=== PATIENT | female | born 1950 | race Caucasian/White ===

== ENCOUNTER → 2017-02-22 | Outpatient (CLI) | payer MEDICARE ==
[~2017-02-22] MED LIST: AMLO5 PO; BUPR150XL PO; CREON24 PO; DOCU1CAP39 PO; LEVO750T3 PO; OXYC-392 PO; OXYGENTANK NAS.CANULA
[2017-02-22 09:24] LABS: AUTOMATED NEUTROPHIL # 3.8 TH/MM3 (1.8-7.7); BASOPHIL % 0.4 % (0.0-2.0); EOSINOPHIL % 0.4 % (0.0-4.0); HEMATOCRIT 34.4 % (35.0-46.0); HEMO FLAGS DIFF FINAL; LYMPH % 16.4 % (9.0-44.0); LYMPHOCYTE # 0.8 TH/MM3 (1.0-4.8); MEAN CELL VOLUME 94.4 FL (80.0-100.0); MEAN CORPUSCULAR HEMOGLOBIN 30.4 PG (27.0-34.0); MEAN CORPUSCULAR HGB CONC 32.2 % (32.0-36.0); MONO % 1.3 % (0.0-8.0); NEUT % 81.5 % (16.0-70.0); PLATELET COUNT 507 TH/MM3 (150-450); RED BLOOD COUNT 3.64 MIL/MM3 (4.00-5.30); RED CELL DISTRIBUTION WIDTH 14.1 % (11.6-17.2); WHITE BLOOD COUNT 4.7 TH/MM3 (4.0-11.0)
[2017-02-22 10:00] LABS: ALKALINE PHOSPHATASE 102 U/L (45-117); ALT (GPT) 60 U/L (10-53); ANION GAP 8 MEQ/L (5-15); AST (GOT) 23 U/L (15-37); BICARBONATE 28.8 MEQ/L (21.0-32.0); BLOOD UREA NITROGEN 21 MG/DL (7-18); CHLORIDE 104 MEQ/L (98-107); GLOMERULAR FILTRATION RATE 108 ML/MIN (>89); GLUCOSE,FASTING 128 MG/DL (74-99); MAGNESIUM 2.2 MG/DL (1.5-2.5); POTASSIUM 3.8 MEQ/L (3.5-5.1); SODIUM (NA) 141 MEQ/L (136-145); TOTAL BILIRUBIN ADULT 0.4 MG/DL (0.2-1.0)
== END ==
LOC: OLAB 07:05
DX: C25.0 Malignant neoplasm of head of pancreas (principal); C78.7 Secondary malignant neoplasm of liver and intrahepatic bile duct
CPT/HCPCS: 36415; 80053; 83735; 85025

== ENCOUNTER → 2017-02-28 | Outpatient (CLI) | payer MEDICARE ==
[2017-02-28 08:48] LABS: AUTOMATED NEUTROPHIL # 4.5 TH/MM3 (1.8-7.7); BASOPHIL % 0.1 % (0.0-2.0); EOSINOPHIL % 0.3 % (0.0-4.0); HEMATOCRIT 34.5 % (35.0-46.0); HEMO FLAGS DIFF FINAL; LYMPH % 8.6 % (9.0-44.0); LYMPHOCYTE # 0.4 TH/MM3 (1.0-4.8); MEAN CORPUSCULAR HEMOGLOBIN 30.4 PG (27.0-34.0); MEAN CORPUSCULAR HGB CONC 32.3 % (32.0-36.0); MONO % 0.6 % (0.0-8.0); NEUT % 90.4 % (16.0-70.0); PLATELET COUNT 282 TH/MM3 (150-450); RED BLOOD COUNT 3.67 MIL/MM3 (4.00-5.30); RED CELL DISTRIBUTION WIDTH 13.5 % (11.6-17.2); WHITE BLOOD COUNT 4.9 TH/MM3 (4.0-11.0)
[2017-02-28 13:11] LABS: ALKALINE PHOSPHATASE 101 U/L (45-117); ALT (GPT) 84 U/L (10-53); ANION GAP 5 MEQ/L (5-15); AST (GOT) 34 U/L (15-37); BICARBONATE 30.3 MEQ/L (21.0-32.0); BLOOD UREA NITROGEN 22 MG/DL (7-18); CHLORIDE 103 MEQ/L (98-107); GLOMERULAR FILTRATION RATE 84 ML/MIN (>89); MAGNESIUM 2.2 MG/DL (1.5-2.5); POTASSIUM 4.4 MEQ/L (3.5-5.1); SODIUM (NA) 138 MEQ/L (136-145); TOTAL BILIRUBIN ADULT 0.3 MG/DL (0.2-1.0)
== END ==
LOC: OLAB 07:04
DX: C25.0 Malignant neoplasm of head of pancreas (principal); C78.7 Secondary malignant neoplasm of liver and intrahepatic bile duct
CPT/HCPCS: 36415; 80053; 83735; 85025

== ENCOUNTER 2017-03-16 11:41 | Inpatient (IN) | payer MEDICARE, OTHER ==
[~2017-03-16] VITALS: Ht 157.5 cm; Wt 57.2 kg
[2017-03-16] VITALS (8 sets, daily range): BP systolic 121–149; BP diastolic 66–80; PULSE 68–77; RESP 16–22; TEMP 97.8–98.4; O2SAT 92–95
--- NOTE | 2017-03-16 11:48 | PD ---
Physical Exam Date Seen by Provider: March 16, 2017 Time Seen by Provider: 11:46 Narrative [address] SCAN PER [address] MAK. H/O MERTASTATIC PANCREATIC CA. C/O SOB VSS wating for bed asignment Data Data Last Documented VS Vital Signs Date Time Temp Pulse Resp B/P Pulse Ox O2 Delivery O2 Flow Rate FiO2 03/16/17 11:43 98.4 72 20 148/80 93 Room Air [facility] Medical Record Reviewed: No Supervised Visit with YANNI: Max Mosley March 16, 2017 11:48
--- NOTE | 2017-03-16 12:08 | PD ---
HPI Chief Complaint: Respiratory Symptoms Time Seen by Provider: 12:07 Travel History International Travel<30 days: No Contact w/Intl Traveler<30days: No Traveled to known affect area: No History of Present Illness HPI 67-year-old female that presents to the ED for evaluation of shortness of breath for the past week. Patient has a chronic history of pancreatic cancer with metastasis to the lung, liver, stomach. Patient had a Whipple's procedure 2 years ago. Patient follows with Dr. Prajapati and was seen today and he was concerned the patient could be having a pleural effusion versus PE. Patient was told to come here to get some blood work as well as a CTA. Patient states that she's never had the shortness of breath before. No fevers chills or sweats. No chest pain. She doesn't use any inhalers. She denies any history of smoking. History of COPD or asthma. Per patient shortness of breath gets worse with motion but now is becoming more severe especially even when she sits. She has an allergy to morphine. She has not had any imaging. Per patient her doctor did a physical exam and felt that there was possible fluid on the right lower lung. Patient was supposed to have chemotherapy today but she did not want to the chemotherapy secondary to dyspnea symptoms. Last chemo was 2 weeks ago. PFSH Past Medical History Chemotherapy: Yes (2 WEEKS AGO) Diminished Hearing: No Tetanus Vaccination: > 5 Years Influenza Vaccination: Yes ?: Not Social History Alcohol Use: No Tobacco Use: No Substance Use: No Allergies-Medications (Allergen,Severity, Reaction): Coded Allergies: Morphine (Verified Allergy, Severe, Rash, 03/16/17) Reported Meds & Prescriptions Reported Meds & Active Scripts Active Reported Wellbutrin Xl 24 HR (Bupropion HCl) 150 Mg Tab 200 Mg PO DAILY Norvasc (Amlodipine Besylate) 5 Mg Tab 5 Mg PO DAILY Creon (Amylase/Lipase/Protease) 24,000-76,000-120,000 Units Cap 1 Cap PO TIDPC Review of Systems Except as stated in HPI: all other systems reviewed are Neg Physical Exam Narrative GENERAL: SKIN: Warm and dry. HEAD: Atraumatic. Normocephalic. EYES: Pupils equal and round. No scleral icterus. No injection or drainage. ENT: No nasal bleeding or discharge. Mucous membranes pink and moist. Tongue is midline. No uvula deviation. NECK: Trachea midline. No JVD. CARDIOVASCULAR: Regular rate and rhythm. No murmurs, S3, S4. RESPIRATORY: No accessory muscle use. Diminished breath sounds on the right lower quadrant. Breath sounds equal bilaterally. GASTROINTESTINAL: Abdomen soft, non-tender, nondistended. Hepatic and splenic margins not palpable. MUSCULOSKELETAL: Extremities without clubbing, cyanosis, or edema. No obvious deformities. Full range of motion of the upper and lower extremities bilaterally. 2+ pulses bilaterally. NEUROLOGICAL: Awake and alert. No obvious cranial nerve deficits. Motor grossly within normal limits. Five out of 5 muscle strength in the arms and legs. Normal speech. PSYCHIATRIC: Appropriate mood and affect; insight and judgment normal. Data Data Last Documented VS Vital Signs Date Time Temp Pulse Resp B/P Pulse Ox O2 Delivery O2 Flow Rate FiO2 03/16/17 14:26 71 20 129/72 92 Room Air 03/16/17 11:43 98.4 Orders B-Type Natriuretic Peptide (03/16/17 11:50) Ct Pulmonary Angiogram (03/16/17 11:56) Iohexol 350 Inj (Omnipaque 350 Inj) (03/16/17 13:18) Consult Cardiothoracic Surgery (03/16/17 ) Consult Medical Oncology (03/16/17 ) Prothrombin Time / Inr (Pt) (03/16/17 14:20) Act Partial Throm Time (Ptt) (03/16/17 14:20) Ecg Monitoring (03/16/17 14:20) Oximetry (03/16/17 14:20) Admit Order (Ed Use Only) (03/16/17 14:26) Labs Laboratory Tests Test 03/16/17 12:00 B-Type Natriuretic Peptide 30 PG/ML MDM Medical Decision Making Medical Screen Exam Complete: Yes Emergency Medical Condition: Yes Medical Record Reviewed: Yes Interpretation(s) BNP WNL Last Impressions CT Angiography 03/16/17 1156 Signed Impressions: Service Date/Time: Thursday, March 16, 2017 13:05 - CONCLUSION: Large right hemithorax needle thoracentesis Either biliary air or or portal air. CT scan of the abdomen and pelvis is suggested in this patient who has had previous Whipple. Mihai Harper MD FACR Differential Diagnosis PE versus pleural effusion versus shortness of breath versus worsening metastatic disease versus pneumonia Narrative Course 67-year-old female that presents to the ED for evaluation of shortness of breath. Patient was properly examined and was found to have signs and symptoms concerning for pleural effusion versus PE. Dr. Reynolds patient's oncologist had called and left a message to Dr. Shields who gave me the report the patient required CTA as well as a BNP. Patient comes here with paperwork saying the same. Labs and imaging ordered. Imaging did show a significant pleural effusion on the right lung. About two thirds of the lung cover. BNP within normal limits. Case was discussed in my attending who agrees with plan. I spoke with Dr. Reynolds patient's oncologist and was made aware of findings and he agrees that the CT abdomen findings does not appear to be acute and he doesn't believe that this is necessary to do any CT scan. He does recommend that we speak with cardiothoracic surgeon Dr. Coello. I spoke personally with Dr. Coello who will come here and see the patient for possible thoracocentesis versus chest tube placement. This was discussed with the patient and the family who are in agreement with plan. DEION was paged. Dr. Pisano agrees to admission. She is not sure what the patient needs inpatient versus obs and wants case management admission. Procedures EKG Prior to Arrival: No Diagnosis Primary Impression: Pleural effusion on right Additional Impression: Pancreatic cancer Qualified Code: C25.9 - Malignant neoplasm of pancreas, unspecified location of malignancy Admitting Information Admitting Physician Requests: Case Management Jhony Pacheco March 16, 2017 12:08
[2017-03-16] MEDS ORDERED: IOHEXOL 350 MG/ML 10 ML VIAL (for RAD DIAG) IV ONE (13:18)
[2017-03-16] MEDS ORDERED: BUPR150XL PO (13:32)
[2017-03-16] MEDS ORDERED: AMLO5 PO (13:32)
[2017-03-16] MEDS ORDERED: CREON24 PO (13:32)
--- NOTE | 2017-03-16 13:36 | RADRPT ---
EXAM DATE/TIME: 03/16/2017 13:05 [facility] COMPARISON: No previous studies available for comparison. INDICATIONS : Right posterior chest pain, shortness of breath. IV CONTRAST: 74 cc Omnipaque 350 (iohexol) IV RADIATION DOSE: 5.86 CTDIvol (mGy) MEDICAL HISTORY : Carcinoma, pancreas. SURGICAL HISTORY : Whipple procedure. ENCOUNTER: Initial ACUITY: 2 days PAIN SCALE: 5/10 LOCATION: Right posterior chest. TECHNIQUE: Volumetric scanning of the chest was performed using a pulmonary embolism protocol MIP images were re constructed. Using automated exposure control and adjustment of the mA and/or kV according to patien t size, radiation dose was kept as low as reasonably achievable to obtain optimal diagnostic quality images. FINDINGS: There is large right pleural effusion occupying approximately 2/3 of the right hemithorax. The left lung is clear There is minimal nonspecific adenopathy There is no pericardial effusion There is either biliary air or portal air present in the dome of the liver. CONCLUSION: Large right hemithorax needle thoracentesis Either biliary air or or portal air. CT scan of the abdomen and pelvis is suggested in this patient who has had previous Whipple. Mihai Harper MD FACR on March 16, 2017 at 13:30 Board Certified Radiologist. This report was verified electronically.
[2017-03-16] MEDS ORDERED: MAGNESIUM HYDROXIDE SUSP 30 ML CUP PO PRN (14:30)
[2017-03-16] MEDS ORDERED: ONDANSETRON HCL 4 MG/2 ML VIAL IVP PRN (14:30)
[2017-03-16] MEDS: DOCUSATE SODIUM 100 MG CAP PO SCH ×2 (14:30→21:58)
[2017-03-16] MEDS ORDERED: SODIUM CHLORIDE 0.9% FLUSH 10 ML FLUSH IV FLUSH PRN (14:30)
[2017-03-16] MEDS ORDERED: PROCHLORPERAZINE 25 MG SUPP RECTAL PRN (14:30)
[2017-03-16] MEDS ORDERED: NALOXONE HCL 0.4 MG/ML AMP IV PRN (14:45)
[2017-03-16 15:15] LABS: APTT (PATIENT) 25.9 SEC (24.3-30.1); PROTHROMBIN TIME - PATIENT 10.5 SEC (9.8-11.6)
--- NOTE | 2017-03-16 15:18 | HHI.HP ---
[facility] Shawn Benavides MD Admission Diagnosis right pleural effusion, pancreatic cancer with mets Diagnoses: Chief Complaint: sob Travel History International Travel<30 Days: No Contact w/Intl Traveler <30 Da: No Traveled to Known Affected Are: No History of Present Illness The patient is a very pleasant 69-year-old female with past medical history pancreatic cancer with metastasis to the lung, liver, stomach, Whipple procedure 2013, currently restarted with Dr. Reynolds oncology. The patient seen today by Dr. Reynolds's office who sent her here for further evaluation of breath. There is a concern lower infusion versus PE. Patient had a CTA in the emergency room shows right pleural effusion. Dr. Reynolds recommended CT surgeon for evaluation, chest tube vs thoracentesis. Patient says shortness of breath started for the past 5 days, associated lower extremity edema for the past 3 days. She has some shortness of breath with ambulation and she feels tired. She has constant right back pain. The pain is worse when lying down and with certain movements. She has a non-productive cough. Denies fever or chills. Denies headaches, lightheadedness, chest pain, palpitations, diaphoresis. No nausea or vomiting. Has normal bowel movements. Says she takes Creon. No urinary complaints. No bladder or bowel incontinence. No motor or sensory deficit. Review of Systems Except as stated in HPI: all other systems reviewed are Neg Past Family Social History Past Medical History Pancreatic cancer with metastasis to the lung, liver, stomach, Whipple procedure 2013 HTN Past Surgical History Whipple procedure 2014 Lower lip surgery Exploratory lap Cyst removal right buttocks Reported Medications Last Impressions CT Angiography 03/16/17 1156 Signed Impressions: Service Date/Time: Thursday, March 16, 2017 13:05 - CONCLUSION: Large right hemithorax needle thoracentesis Either biliary air or or portal air. CT scan of the abdomen and pelvis is suggested in this patient who has had previous Whipple. Mihai Harper MD FACR Allergies: Coded Allergies: Morphine (Verified Allergy, Severe, Rash, 03/16/17) Family History Mother had hypertension Siblings are healthy Social History Denies current or history of tobacco use, illicit drug use or alcohol use. Physical Exam Vital Signs Vital Signs Date Time Temp Pulse Resp B/P Pulse Ox O2 Delivery O2 Flow Rate FiO2 03/16/17 14:56 18 94 Nasal Cannula 2 03/16/17 14:26 71 20 129/72 92 Room Air 03/16/17 12:01 20 93 Room Air 03/16/17 11:43 98.4 72 20 148/80 93 Room Air Physical Exam GENERAL: This is a very pleasant 67-year-old female, well-nourished, well- developed patient, sitting up in the bed soft speech with some shortness of breath. SKIN: No rashes, ecchymoses or lesions. Cool and dry. HEAD: Atraumatic. Normocephalic. No temporal or scalp tenderness. EYES: Pupils equal round and reactive. Extraocular motions intact. No scleral icterus. No injection or drainage. ENT: Nose without bleeding, purulent drainage or septal hematoma. Throat without erythema, tonsillar hypertrophy or exudate. Uvula midline. Airway patent. NECK: Trachea midline. No JVD or lymphadenopathy. Supple, nontender, no meningeal signs. CARDIOVASCULAR: Regular rate and rhythm without murmurs, gallops, or rubs. RESPIRATORY: Decreased breaths sounds right lower lung field. No wheezing. GASTROINTESTINAL: Abdomen soft, non-tender, nondistended. No hepato-splenomegaly , or palpable masses. No guarding. MUSCULOSKELETAL: Extremities without clubbing, cyanosis. Trace lower extremity edema. No joint tenderness, effusion, or edema noted. No calf tenderness. Negative Homans sign bilaterally. NEUROLOGICAL: Awake and alert. Cranial nerves II through XII intact. Motor and sensory grossly within normal limits. Five out of 5 muscle strength in all muscle groups. Normal speech. Laboratory Laboratory Tests Test 03/16/17 03/16/17 12:00 14:00 B-Type Natriuretic Peptide 30 Prothrombin Time 10.5 Prothromb Time International 1.0 Ratio Activated Partial 25.9 Thromboplast Time Imaging Last Impressions CT Angiography 03/16/17 2296 Signed Impressions: Service Date/Time: Thursday, March 16, 2017 13:05 - CONCLUSION: Large right hemithorax needle thoracentesis Either biliary air or or portal air. CT scan of the abdomen and pelvis is suggested in this patient who has had previous Whipple. Mihai Harper MD FACR Assessment and Plan Assessment and Plan Very pleasant 67-year-old female with: Shortness of breath and moderate large right pleural effusion, likely malignant. Pancreatic cancer with metastasis to the lung, liver, stomach, Whipple procedure [address] Reynolds oncology currently on chemo CT Chest reviewed findings discussed with ER PA, patient. Consult Dr. Reynolds her oncology doctor. He recommends cardiothoracic surgeon for evaluation. Keep nothing by mouth this time. Patient might need thoracentesis versus chest tube. Oxygen supplied by nasal cannula, keep oxygen saturation more than 92%. She is saturating well on 2 L nasal cannula at this time. Monitor closely. Pain medications per pain scale I'm also Dilaudid for breakthrough pain. Patient is allergic to morphine. Restart Creon HTN. Restart amlodipine. Currently blood pressure is controlled at this time. Monitor blood pressure and adjust medications as needed. DVT prophylaxis SCD/teds. Hold on chemical prophylaxis at this time due to possible thoracentesis versus chest tube Physician Certification 2 Midnight Certification Type: Admission for Inpatient Services Order for Inpatient Services The services are ordered in accordance with Medicare regulations or non- Medicare payer requirements, as applicable. In the case of services not specified as inpatient-only, they are appropriately provided as inpatient services in accordance with the 2-midnight benchmark. Estimated LOS (days): 3 days is the estimated time the patient will need to remain in the hospital, assuming treatment plan goals are met and no additional complications. Post-Hospital Plan: Home Mariluz Julian MD March 16, 2017 15:18
[2017-03-16] MEDS ORDERED: LIDOCAINE 1%/EPINEPHrine 1:100,000 SOLN 20 ML VIAL INFIL SCH (16:15)
--- NOTE | 2017-03-16 17:32 | PD.OP ---
cc: Emily Yadav MD; Flaco Reynolds MD Operative Report Date of Surgery: March 16, 2017 Preoperative Diagnosis: (1) Pancreatic cancer (2) Pleural effusion on right Postoperative Diagnosis: same Procedure: Right chest tube insertion Anesthesia: Local Surgeon: Emily Yadav Property Assessment Monitor(s): none Operation and Findings: After informed consent and a time out, the right chest was prepped and draped. 1% Lidocaine was infiltrated in the skin and subcutaneous tissue. A small incision was made and a fine clamp was used to bluntly enter the right pleural space. Serosanguineous fluid was present, and a 28F chest tube was inserted and secured with a 2-0 silk stitch. Overall, 2 liters of fluid was drained. Fluid was submitted for cytology. The patient tolerated the procedure well and a CXR is pending. Emily Yadav MD March 16, 2017 17:32
[2017-03-16] MEDS: HYDROmorphone HCL PF 1 MG/ML VIAL IV PRN ×2 (17:34→21:58)
--- NOTE | 2017-03-16 17:42 | PD.CONS ---
History of Present Illness Service CT Surgery Consult Requested By Dr. Reynolds Reason for Consult Right pleural effusion, dyspnea Primary Care Physician Shawn Benavides MD Diagnoses: (1) Pancreatic cancer (2) Pleural effusion on right History of Present Illness 67 y/o female presents to the ED with dyspnea. she was directed from Dr. Reynolds ' office after a right pleural effusion was found on recent imaging. She has a h/o pancreatic carcinoma s/p Whipple resection at [facility] ~3 yrs ago. She has subsequently done fairly well with chemotherapy until this was found. She denies nausea, vomiting, fever, chills, cough. Review of Systems Constitutional: DENIES: Diaphoretic episodes, Fatigue, Fever, Weight gain, Weight loss, Chills, Dizziness, Change in appetite, Night Sweats Endocrine: DENIES: Abnorml menstrual pattern, Heat/cold intolerance, Polydipsia , Polyuria, Polyphagia Eyes: DENIES: Blurred vision, Diplopia, Eye inflammation, Eye pain, Vision loss , Photosensitivity, Double Vision Ears, nose, mouth, throat: DENIES: Tinnitus, Hearing loss, Vertigo, Nasal discharge, Oral lesions, Throat pain, Hoarseness, Ear Pain, Running Nose, Epistaxis, Sinus Pain, Toothache, Odynophagia Respiratory: COMPLAINS OF: Shortness of breath, DENIES: Apneas, Cough, Snoring , Wheezing, Hemoptysis, Sputum production Cardiovascular: DENIES: Chest pain, Palpitations, Syncope, Dyspnea on Exertion , PND, Lower Extremity Edema, Orthopnea, Claudication Gastrointestinal: DENIES: Abdominal pain, Black stools, Bloody stools, Constipation, Diarrhea, Nausea, Vomiting, Difficulty Swallowing, Anorexia Genitourinary: DENIES: Abnormal vaginal bleeding, Dysmenorrhea, Dyspareunia, Sexual dysfunction, Urinary frequency, Urinary incontinence, Urgency, Hematuria , Dysuria, Nocturia, Vaginal discharge Musculoskeletal: DENIES: Joint pain, Muscle aches, Stiffness, Joint Swelling, Back pain, Neck pain Integumentary: DENIES: Abnormal pigmentation, Pruritus, Rash, Nail changes, Breast masses, Breast skin changes, Nipple discharge Hematologic/lymphatic: DENIES: Bruising, Lymphadenopathy Immunologic/allergic: DENIES: Eczema, Urticaria Neurologic: DENIES: Abnormal gait, Headache, Localized weakness, Paresthesias, Seizures, Speech Problems, Tremor, Poor Balance Psychiatric: DENIES: Anxiety, Confusion, Mood changes, Depression, Hallucinations, Agitation, Suicidal Ideation, Homicidal Ideation, Delusions Past Family Social History Allergies: Coded Allergies: Morphine (Verified Allergy, Severe, Rash, 03/16/17) Past Medical History Past Medical History Pancreatic cancer with metastasis to the lung, liver, stomach, Whipple procedure 2013 HTN Past Surgical History Whipple procedure 2014 Lower lip surgery Exploratory lap Cyst removal right buttocks Active Ordered Medications Current Medications Medications (Trade) Dose Ordered Sig/Jaziel Route Start Time Stop Time Status Last Admin (NS Flush) 2 ml UNSCH PRN IV FLUSH 03/16/17 14:30 (NS Flush) 2 ml BID IV FLUSH 03/16/17 21:00 (Tylenol) 650 mg Q4H PRN PO 03/16/17 14:30 (Zofran Inj) 4 mg Q6H PRN IVP 03/16/17 14:30 (Compazine Supp) 25 mg Q12H PRN RECTAL 03/16/17 14:30 (Colace) 100 mg Q12H PO 03/16/17 14:30 (Milk Of Magnesia Liq) 30 ml Q12H PRN PO 03/16/17 14:30 (Restoril) 15 mg HS PRN PO 03/16/17 14:30 (Norvasc) 5 mg DAILY PO 03/17/17 09:00 (Wellbutrin Sr 12 Hr) 200 mg DAILY PO 03/17/17 09:00 (Creon 24-76-120) 1 cap TIDPC PO 03/16/17 18:30 ([place] 5-325 Mg) 1 tab Q4H PRN PO 03/16/17 14:45 ([place] 10-325 Mg) 1 tab Q4H PRN PO 03/16/17 14:45 (Dilaudid Pf Inj) 0.5 mg Q3H PRN IV 03/16/17 14:45 (Narcan Inj) 0.4 mg UNSCH PRN IV 03/16/17 14:45 Current Medications Medications (Trade) Dose Ordered Sig/Jaziel Route Start Time Stop Time Status Last Admin (NS Flush) 2 ml UNSCH PRN IV FLUSH 03/16/17 14:30 (NS Flush) 2 ml BID IV FLUSH 03/16/17 21:00 (Tylenol) 650 mg Q4H PRN PO 03/16/17 14:30 (Zofran Inj) 4 mg Q6H PRN IVP 03/16/17 14:30 (Compazine Supp) 25 mg Q12H PRN RECTAL 03/16/17 14:30 (Colace) 100 mg Q12H PO 03/16/17 14:30 (Milk Of Magnbozena Liq) 30 ml Q12H PRN PO 03/16/17 14:30 (Restoril) 15 mg HS PRN PO 03/16/17 14:30 (Norvasc) 5 mg DAILY PO 03/17/17 09:00 (Wellbutrin Sr 12 Hr) 200 mg DAILY PO 03/17/17 09:00 (Creon 24-76-120) 1 cap TIDPC PO 03/16/17 18:30 ([place] 5-325 Mg) 1 tab Q4H PRN PO 03/16/17 14:45 ([place] 10-325 Mg) 1 tab Q4H PRN PO 03/16/17 14:45 (Dilaudid Pf Inj) 0.5 mg Q3H PRN IV 03/16/17 14:45 (Narcan Inj) 0.4 mg UNSCH PRN IV 03/16/17 14:45 Family History unremarkable 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 SKIN: No rashes, ecchymoses or lesions. Cool and dry. HEAD: Atraumatic. Normocephalic. No temporal or scalp tenderness. EYES: Pupils equal round and reactive. Extraocular motions intact. No scleral icterus. No injection or drainage. ENT: Nose without bleeding, purulent drainage or septal hematoma. Throat without erythema, tonsillar hypertrophy or exudate. Uvula midline. Airway patent. NECK: Trachea midline. No JVD or lymphadenopathy. Supple, nontender, no meningeal signs. CARDIOVASCULAR: Regular rate and rhythm without murmurs, gallops, or rubs. RESPIRATORY: decreased BS on right. GASTROINTESTINAL: Abdomen soft, non-tender, nondistended. No hepato-splenomegaly , or palpable masses. No guarding. Well-healed abdominal incisions MUSCULOSKELETAL: Extremities without clubbing, cyanosis, or edema. No joint tenderness, effusion, or edema noted. No calf tenderness. Negative Homans sign bilaterally. NEUROLOGICAL: Awake and alert. Cranial nerves II through XII intact. Motor and sensory grossly within normal limits. Five out of 5 muscle strength in all muscle groups. Normal speech. Laboratory Laboratory Tests Test 03/16/17 03/16/17 12:00 14:00 B-Type Natriuretic Peptide 30 Prothrombin Time 10.5 Prothromb Time International 1.0 Ratio Activated Partial 25.9 Thromboplast Time Imaging Last Impressions CT Angiography 03/16/17 1156 Signed Impressions: Service Date/Time: Thursday, March 16, 2017 13:05 - CONCLUSION: Large right hemithorax needle thoracentesis Either biliary air or or portal air. CT scan of the abdomen and pelvis is suggested in this patient who has had previous Whipple. Mihai Harper MD FACR Course Patient admitted for chest tube placement and pleuradesis. Assessment and Plan Problem List: (1) Pancreatic cancer Status: Acute (2) Pleural effusion on right Status: Acute Assessment and Plan Recommend right chest tube placement and pleuradesis when the drainage is less than 150ml/24 hrs. Plan discussed with her and her . Problem Qualifiers (1) Pancreatic cancer: Qualified Code: C25.9 - Malignant neoplasm of pancreas, unspecified location of malignancy Emily Yadav MD March 16, 2017 17:42
--- NOTE | 2017-03-16 17:58 | RADRPT ---
EXAM DATE/TIME: 03/16/2017 17:41 [facility] COMPARISON: CT PULMONARY ANGIOGRAM, March 16, 2017, 13:05. INDICATIONS : Right chest tube placement MEDICAL HISTORY : Carcinoma, pancreas SURGICAL HISTORY : Whipple procedure, right side port ENCOUNTER: Subsequent ACUITY: 1 day PAIN SCORE: Non-responsive. LOCATION: Right chest FINDINGS: There has been interval insertion of a right thoracostomy tube with evacuation of most of the right e ffusion. There is mild residual parenchymal disease and effusion at the base. A tiny apical pneumotho rax is present without 12-13 mm separation of apical pleural layers. Right chest port is again noted. Left lung is stable and clear. Cardiac contours are satisfactory. CONCLUSION: Femoral thoracostomy tube placement. Minimal residual right base effusion and mild asthma parenchymal opacity. Tiny apical pneumothorax John Barba MD on March 16, 2017 at 17:54 Board Certified Radiologist. This report was verified electronically.
[2017-03-16] MEDS: LIPASE/PROTEASE/AMYLASE (24,000/76,000/120,000) CAP PO SCH (18:30)
[2017-03-16] MEDS: SODIUM CHLORIDE 0.9% FLUSH 10 ML FLUSH IV FLUSH SCH (21:00)
[2017-03-17] VITALS (7 sets, daily range): BP systolic 96–140; BP diastolic 55–69; PULSE 62–70; RESP 15–20; TEMP 97.2–100.2; O2SAT 90–96
[2017-03-17] MEDS: HYDROmorphone HCL PF 1 MG/ML VIAL IV PRN ×4 (02:31→17:25)
--- NOTE | 2017-03-17 05:03 | RADRPT ---
EXAM DATE/TIME: 03/17/2017 04:06 [facility] COMPARISON: CHEST SINGLE AP, March 16, 2017, 17:41. INDICATIONS : Shortness of breath, possible pulmonary disease. MEDICAL HISTORY : Carcinoma, pancreas. SURGICAL HISTORY : Whipple ENCOUNTER: Subsequent ACUITY: 2 days PAIN SCORE: 4/10 LOCATION: Bilateral chest FINDINGS: There is a small 5 mm right apical pneumothorax. This is decreased in size compared to the prior stud y. Right chest tube remains in place. There is atelectasis in both lung bases. Otherwise, no other si gnificant changes are demonstrated. CONCLUSION: Small 5 mm right apical pneumothorax. Puma Pierre MD on March 17, 2017 at 5:01 Board Certified Radiologist. This report was verified electronically.
[2017-03-17] MEDS: ACETAMINOPHEN/HYDROcodone 325 MG/10 MG TAB PO PRN ×4 (05:36→18:29)
--- NOTE | 2017-03-17 07:23 | HHI.PR ---
Subjective Remarks Patient feels much better after chest tube placed yesterday. Says she had 2 L removed yesterday and felt much better. Less shortness of breath. Still with some pain especially with deep inspiration. Denies fevers or chills overnight. Coughing nonproductive cough. Encourage incentive spirometry. Reports some serosanguineous discharge but the surgical site. She feels is improving. Denies palpitations, nausea, diaphoresis, vomiting, constipation. Objective Vitals Vital Signs Date Time Temp Pulse Resp B/P Pulse Ox O2 Delivery O2 Flow Rate FiO2 03/17/17 05:00 100.2 62 15 140/ 94 03/17/17 03:19 16 03/17/17 00:00 99.3 70 16 121/65 96 03/16/17 20:49 74 03/16/17 20:00 98.2 72 16 127/72 95 03/16/17 18:47 68 03/16/17 17:26 97.8 68 22 121/66 94 03/16/17 16:42 97.9 77 20 149/79 95 03/16/17 14:56 18 94 Nasal Cannula 2 03/16/17 14:26 71 20 129/72 92 Room Air 03/16/17 12:01 20 93 Room Air 03/16/17 11:43 98.4 72 20 148/80 93 Room Air I/O 03/16/17 03/16/17 03/16/17 03/17/17 03/17/17 03/17/17 07:00 15:00 23:00 07:00 15:00 23:00 Intake Total 240 ml Balance 240 ml Intake Oral 240 ml Imaging Last Impressions Chest X-Ray 03/17/17 0600 Signed Impressions: Service Date/Time: Friday, March 17, 2017 04:06 - CONCLUSION: Small 5 mm right apical pneumothorax. Puma Pierre MD CT Angiography 03/16/17 1156 Signed Impressions: Service Date/Time: Thursday, March 16, 2017 13:05 - CONCLUSION: Large right hemithorax needle thoracentesis Either biliary air or or portal air. CT scan of the abdomen and pelvis is suggested in this patient who has had previous Whipple. Mihai Harper MD FACR Objective Remarks GENERAL: This is a very pleasant 67-year-old female, well-nourished, well- developed patient, sitting up in the bed soft speech with some shortness of breath. SKIN: No rashes, ecchymoses or lesions. Cool and dry. HEAD: Atraumatic. Normocephalic. No temporal or scalp tenderness. EYES: Pupils equal round and reactive. Extraocular motions intact. No scleral icterus. No injection or drainage. ENT: Nose without bleeding, purulent drainage or septal hematoma. Throat without erythema, tonsillar hypertrophy or exudate. Uvula midline. Airway patent. NECK: Trachea midline. No JVD or lymphadenopathy. Supple, nontender, no meningeal signs. CARDIOVASCULAR: Regular rate and rhythm without murmurs, gallops, or rubs. RESPIRATORY: Decreased breaths sounds right lower lung field, improving . Chest tube in place. Dressing soaked with sdrosanguinous discharge, another dresign placed on the top reinforcing. No wheezing. GASTROINTESTINAL: Abdomen soft, non-tender, nondistended. No hepato-splenomegaly , or palpable masses. No guarding. MUSCULOSKELETAL: Extremities without clubbing, cyanosis. Trace lower extremity edema. No joint tenderness, effusion, or edema noted. No calf tenderness. Negative Homans sign bilaterally. NEUROLOGICAL: Awake and alert. Cranial nerves II through XII intact. Motor and sensory grossly within normal limits. Five out of 5 muscle strength in all muscle groups. Normal speech. A/P Assessment and Plan Very pleasant 67-year-old female with: Shortness of breath and moderate large right pleural effusion, likely malignant. Chest tube placed 03/16 Dr Coello CTS. Small Pneumothorax 5% Pancreatic cancer with metastasis to the lung, liver, stomach, Whipple procedure [address] Reynolds oncology currently on chemo CT Chest reviewed findings discussed with ER PA, patient. Consult Dr. Reynolds her oncology doctor. He recommends cardiothoracic surgeon for evaluation. S/P Right chest tube insertion by Dr Coello CTS on 03/16/17. Improving CXR 03/17 reviewed and discusse dwith the patient Small 5 mm right apical pneumothorax. Patient is satting well on nasal canula. Oxygen supplied by nasal cannula, keep oxygen saturation more than 92%. She is saturating well on 2 L nasal cannula at this time. Monitor closely. Pain medications per pain scale PO and also Dilaudid for breakthrough pain. Patient is allergic to morphine. Continue Creon HTN. Restart amlodipine. Currently blood pressure is controlled at this time. Monitor blood pressure and adjust medications as needed. DVT prophylaxis SCD/teds. Hold on chemical prophylaxis at this time due to chest tube, restart as indicated by CTS Discussed with the patient, nurse, family at bedside Mariluz Julian MD March 17, 2017 07:23
[2017-03-17 07:43] LABS: AUTOMATED NEUTROPHIL # 7.7 TH/MM3 (1.8-7.7); BASOPHIL # 0.1 TH/MM3 (0-0.2); BASOPHIL % 0.7 % (0.0-2.0); EOSINOPHIL # 0.2 TH/MM3 (0-0.4); EOSINOPHIL % 1.6 % (0.0-4.0); HEMATOCRIT 32.6 % (35.0-46.0); LYMPH % 9.3 % (9.0-44.0); LYMPHOCYTE # 0.9 TH/MM3 (1.0-4.8); MEAN CELL VOLUME 93.3 FL (80.0-100.0); MEAN CORPUSCULAR HEMOGLOBIN 31.4 PG (27.0-34.0); MEAN CORPUSCULAR HGB CONC 33.7 % (32.0-36.0); NEUT % 80.4 % (16.0-70.0); PLATELET COUNT 646 TH/MM3 (150-450); RED CELL DISTRIBUTION WIDTH 15.1 % (11.6-17.2); WHITE BLOOD COUNT 9.6 TH/MM3 (4.0-11.0)
[2017-03-17 07:52] LABS: HEMO FLAGS AUTO DIFF
[2017-03-17 08:12] LABS: BICARBONATE 32.4 MEQ/L (21.0-32.0); POTASSIUM 3.2 MEQ/L (3.5-5.1)
[2017-03-17 08:51] LABS: BANDS 15 % (0-6); EOSINOPHILS 2 % (0-4); NEUTROPHIL # MANUAL DIFF 7.1 TH/MM3 (1.8-7.7); PLATELET ESTIMATE SMEAR HIGH (NORMAL); PLATELET MORPHOLOGY NORMAL (NORMAL); POLYS (SEG NEUTROPHILS) 59 % (16-70); SCAN/DIFF FINAL DIFF MANUAL; WBC DIFF SAMPLE 100
[2017-03-17] MEDS: amLODIPine BESYLATE 5 MG TAB PO SCH (09:28)
[2017-03-17] MEDS: buPROPion HCL 100 MG SUSTAINED RELEASE TAB PO SCH (09:28)
[2017-03-17] MEDS: LIPASE/PROTEASE/AMYLASE (24,000/76,000/120,000) CAP PO SCH ×3 (09:28→17:24)
[2017-03-17] MEDS: SODIUM CHLORIDE 0.9% FLUSH 10 ML FLUSH IV FLUSH SCH ×2 (09:29→22:16)
--- NOTE | 2017-03-17 09:47 | MB ---
cc: CELSO GARCIA DATE OF CONSULTATION: 03/17/2017 CHIEF COMPLAINT 1. Massive right pleural effusion 2. Metastatic pancreatic cancer. 3. Probable progression of disease. PATIENT PROFILE The patient is a 67-year-old female. She is for the second time, and has been to the same person for 35 years. She has two sons from the first , one at the age of 24 the other is well. She has a daughter and five grandchildren. The patient currently lives in [place], [place]. 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 She has an occasional glass of wine. She has never smoked. HISTORY OF PRESENT ILLNESS The patient is a 66-year-old female who developed abdominal pain and obstructive jaundice. 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 She was treated with adjuvant gemcitabine from 07/22/2014 through 10/2014. She then did well but unfortunately developed metastatic disease to the liver identified in October. She was treated with Folfirinox chemotherapy and underwent an abdominal exploration for possible resection of liver metastases which was unsuccessful. She developed progressive disease. Her treatment was administered in [place] by a medical oncologist. She was then switched to a regimen of gemcitabine and Abraxane. Her most recent treatment was again given in [place] and I saw her yesterday to assume her care and administer further chemotherapy. When she was seen in the office she complained of shortness of breath and her lung sounds were diminished throughout the right lung suggestive of a large effusion. I referred her to the emergency room and a CT scan of the thorax showed a massive right pleural effusion. No evidence of pulmonary emboli and Dr. Yadav was kind enough to place a chest tube. I feel that she probably has progressive disease, not just simply because of the right pleural effusion but she has had a rising CA19-9 and the current value is 1650 on March 09, 2017. Her chest tube was placed yesterday and she is breathing much better. PAST SURGICAL HISTORY 1. Whipple procedure 06/16/2014 for pathologic T3, N0, M0, pancreatic cancer. 2. Cataract. 3. Dqyjji-[id number]-Mcqj placement. 4. Abdominal exploration 02/08/2016 for potential resection of liver metastases. The operation was aborted due to extrahepatic disease involving perigastric lymph nodes. PAST MEDICAL HISTORY 1. Pancreatic insufficiency. 2. Hypertension. 3. Depression. 4. Stage IV pancreatic cancer. MEDICATIONS PRIOR TO ADMISSION 1. Creon 2. Norvasc. 3. oxycodone 4. Wellbutrin. 5. Xanax. ALLERGIES MORPHINE SULFATE. FAMILY HISTORY: The family history is noncontributory. PHYSICAL EXAMINATION VITAL SIGNS: Temperature 100.2, pulse 64, respiratory rate 18 afebrile. O2 sat 94%. HEAD, EYES, EARS, NOSE, AND THROAT: Head is normocephalic. Conjunctiva normal. Oropharynx unremarkable. LYMPHATICS: No adenopathy. HEART: Regular rhythm. LUNGS: Left lung clear, right lung decreased breath sounds with chest tube in place. ABDOMEN: No obvious splenomegaly. No tenderness. EXTREMITIES: Trace edema. MUSCULOSKELETAL: No bone pain. NEUROLOGIC: No weakness. Cognition, affect normal. SKIN: Normal. ASSESSMENT 67-year female with pancreatic cancer. She presents with a massive right pleural effusion occupying approximately 80% of the lung, I believe this due to malignancy. PLAN A chest tube has been placed as requested. She will undergo pleurodesis and following this she can be discharged home. Tomorrow if there is no significant bleeding in the chest tube, I would recommend beginning Lovenox. In looking at her output there is a fair amount of blood in the tube presently but hopefully by tomorrow it will have stopped. When she is discharged I will resume Abraxane and gemcitabine as she has only received one treatment and unfortunately we do not have effective third line regimens for pancreatic cancer. Thank you Dr Yadav for placing the chest tube. MD KATELYNN Musa/ines /9:22 AM /9:36 AM MTDTika
--- NOTE | 2017-03-17 13:23 | PD.CAR.PN ---
CVT Progress Note Subjective/Hospital Course: Doing well. Some fluid leaking around tube saturating the dressing. Objective: Vital Signs Date Time Temp Pulse Resp B/P Pulse Ox O2 Delivery O2 Flow Rate FiO2 03/17/17 11:50 97.2 68 20 96/55 90 03/17/17 07:50 99.3 65 20 125/69 94 03/17/17 07:28 18 03/17/17 07:28 18 03/17/17 05:00 100.2 62 15 140/ 94 03/17/17 00:00 99.3 70 16 121/65 96 03/16/17 20:49 74 03/16/17 20:00 98.2 72 16 127/72 95 03/16/17 18:47 68 03/16/17 17:26 97.8 68 22 121/66 94 03/16/17 16:42 97.9 77 20 149/79 95 03/16/17 14:56 18 94 Nasal Cannula 2 03/16/17 14:26 71 20 129/72 92 Room Air Labs: Laboratory Tests Test 03/17/17 07:10 White Blood Count 9.6 TH/MM3 (4.0-11.0) Red Blood Count 3.50 MIL/MM3 (4.00-5.30) Hemoglobin 11.0 GM/DL (11.6-15.3) Hematocrit 32.6 % (35.0-46.0) Mean Corpuscular Volume 93.3 FL (80.0-100.0) Mean Corpuscular Hemoglobin 31.4 PG (27.0-34.0) Mean Corpuscular Hemoglobin 33.7 % Concent (32.0-36.0) Red Cell Distribution Width 15.1 % (11.6-17.2) Platelet Count 646 TH/MM3 (150-450) Mean Platelet Volume 7.3 FL (7.0-11.0) Neutrophils (%) (Auto) 80.4 % (16.0-70.0) Lymphocytes (%) (Auto) 9.3 % (9.0-44.0) Monocytes (%) (Auto) 8.0 % (0.0-8.0) Eosinophils (%) (Auto) 1.6 % (0.0-4.0) Basophils (%) (Auto) 0.7 % (0.0-2.0) Neutrophils # (Auto) 7.7 TH/MM3 (1.8-7.7) Lymphocytes # (Auto) 0.9 TH/MM3 (1.0-4.8) Monocytes # (Auto) 0.8 TH/MM3 (0-0.9) Eosinophils # (Auto) 0.2 TH/MM3 (0-0.4) Basophils # (Auto) 0.1 TH/MM3 (0-0.2) CBC Comment AUTO DIFF Differential Total Cells 100 Counted Neutrophils % (Manual) 59 % (16-70) Band Neutrophils % 15 % (0-6) Lymphocytes % 17 % (9-44) Monocytes % 7 % (0-8) Eosinophils % 2 % (0-4) Neutrophils # (Manual) 7.1 TH/MM3 (1.8-7.7) Differential Comment FINAL DIFF MANUAL Platelet Estimate HIGH (NORMAL) Platelet Morphology Comment NORMAL (NORMAL) Sodium Level 135 MEQ/L (136-145) Potassium Level 3.2 MEQ/L (3.5-5.1) Chloride Level 95 MEQ/L (98-107) Carbon Dioxide Level 32.4 MEQ/L (21.0-32.0) Anion Gap 8 MEQ/L (5-15) Blood Urea Nitrogen 13 MG/DL (7-18) Creatinine 0.47 MG/DL (0.50-1.00) Estimat Glomerular Filtration 133 ML/MIN Rate (>89) Random Glucose 123 MG/DL (74-106) Calcium Level 7.9 MG/DL (8.5-10.1) Result Diagram: 03/17/17 0710 03/17/17 07 Imaging: Last 24 hours Impressions Chest X-Ray 03/17/17 0600 Signed Impressions: Service Date/Time: Friday, March 17, 2017 04:06 - CONCLUSION: Small 5 mm right apical pneumothorax. Puma Pierre MD Cardiovascular: RRR Pulmonary: CTA GI/: NABS, NT CT: ~250ml/24 hrs, no air leak Plan: Continue chest tube to suction. She may be off suction to walk in the halls. CXR in AM Talc pleuradesis when drainage decreases. Emily Yadav MD March 17, 2017 13:23
[2017-03-17] MEDS: DOCUSATE SODIUM 100 MG CAP PO SCH (13:39)
[2017-03-17] MEDS ORDERED: POTASSIUM CHLORIDE 20 MEQ CONTROLLED RELEASE TAB PO ONE (16:15)
[2017-03-17] MEDS: ACETAMINOPHEN/HYDROcodone 325 MG/5 MG TAB PO PRN (22:16)
[2017-03-18] VITALS (8 sets, daily range): BP systolic 96–114; BP diastolic 55–75; PULSE 64–80; RESP 15–20; TEMP 97.5–100.7; O2SAT 92–94
[2017-03-18] MEDS: DOCUSATE SODIUM 100 MG CAP PO SCH ×2 (04:17→13:44)
--- NOTE | 2017-03-18 04:50 | RADRPT ---
EXAM DATE/TIME: 03/18/2017 04:18 [facility] COMPARISON: CHEST SINGLE AP, March 17, 2017, 4:06. INDICATIONS : Shortness of breath, possible pulmonary disease. MEDICAL HISTORY : Carcinoma, pancreas. SURGICAL HISTORY : Whipple ENCOUNTER: Subsequent ACUITY: 3 days PAIN SCORE: 5/10 LOCATION: Bilateral chest FINDINGS: Right chest tube remains in place. There is a stable tiny right 5 mm apical pneumothorax. There is st able atelectasis in the right lung base. There is stable mild atelectasis in the left lung base. The heart size is stable. No significant pleural effusions. CONCLUSION: Stable tiny right 5 mm apical pneumothorax. Puma Pierre MD on March 18, 2017 at 4:47 Board Certified Radiologist. This report was verified electronically.
[2017-03-18] MEDS: ACETAMINOPHEN/HYDROcodone 325 MG/5 MG TAB PO PRN ×3 (07:23→20:29)
[2017-03-18] MEDS: buPROPion HCL 100 MG SUSTAINED RELEASE TAB PO SCH (08:32)
[2017-03-18] MEDS: LIPASE/PROTEASE/AMYLASE (24,000/76,000/120,000) CAP PO SCH ×3 (08:32→17:02)
[2017-03-18] MEDS: amLODIPine BESYLATE 5 MG TAB PO SCH (08:32)
[2017-03-18] MEDS: SODIUM CHLORIDE 0.9% FLUSH 10 ML FLUSH IV FLUSH SCH ×2 (08:33→20:30)
--- NOTE | 2017-03-18 08:46 | HHI.PR ---
Subjective Remarks Feels improving. She has less sob. Feels weak, however was able to ambulate. She has pain at the tube site controlled by meds. No n/v/d/c. Says she is eating well. K was noted low yesterday replaces. Patient denies fever or chills. Dressing waas changes and no much drainage . Chest tube drain with maliha output ~700s Objective Vitals Vital Signs Date Time Temp Pulse Resp B/P Pulse Ox O2 Delivery O2 Flow Rate FiO2 03/18/17 04:00 99.0 64 15 105/58 94 03/18/17 00:00 97.5 67 15 96/59 93 03/17/17 22:16 66 03/17/17 20:00 99.1 68 15 124/64 92 03/17/17 15:50 98.5 68 20 105/57 95 03/17/17 11:50 97.2 68 20 96/55 90 I/O 03/17/17 03/17/17 03/17/17 03/18/17 03/18/17 03/18/17 07:00 15:00 23:00 07:00 15:00 23:00 Intake Total 900 ml 240 ml 480 ml Output Total 230 ml 490 ml Balance 670 ml 240 ml -10 ml Intake Oral 900 ml 240 ml 480 ml Chest Tube Drainage Total 230 ml 490 ml # Voids 2 1 # Bowel Movements 0 Result Diagram: 03/17/17 0710 03/17/17 0710 Imaging Last Impressions Chest X-Ray 03/18/17 0600 Signed Impressions: Service Date/Time: Saturday, March 18, 2017 04:18 - CONCLUSION: Stable tiny right 5 mm apical pneumothorax. Puma Pierre MD CT Angiography 03/16/17 1156 Signed Impressions: Service Date/Time: Thursday, March 16, 2017 13:05 - CONCLUSION: Large right hemithorax needle thoracentesis Either biliary air or or portal air. CT scan of the abdomen and pelvis is suggested in this patient who has had previous Whipple. Mihai Harper MD FACR Objective Remarks GENERAL: This is a very pleasant 67-year-old female, well-nourished, well- developed patient, sitting up in the bed soft speech with some shortness of breath. SKIN: No rashes, ecchymoses or lesions. Cool and dry. HEAD: Atraumatic. Normocephalic. No temporal or scalp tenderness. EYES: Pupils equal round and reactive. Extraocular motions intact. No scleral icterus. No injection or drainage. ENT: Nose without bleeding, purulent drainage or septal hematoma. Throat without erythema, tonsillar hypertrophy or exudate. Uvula midline. Airway patent. NECK: Trachea midline. No JVD or lymphadenopathy. Supple, nontender, no meningeal signs. CARDIOVASCULAR: Regular rate and rhythm without murmurs, gallops, or rubs. RESPIRATORY: Decreased breaths sounds right lower lung field, improving . Chest tube in place. Dressing with minimal serosanguinous discharge. No wheezing. GASTROINTESTINAL: Abdomen soft, non-tender, nondistended. No hepato-splenomegaly , or palpable masses. No guarding. MUSCULOSKELETAL: Extremities without clubbing, cyanosis. Trace lower extremity edema. No joint tenderness, effusion, or edema noted. No calf tenderness. Negative Homans sign bilaterally. NEUROLOGICAL: Awake and alert. Cranial nerves II through XII intact. Motor and sensory grossly within normal limits. Five out of 5 muscle strength in all muscle groups. Normal speech. A/P Assessment and Plan Very pleasant 67-year-old female with: Shortness of breath and moderate large right pleural effusion, likely malignant. Chest tube placed 03/16 Dr Coello CTS. Small Pneumothorax 5% Pancreatic cancer with metastasis to the lung, liver, stomach, Whipple procedure [address] Reynolds oncology recently restarted chemo CT Chest reviewed findings discussed with ER PA, patient. Consult Dr. Reynolds her oncology doctor. He recommends cardiothoracic surgeon for evaluation. S/P Right chest tube insertion by Dr Coello CTS on 03/16/17. Improving CXR 03/17 reviewed and discussed with the patient Small 5 mm right apical pneumothorax. Patient is satting well on nasal canula. Oxygen supplied by nasal cannula, keep oxygen saturation more than 92%. She is saturating well on 2 L nasal cannula at this time. Monitor closely. Pain medications per pain scale PO and also Dilaudid for breakthrough pain. Patient is allergic to morphine. Continue Creon HTN. Restart amlodipine. Currently blood pressure is controlled at this time. Monitor blood pressure and adjust medications as needed. DVT prophylaxis SCD/teds. Hold on chemical prophylaxis at this time due to chest tube, restart as indicated by CTS Discussed with the patient, nurse, family at bedside Mariluz Julian MD March 18, 2017 08:46 Mariluz Julian MD March 18, 2017 08:46
[2017-03-18 09:33] LABS: AUTOMATED NEUTROPHIL # 6.3 TH/MM3 (1.8-7.7); BASOPHIL # 0.1 TH/MM3 (0-0.2); BASOPHIL % 0.8 % (0.0-2.0); EOSINOPHIL # 0.2 TH/MM3 (0-0.4); EOSINOPHIL % 2.4 % (0.0-4.0); HEMATOCRIT 33.6 % (35.0-46.0); HEMO FLAGS DIFF FINAL; LYMPH % 10.1 % (9.0-44.0); LYMPHOCYTE # 0.8 TH/MM3 (1.0-4.8); MEAN CELL VOLUME 94.2 FL (80.0-100.0); MEAN CORPUSCULAR HEMOGLOBIN 31.6 PG (27.0-34.0); MEAN CORPUSCULAR HGB CONC 33.5 % (32.0-36.0); MONO % 8.6 % (0.0-8.0); NEUT % 78.1 % (16.0-70.0); PLATELET COUNT 656 TH/MM3 (150-450); RED BLOOD COUNT 3.57 MIL/MM3 (4.00-5.30); RED CELL DISTRIBUTION WIDTH 15.7 % (11.6-17.2)
[2017-03-18 09:55] LABS: BICARBONATE 31.4 MEQ/L (21.0-32.0); MAGNESIUM 2.1 MG/DL (1.5-2.5); POTASSIUM 3.6 MEQ/L (3.5-5.1)
--- NOTE | 2017-03-18 10:24 | PD.ONC.PN ---
Subjective Subjective Remarks doing well, chest tube drainage more then 700 cc per 24 hours. Objective Data Date Time Temp Pulse Resp B/P Pulse Ox O2 Delivery O2 Flow Rate FiO2 03/18/17 07:50 99.1 75 20 110/75 92 03/18/17 04:00 99.0 64 15 105/58 94 03/18/17 00:00 97.5 67 15 96/59 93 03/17/17 22:16 66 03/17/17 20:00 99.1 68 15 124/64 92 03/17/17 15:50 98.5 68 20 105/57 95 03/17/17 11:50 97.2 68 20 96/55 90 03/18/17 03/18/17 03/18/17 07:00 15:00 23:00 Intake Total 480 ml Output Total 490 ml Balance -10 ml Result Diagram: 03/18/17 0916 03/18/1716 Laboratory Results Laboratory Tests Test 03/18/17 09:16 White Blood Count 8.0 TH/MM3 Red Blood Count 3.57 MIL/MM3 Hemoglobin 11.3 GM/DL Hematocrit 33.6 % Mean Corpuscular Volume 94.2 FL Mean Corpuscular Hemoglobin 31.6 PG Mean Corpuscular Hemoglobin 33.5 % Concent Red Cell Distribution Width 15.7 % Platelet Count 656 TH/MM3 Mean Platelet Volume 7.0 FL Neutrophils (%) (Auto) 78.1 % Lymphocytes (%) (Auto) 10.1 % Monocytes (%) (Auto) 8.6 % Eosinophils (%) (Auto) 2.4 % Basophils (%) (Auto) 0.8 % Neutrophils # (Auto) 6.3 TH/MM3 Lymphocytes # (Auto) 0.8 TH/MM3 Monocytes # (Auto) 0.7 TH/MM3 Eosinophils # (Auto) 0.2 TH/MM3 Basophils # (Auto) 0.1 TH/MM3 CBC Comment DIFF FINAL Differential Comment Sodium Level 139 MEQ/L Potassium Level 3.6 MEQ/L Chloride Level 100 MEQ/L Carbon Dioxide Level 31.4 MEQ/L Anion Gap 8 MEQ/L Blood Urea Nitrogen 14 MG/DL Creatinine 0.60 MG/DL Estimat Glomerular Filtration 100 ML/MIN Rate Random Glucose 175 MG/DL Calcium Level 7.9 MG/DL Phosphorus Level 2.8 MG/DL Magnesium Level 2.1 MG/DL Imaging Studies Last 24 hours Impressions Chest X-Ray 03/18/17 0600 Signed Impressions: Service Date/Time: Saturday, March 18, 2017 04:18 - CONCLUSION: Stable tiny right 5 mm apical pneumothorax. Puma Pierre MD Administered Medications Medications (Trade) Dose Ordered Sig/Jaziel Route PRN Reason Start Time Stop Time Status Last Admin Dose Admin Sodium Chloride (NS Flush) 2 ml BID IV FLUSH 03/16/17 21:00 03/18/17 08:33 Docusate Sodium (Colace) 100 mg Q12H PO 03/16/17 14:30 03/18/17 04:17 Amlodipine Besylate (Norvasc) 5 mg DAILY PO 03/17/17 09:00 03/18/17 08:32 Bupropion HCl (Wellbutrin Sr 12 Hr) 200 mg DAILY PO 03/17/17 09:00 03/18/17 08:32 Amylase/Lipase/ Protease (Creon 24-76-120) 1 cap TIDPC PO 03/16/17 18:30 03/18/17 08:32 Acetaminophen/ Hydrocodone Bitart (Cochran 5-325 Mg) 1 tab Q4H PRN PO PAIN SCALE 3 TO 5 03/16/17 14:45 03/18/17 07:23 Acetaminophen/ Hydrocodone Bitart (Cochran 10-325 Mg) 1 tab Q4H PRN PO PAIN SCALE 6 TO 10 03/16/17 14:45 03/17/17 18:29 Hydromorphone HCl (Dilaudid Pf Inj) 0.5 mg Q3H PRN IV BREAKTHROUGH PAIN 03/16/17 14:45 03/17/17 17:25 Objective Remarks GENERAL: Well-nourished, well-developed patient. SKIN: Warm and dry. HEAD: Normocephalic. EYES: No scleral icterus. No injection or drainage. NECK: Supple, trachea midline. No JVD or lymphadenopathy. LYMPHATIC: No adenopathy. CARDIOVASCULAR: Regular rate and rhythm without murmurs. RESPIRATORY: Breath sounds slightly decreased right base. GASTROINTESTINAL: Abdomen soft, non-tender, nondistended. EXTREMITIES: No cyanosis, or edema. MUSCULOSKELETAL: Adequate muscle tone. NEUROLOGICAL: No obvious focal deficit. Awake, alert, and oriented x3. PSYCHIATRIC: Appropriate mood and affect; insight and judgment normal. Assessment/Plan Assessment M1: I spoke with her about the need to wait until the chest tube drainage is less before proceeding with talc and then removal of tube. explained that talc instillation can be painful and on occasion cause a pneumonitis and should be completed in hospital. She is agreeable. Discussed with Dr Yadav and all parties in agreement. I will be away tomorrow and she can be discharged after pleurodesis and I will resume chemotherapy as outpatient. Will begin lovenex. Flaco Reynolds MD March 18, 2017 10:24
--- NOTE | 2017-03-18 10:58 | PD.CAR.PN ---
CVT Progress Note Subjective/Hospital Course: Doing well. Some fluid leaking around tube saturating the dressing. 03/18/17 Drained > 700 ml over 24 hrs. Doing well, no complaints Objective: Vital Signs Date Time Temp Pulse Resp B/P Pulse Ox O2 Delivery O2 Flow Rate FiO2 03/18/17 07:50 99.1 75 20 110/75 92 03/18/17 04:00 99.0 64 15 105/58 94 03/18/17 00:00 97.5 67 15 96/59 93 03/17/17 22:16 66 03/17/17 20:00 99.1 68 15 124/64 92 03/17/17 15:50 98.5 68 20 105/57 95 03/17/17 11:50 97.2 68 20 96/55 90 Labs: Laboratory Tests Test 03/18/17 09:16 White Blood Count 8.0 TH/MM3 (4.0-11.0) Red Blood Count 3.57 MIL/MM3 (4.00-5.30) Hemoglobin 11.3 GM/DL (11.6-15.3) Hematocrit 33.6 % (35.0-46.0) Mean Corpuscular Volume 94.2 FL (80.0-100.0) Mean Corpuscular Hemoglobin 31.6 PG (27.0-34.0) Mean Corpuscular Hemoglobin 33.5 % Concent (32.0-36.0) Red Cell Distribution Width 15.7 % (11.6-17.2) Platelet Count 656 TH/MM3 (150-450) Mean Platelet Volume 7.0 FL (7.0-11.0) Neutrophils (%) (Auto) 78.1 % (16.0-70.0) Lymphocytes (%) (Auto) 10.1 % (9.0-44.0) Monocytes (%) (Auto) 8.6 % (0.0-8.0) Eosinophils (%) (Auto) 2.4 % (0.0-4.0) Basophils (%) (Auto) 0.8 % (0.0-2.0) Neutrophils # (Auto) 6.3 TH/MM3 (1.8-7.7) Lymphocytes # (Auto) 0.8 TH/MM3 (1.0-4.8) Monocytes # (Auto) 0.7 TH/MM3 (0-0.9) Eosinophils # (Auto) 0.2 TH/MM3 (0-0.4) Basophils # (Auto) 0.1 TH/MM3 (0-0.2) CBC Comment DIFF FINAL Differential Comment Sodium Level 139 MEQ/L (136-145) Potassium Level 3.6 MEQ/L (3.5-5.1) Chloride Level 100 MEQ/L (98-107) Carbon Dioxide Level 31.4 MEQ/L (21.0-32.0) Anion Gap 8 MEQ/L (5-15) Blood Urea Nitrogen 14 MG/DL (7-18) Creatinine 0.60 MG/DL (0.50-1.00) Estimat Glomerular Filtration 100 ML/MIN Rate (>89) Random Glucose 175 MG/DL (74-106) Calcium Level 7.9 MG/DL (8.5-10.1) Phosphorus Level 2.8 MG/DL (2.5-4.9) Magnesium Level 2.1 MG/DL (1.5-2.5) Result Diagram: 03/18/1791503/18/17915 Imaging: Last 24 hours Impressions Chest X-Ray 03/18/17 0600 Signed Impressions: Service Date/Time: Saturday, March 18, 2017 04:18 - CONCLUSION: Stable tiny right 5 mm apical pneumothorax. Puma Pierre MD Cardiovascular: RRR Pulmonary: Few crackles at right base GI/: NABS, NT CT: 720 ml/24 hrs, no air leak Plan: Talc pleuradesis when drainage decreases to <150ml/24 hrs Chest tube to water seal Cytology pending Emily Yadav MD March 18, 2017 10:58
[2017-03-18] MEDS: ENOXAPARIN SODIUM 40 MG/0.4 ML SYRINGE SQ SCH (11:32)
[2017-03-19] VITALS (8 sets, daily range): BP systolic 95–129; BP diastolic 52–69; PULSE 73–85; RESP 17–20; TEMP 98.2–100.3; O2SAT 91–93
[2017-03-19] MEDS: DOCUSATE SODIUM 100 MG CAP PO SCH ×3 (02:30→22:23)
[2017-03-19] MEDS: buPROPion HCL 100 MG SUSTAINED RELEASE TAB PO SCH (09:06)
[2017-03-19] MEDS: SODIUM CHLORIDE 0.9% FLUSH 10 ML FLUSH IV FLUSH SCH ×2 (09:06→21:00)
[2017-03-19] MEDS: amLODIPine BESYLATE 5 MG TAB PO SCH (09:06)
[2017-03-19] MEDS: LIPASE/PROTEASE/AMYLASE (24,000/76,000/120,000) CAP PO SCH ×4 (09:06→17:45)
[2017-03-19] MEDS: ACETAMINOPHEN/HYDROcodone 325 MG/10 MG TAB PO PRN (09:09)
--- NOTE | 2017-03-19 09:31 | HHI.PR ---
Subjective Remarks Complaints of more pain today . Says she did skip taking meds last night. Patient says oxycodone works better for pain than norco, will switch . Also with low grade fevers 100.2 last night and 100.3 tiday morning, Give tylenol for fever. Less OP fron the chest tube ~ 200. Tube on off suction. Some serosanguinous discharge at the tube site. Poss pleurodesis soon. No n/v/d/c. Says she is eating well. Objective Vitals Vital Signs Date Time Temp Pulse Resp B/P Pulse Ox O2 Delivery O2 Flow Rate FiO2 03/19/17 08:03 100.3 82 20 123/66 93 03/19/17 04:00 100.2 82 18 129/69 92 03/19/17 00:00 99.5 77 17 111/61 92 03/18/17 20:25 99.7 03/18/17 20:00 78 03/18/17 20:00 100.7 80 17 114/59 92 03/18/17 16:54 74 03/18/17 15:50 99.0 78 20 104/55 92 03/18/17 11:50 99.7 78 20 107/59 93 I/O 03/18/17 03/18/17 03/18/17 03/19/17 03/19/17 03/19/17 07:00 15:00 23:00 07:00 15:00 23:00 Intake Total 480 ml 600 ml 240 ml 240 ml Output Total 490 ml 120 ml 110 ml Balance -10 ml 600 ml 120 ml 130 ml Intake Oral 480 ml 600 ml 240 ml 240 ml Chest Tube Drainage Total 490 ml 120 ml 110 ml # Voids 1 2 3 2 # Bowel Movements 0 0 0 Result Diagram: 03/18/17 0916 03/18/17 0916 Imaging Last Impressions Chest X-Ray 03/18/17 0600 Signed Impressions: Service Date/Time: Saturday, March 18, 2017 04:18 - CONCLUSION: Stable tiny right 5 mm apical pneumothorax. Puma Pierre MD CT Angiography 03/16/17 1156 Signed Impressions: Service Date/Time: Thursday, March 16, 2017 13:05 - CONCLUSION: Large right hemithorax needle thoracentesis Either biliary air or or portal air. CT scan of the abdomen and pelvis is suggested in this patient who has had previous Whipple. Mihai Harper MD FACR Objective Remarks GENERAL: This is a very pleasant 67-year-old female, well-nourished, well- developed patient, sitting up in the bed soft speech with some shortness of breath. SKIN: No rashes, ecchymoses or lesions. Cool and dry. HEAD: Atraumatic. Normocephalic. No temporal or scalp tenderness. EYES: Pupils equal round and reactive. Extraocular motions intact. No scleral icterus. No injection or drainage. ENT: Nose without bleeding, purulent drainage or septal hematoma. Throat without erythema, tonsillar hypertrophy or exudate. Uvula midline. Airway patent. NECK: Trachea midline. No JVD or lymphadenopathy. Supple, nontender, no meningeal signs. CARDIOVASCULAR: Regular rate and rhythm without murmurs, gallops, or rubs. RESPIRATORY: Decreased breaths sounds right lower lung field, improving . Chest tube in place. Dressing with minimal serosanguinous discharge. No wheezing. GASTROINTESTINAL: Abdomen soft, non-tender, nondistended. No hepato-splenomegaly , or palpable masses. No guarding. MUSCULOSKELETAL: Extremities without clubbing, cyanosis. Trace lower extremity edema. No joint tenderness, effusion, or edema noted. No calf tenderness. Negative Homans sign bilaterally. NEUROLOGICAL: Awake and alert. Cranial nerves II through XII intact. Motor and sensory grossly within normal limits. Five out of 5 muscle strength in all muscle groups. Normal speech. A/P Assessment and Plan Very pleasant 67-year-old female with: Shortness of breath and moderate large right pleural effusion, likely malignant. Chest tube placed 03/16 Dr Coello CTS. Small Pneumothorax 5% Pancreatic cancer with metastasis to the lung, liver, stomach, Whipple procedure [address] Reynolds oncology recently restarted chemo CT Chest reviewed findings discussed with ER PA, patient. Consult Dr. Reynolds her oncology doctor. He recommends cardiothoracic surgeon for evaluation. S/P Right chest tube insertion by Dr Oumou MENESES on 03/16/17. Improving Plan for pleurodesis per CTS. CXR 03/17 reviewed and discussed with the patient Small 5 mm right apical pneumothorax. Patient is satting well on nasal canula. Oxygen supplied by nasal cannula, keep oxygen saturation more than 92%. She is saturating well on 2 L nasal cannula at this time. Monitor closely. Pain medications per pain scale PO and also Dilaudid for breakthrough pain increased as patient with more pain. Change norco ro oxycodone as works better per patient. Patient is allergic to morphine. Continue Creon HTN. Restart amlodipine. Currently blood pressure is controlled at this time. Monitor blood pressure and adjust medications as needed. DVT prophylaxis SCD/teds. Hold on chemical prophylaxis at this time due to chest tube, restart as indicated by CTS Discussed with the patient, nurse Discharge Planning pending improvement and clearance form consultants. Plan for pleurodesis. Mariluz Julian MD March 19, 2017 09:31
[2017-03-19] MEDS: ENOXAPARIN SODIUM 40 MG/0.4 ML SYRINGE SQ SCH (11:19)
--- NOTE | 2017-03-19 15:23 | PD.CAR.PN ---
CVT Progress Note Subjective/Hospital Course: Doing well. Some fluid leaking around tube saturating the dressing. 03/18/17 Drained > 700 ml over 24 hrs. Doing well, no complaints 03/19 pain controlled, drained 110cc/ 12 hrs chest tube to suction, will plan on talc pleurodesis in am at bedside Objective: GENERAL: SKIN: Warm and dry. chest tube right upper chest wall HEAD: Normocephalic. EYES: No scleral icterus. No injection or drainage. NECK: Supple, trachea midline. No JVD or lymphadenopathy. CARDIOVASCULAR: Regular rate and rhythm without murmurs, gallops, or rubs. RESPIRATORY: some coarse bilateral breath sounds chest tube to wall suction , no air leak Breath sounds equal bilaterally. No accessory muscle use. GASTROINTESTINAL: Abdomen soft, non-tender, nondistended. MUSCULOSKELETAL: No cyanosis, or edema. BACK: Nontender without obvious deformity. No CVA tenderness. Vital Signs Date Time Temp Pulse Resp B/P Pulse Ox O2 Delivery O2 Flow Rate FiO2 03/19/17 12:00 98.2 73 20 102/57 93 03/19/17 08:51 82 03/19/17 08:03 100.3 82 20 123/66 93 03/19/17 04:00 100.2 82 18 129/69 92 03/19/17 00:00 99.5 77 17 111/61 92 03/18/17 20:25 99.7 03/18/17 20:00 78 03/18/17 20:00 100.7 80 17 114/59 92 03/18/17 16:54 74 03/18/17 15:50 99.0 78 20 104/55 92 Result Diagram: 03/18/17 0916 03/18/17 0916 Telemetry: NSR (1) 2) Pleural effusion on right/ s/p chest tube placement Plan: eval for talc pleurodesis in am Karime Herrera March 19, 2017 15:23
[2017-03-20] VITALS (12 sets, daily range): BP systolic 98–134; BP diastolic 52–69; PULSE 74–100; RESP 17–20; TEMP 98.7–102.5; O2SAT 90–97
--- NOTE | 2017-03-20 06:41 | RADRPT ---
EXAM DATE/TIME: 03/20/2017 05:44 [facility] COMPARISON: CHEST SINGLE AP, March 18, 2017, 4:18. INDICATIONS : Short of breath, coughing, pleural effusion. Followup tiny right apical pneumothorax. MEDICAL HISTORY : carcinoma pancreas SURGICAL HISTORY : whipple procedure, chest tube ENCOUNTER: Subsequent ACUITY: 4 - 6 days PAIN SCORE: 3/10 LOCATION: Bilateral chest FINDINGS: A single AP portable erect view of the chest was obtained and again demonstrates the right-sided ches t tube in place. There is a small right apical pneumothorax again noted appear slightly more prominen t and now measures up to 1.4 cm. The right-sided central venous catheter remains in place. There is s treaky opacity at both lung bases with mild blunting of the costophrenic angles. The heart size is at the upper limits of normal. CONCLUSION: 1. Small right apical pneumothorax which is mildly increased in size. 2. The right-sided chest tube remains in place. 3. Streaky opacity at lung bases with apparent mild effusions. Ritchie Garcia MD on March 20, 2017 at 6:38 Board Certified Radiologist. This report was verified electronically.
[2017-03-20 06:44] LABS: AUTOMATED NEUTROPHIL # 5.5 TH/MM3 (1.8-7.7); BASOPHIL # 0.1 TH/MM3 (0-0.2); EOSINOPHIL # 0.2 TH/MM3 (0-0.4); EOSINOPHIL % 2.8 % (0.0-4.0); HEMATOCRIT 32.1 % (35.0-46.0); HEMO FLAGS DIFF FINAL; LYMPH % 14.6 % (9.0-44.0); LYMPHOCYTE # 1.2 TH/MM3 (1.0-4.8); MEAN CELL VOLUME 93.8 FL (80.0-100.0); MEAN CORPUSCULAR HEMOGLOBIN 31.6 PG (27.0-34.0); MEAN CORPUSCULAR HGB CONC 33.7 % (32.0-36.0); MONO % 13.5 % (0.0-8.0); NEUT % 68.1 % (16.0-70.0); PLATELET COUNT 637 TH/MM3 (150-450); RED BLOOD COUNT 3.43 MIL/MM3 (4.00-5.30); RED CELL DISTRIBUTION WIDTH 14.8 % (11.6-17.2)
--- NOTE | 2017-03-20 07:52 | HHI.PR ---
Subjective Remarks In bed since she had more bleeding overnight. Feel short of breath, but improved since yesterday. Says chest tube is draining especially where she is standing up. Denies fever or chills. No wheezing. Plan for pleurodesis Objective Vitals Vital Signs Date Time Temp Pulse Resp B/P Pulse Ox O2 Delivery O2 Flow Rate FiO2 03/20/17 04:00 99.9 78 17 115/58 90 03/20/17 00:00 99.0 80 17 110/56 95 03/19/17 20:49 93 Nasal Cannula 2.00 03/19/17 20:00 75 03/19/17 20:00 99.9 85 17 95/52 91 03/19/17 16:35 99.8 79 20 106/55 91 03/19/17 12:00 98.2 73 20 102/57 93 03/19/17 08:51 82 03/19/17 08:03 100.3 82 20 123/66 93 I/O 03/19/17 03/19/17 03/19/17 03/20/17 03/20/17 03/20/17 07:00 15:00 23:00 07:00 15:00 23:00 Intake Total 240 ml 480 ml 480 ml Output Total 110 ml 160 ml 60 ml Balance 130 ml 480 ml -160 ml 480 ml -60 ml Intake Oral 240 ml 480 ml 480 ml Chest Tube Drainage Total 110 ml 160 ml 60 ml # Voids 2 3 4 # Bowel Movements 0 2 Result Diagram: 03/20/17 0545 03/18/17 0916 Imaging Last Impressions Chest X-Ray 03/20/17 0600 Signed Impressions: Service Date/Time: Monday, March 20, 2017 05:44 - CONCLUSION: 1. Small right apical pneumothorax which is mildly increased in size. 2. The right-sided chest tube remains in place. 3. Streaky opacity at lung bases with apparent mild effusions. Ritchie Garcia MD CT Angiography 03/16/17 1156 Signed Impressions: Service Date/Time: Thursday, March 16, 2017 13:05 - CONCLUSION: Large right hemithorax needle thoracentesis Either biliary air or or portal air. CT scan of the abdomen and pelvis is suggested in this patient who has had previous Whipple. Mihai Harper MD FACR Objective Remarks GENERAL: This is a very pleasant 67-year-old female, well-nourished, well- developed patient, sitting up in the bed soft speech with some shortness of breath. SKIN: No rashes, ecchymoses or lesions. Cool and dry. HEAD: Atraumatic. Normocephalic. No temporal or scalp tenderness. EYES: Pupils equal round and reactive. Extraocular motions intact. No scleral icterus. No injection or drainage. ENT: Nose without bleeding, purulent drainage or septal hematoma. Throat without erythema, tonsillar hypertrophy or exudate. Uvula midline. Airway patent. NECK: Trachea midline. No JVD or lymphadenopathy. Supple, nontender, no meningeal signs. CARDIOVASCULAR: Regular rate and rhythm without murmurs, gallops, or rubs. RESPIRATORY: Decreased breaths sounds right lower lung field, improving . Chest tube in place. Dressing with minimal serosanguinous discharge. No wheezing. GASTROINTESTINAL: Abdomen soft, non-tender, nondistended. No hepato-splenomegaly , or palpable masses. No guarding. MUSCULOSKELETAL: Extremities without clubbing, cyanosis. Trace lower extremity edema. No joint tenderness, effusion, or edema noted. No calf tenderness. Negative Homans sign bilaterally. NEUROLOGICAL: Awake and alert. Cranial nerves II through XII intact. Motor and sensory grossly within normal limits. Five out of 5 muscle strength in all muscle groups. Normal speech. A/P Assessment and Plan Very pleasant 67-year-old female with: Shortness of breath and moderate large right pleural effusion, likely malignant. Chest tube placed 03/16 Dr Coello CTS. Small Pneumothorax 5% Pancreatic cancer with metastasis to the lung, liver, stomach, Whipple procedure [address] Reynolds oncology recently restarted chemo CT Chest reviewed findings discussed with ER PA, patient. Consult Dr. Reynolds her oncology doctor. He recommends cardiothoracic surgeon for evaluation. S/P Right chest tube insertion by Dr Coello CTS on 03/16/17. Improving. Plan for pleurodesis per CTS 03/20/17 CXR 03/17 reviewed and discussed with the patient Small 5 mm right apical pneumothorax. Patient is satting well on nasal canula. Oxygen supplied by nasal cannula, keep oxygen saturation more than 92%. She is saturating well on 2 L nasal cannula at this time. Monitor closely. Pain medications per pain scale PO and also Dilaudid for breakthrough pain increased as patient with more pain. Change norco ro oxycodone as works better per patient. Patient is allergic to morphine. Continue Creon HTN. Restart amlodipine. Currently blood pressure is controlled at this time. Monitor blood pressure and adjust medications as needed. DVT prophylaxis SCD/teds. Hold on chemical prophylaxis at this time due to chest tube, restart as indicated by CTS Discussed with the patient, nurse Discharge plan Pending improvement. Patient will have pleurodesis today. Discharge when improved and cleared by consultants. Possible tomorrow Discharge Planning pending improvement and clearance form consultants. Plan for pleurodesis. Mariluz Julian MD March 20, 2017 07:52
[2017-03-20 07:53] LABS: BICARBONATE 31.1 MEQ/L (21.0-32.0); MAGNESIUM 2.1 MG/DL (1.5-2.5); POTASSIUM 3.9 MEQ/L (3.5-5.1)
--- NOTE | 2017-03-20 09:23 | PD.ONC.PN ---
Subjective Subjective Remarks Tmax 99.9 overnight. Pt resting in bed in no distress. She is somewhat anxious about her pleurodesis today. C/o pain around chest tube insertion site. SOB improving. Objective Data Date Time Temp Pulse Resp B/P Pulse Ox O2 Delivery O2 Flow Rate FiO2 03/20/17 08:00 99.3 74 20 113/59 97 03/20/17 07:40 Nasal Cannula 2.00 03/20/17 04:00 99.9 78 17 115/58 90 03/20/17 00:00 99.0 80 17 110/56 95 03/19/17 20:49 93 Nasal Cannula 2.00 03/19/17 20:00 75 03/19/17 20:00 99.9 85 17 95/52 91 03/19/17 16:35 99.8 79 20 106/55 91 03/19/17 12:00 98.2 73 20 102/57 93 03/20/17 03/20/17 03/20/17 07:00 15:00 23:00 Intake Total 480 ml Output Total 60 ml Balance 480 ml -60 ml Result Diagram: 03/20/17 0545 03/20/17 0545 Laboratory Results Laboratory Tests Test 03/20/17 05:45 White Blood Count 8.0 TH/MM3 Red Blood Count 3.43 MIL/MM3 Hemoglobin 10.8 GM/DL Hematocrit 32.1 % Mean Corpuscular Volume 93.8 FL Mean Corpuscular Hemoglobin 31.6 PG Mean Corpuscular Hemoglobin 33.7 % Concent Red Cell Distribution Width 14.8 % Platelet Count 637 TH/MM3 Mean Platelet Volume 7.5 FL Neutrophils (%) (Auto) 68.1 % Lymphocytes (%) (Auto) 14.6 % Monocytes (%) (Auto) 13.5 % Eosinophils (%) (Auto) 2.8 % Basophils (%) (Auto) 1.0 % Neutrophils # (Auto) 5.5 TH/MM3 Lymphocytes # (Auto) 1.2 TH/MM3 Monocytes # (Auto) 1.1 TH/MM3 Eosinophils # (Auto) 0.2 TH/MM3 Basophils # (Auto) 0.1 TH/MM3 CBC Comment DIFF FINAL Differential Comment Sodium Level 141 MEQ/L Potassium Level 3.9 MEQ/L Chloride Level 102 MEQ/L Carbon Dioxide Level 31.1 MEQ/L Anion Gap 8 MEQ/L Blood Urea Nitrogen 14 MG/DL Creatinine 0.50 MG/DL Estimat Glomerular Filtration 123 ML/MIN Rate Random Glucose 101 MG/DL Calcium Level 7.8 MG/DL Magnesium Level 2.1 MG/DL Imaging Studies Last 24 hours Impressions Chest X-Ray 03/20/17 0600 Signed Impressions: Service Date/Time: Monday, March 20, 2017 05:44 - CONCLUSION: 1. Small right apical pneumothorax which is mildly increased in size. 2. The right-sided chest tube remains in place. 3. Streaky opacity at lung bases with apparent mild effusions. Ritchie Garcia MD Administered Medications Medications (Trade) Dose Ordered Sig/Jaziel Route PRN Reason Start Time Stop Time Status Last Admin Dose Admin Sodium Chloride (NS Flush) 2 ml BID IV FLUSH 03/16/17 21:00 03/19/17 21:00 Docusate Sodium (Colace) 100 mg Q12H PO 03/16/17 14:30 03/19/17 13:50 Amlodipine Besylate (Norvasc) 5 mg DAILY PO 03/17/17 09:00 03/19/17 09:06 Bupropion HCl (Wellbutrin Sr 12 Hr) 200 mg DAILY PO 03/17/17 09:00 03/19/17 09:06 Enoxaparin Sodium (Lovenox Inj) 40 mg Q24H SQ 03/18/17 11:00 03/19/17 11:19 Oxycodone HCl (Roxicodone) 10 mg Q4H PRN PO PAIN SCALE 6 TO 10 03/19/17 09:30 03/20/17 05:39 Oxycodone HCl (Roxicodone) 5 mg Q4H PRN PO PAIN SCALE 3 TO 5 03/19/17 09:30 03/19/17 22:16 Amylase/Lipase/ Protease (Creon 24-76-120) 4 cap TIDPC PO 03/19/17 13:30 03/19/17 17:45 Objective Remarks GENERAL: Older female, sitting up in bed in no distress. SKIN: Warm and dry. HEAD: Normocephalic. EYES: No injection or drainage. NECK: Supple, trachea midline. CARDIOVASCULAR: +S1/S2. No murmur. RESPIRATORY: Lungs clear posteriorly. Chest tube in place, R chest. GASTROINTESTINAL: Abdomen soft, non-tender, nondistended. EXTREMITIES: No cyanosis, or edema. NEUROLOGICAL: Normal speech. Moving all extremities. Assessment/Plan Assessment 67 y/o female with history of pancreatic cancer admitted with SOB and pleural effusion. Plan 1. Plan for pleurodesis today. 2. Cytology from pleural effusion remains pending. 3. We will see how she does after pleurodesis and then plan to start cycle #2 of Abraxane and gemcitabine on an outpatient setting. Attending Statement The exam, history, and the medical decision-making described in the above note were completed with the assistance of the mid-level provider. I reviewed and agree with the findings presented. I attest that I had a [id number] encounter with the patient on the same day, and personally performed and documented my assessment and findings in the medical record. doing well and tolerated pleurodesis with not unexpected transient fever; Hopefully tube can be removed tomorrow and she can be discharged. will plan on next cycle of chemotherapy next Sunday as she will require a week to recover. appreciate all the help. Lesa Maloney March 20, 2017 09:23 Flaco Reynolds MD March 20, 2017 22:27
[2017-03-20] MEDS: amLODIPine BESYLATE 5 MG TAB PO SCH (10:03)
[2017-03-20] MEDS: LIPASE/PROTEASE/AMYLASE (24,000/76,000/120,000) CAP PO SCH ×3 (10:03→18:30)
[2017-03-20] MEDS: buPROPion HCL 100 MG SUSTAINED RELEASE TAB PO SCH (10:03)
[2017-03-20] MEDS: ENOXAPARIN SODIUM 40 MG/0.4 ML SYRINGE SQ SCH (10:08)
[2017-03-20] MEDS: SODIUM CHLORIDE 0.9% FLUSH 10 ML FLUSH IV FLUSH SCH ×2 (10:08→23:10)
[2017-03-20] MEDS: HYDROmorphone HCL PF 1 MG/ML VIAL IV PRN (10:42)
--- NOTE | 2017-03-20 11:19 | PD.OP ---
cc: Emily Yadav MD; Flaco Reynolds MD Operative Report Date of Surgery: March 20, 2017 Preoperative Diagnosis: (1) Pancreatic cancer (2) Pleural effusion on right Postoperative Diagnosis: same Procedure: Talc pleuradesis Anesthesia: Local Surgeon: Emily Yadav Associate Product Manager(s): Jodi DE LEÓN Operation and Findings: After informed consent was obtained, 10 gms of sterile talc was mixed with 200 ml sterile NS and 20 ml 2% lidocaine to form a slurry. This mixture was then aseptically infused through the right chest tube. The chest tube was clamped and orders left for position changes over 2 hours. The tube will then be unclamped and placed to 20 cm suction. The patient tolerated the procedure well. Emily Yadav MD March 20, 2017 11:19
[2017-03-20] MEDS: DOCUSATE SODIUM 100 MG CAP PO SCH (14:29)
[2017-03-20] MEDS: ACETAMINOPHEN 325 MG TAB PO PRN (17:47)
[2017-03-21] VITALS (9 sets, daily range): BP systolic 89–111; BP diastolic 50–59; PULSE 77–102; RESP 17–21; TEMP 98.8–100.3; O2SAT 91–94
[2017-03-21] MEDS: DOCUSATE SODIUM 100 MG CAP PO SCH ×2 (02:30→12:51)
--- NOTE | 2017-03-21 07:32 | RADRPT ---
EXAM DATE/TIME: 03/21/2017 06:50 [facility] COMPARISON: CHEST SINGLE AP, March 20, 2017, 5:44. INDICATIONS : Pleurodesis follow-up. MEDICAL HISTORY : Carcinoma, pancreas. SURGICAL HISTORY : Chest tube, right. Whipple. ENCOUNTER: Subsequent ACUITY: 1 week PAIN SCORE: 3/10 LOCATION: Right chest FINDINGS: A single view of the chest demonstrates right-sided chest tube and bibasilar densities. Right-sided p neumothorax is slightly larger measuring 2 cm pleural separation. Spxhja-x-[id number] catheter again seen a nd unchanged.. Osseous structures are intact. CONCLUSION: 1. Pneumothorax on the right is slightly larger on current study. 2. Bibasilar densities. Koby Chew MD on March 21, 2017 at 7:29 Board Certified Radiologist. This report was verified electronically.
[2017-03-21] MEDS: amLODIPine BESYLATE 5 MG TAB PO SCH (07:52)
[2017-03-21] MEDS: buPROPion HCL 100 MG SUSTAINED RELEASE TAB PO SCH (07:55)
[2017-03-21] MEDS: SODIUM CHLORIDE 0.9% FLUSH 10 ML FLUSH IV FLUSH SCH ×2 (07:56→21:00)
[2017-03-21] MEDS: LIPASE/PROTEASE/AMYLASE (24,000/76,000/120,000) CAP PO SCH ×3 (07:56→17:39)
--- NOTE | 2017-03-21 10:19 | PD.CAR.PN ---
CVT Progress Note Subjective/Hospital Course: Doing well. Some fluid leaking around tube saturating the dressing. 03/18/17 Drained > 700 ml over 24 hrs. Doing well, no complaints 03/19 pain controlled, drained 110cc/ 12 hrs chest tube to suction, will plan on talc pleurodesis in am at bedside 03/20/17 talc pleurodesis at beside per Dr Yadav 03/21 cxr noted slightly larger right apical ptx 2.0cm / pt asymptomatic low grade temp last pm, pt to use IS had 350cc from chest tube / 12 hrs / serous drainage cytology pending Objective: GENERAL: SKIN: Warm and dry. HEAD: Normocephalic. EYES: No scleral icterus. No injection or drainage. NECK: Supple, trachea midline. No JVD or lymphadenopathy. CARDIOVASCULAR: Regular rate and rhythm without murmurs, gallops, or rubs. RESPIRATORY: diminished on right with some coarse breath sounds Breath sounds equal bilaterally. No accessory muscle use. chest tube to wall suction / no air leak GASTROINTESTINAL: Abdomen soft, non-tender, nondistended. MUSCULOSKELETAL: No cyanosis, or edema. BACK: Nontender without obvious deformity. No CVA tenderness. Vital Signs Date Time Temp Pulse Resp B/P Pulse Ox O2 Delivery O2 Flow Rate FiO2 03/21/17 08:00 99.7 85 21 105/56 92 03/21/17 04:00 99.4 85 17 92/51 94 03/21/17 00:00 98.8 77 17 92/50 93 03/20/17 23:00 93 Nasal Cannula 2.00 03/20/17 20:27 88 03/20/17 20:00 99.5 100 18 111/59 94 03/20/17 19:32 94 Nasal Cannula 2.00 03/20/17 17:47 102.0 03/20/17 16:51 102.5 86 20 134/69 90 03/20/17 12:00 98.7 75 20 109/58 94 03/20/17 11:50 98.7 75 18 109/58 94 03/20/17 11:22 79 98/52 03/20/17 11:08 77 108/59 03/20/17 11:06 16 03/20/17 10:42 16 Result Diagram: 03/20/17 0545 03/20/17 0545 (1) 2) Pleural effusion on right/ s/p chest tube placement Plan: s/p talc pleurodesis drained 350cc/ 12 hrs keep to suction Karime Herrera March 21, 2017 10:19
--- NOTE | 2017-03-21 10:20 | PD.ONC.PN ---
Subjective Subjective Remarks Tmax 99.7 this am. Pt sitting up in chair at bedside in no distress. Still with some pain at chest tube insertion site. Objective Data Date Time Temp Pulse Resp B/P Pulse Ox O2 Delivery O2 Flow Rate FiO2 03/21/17 08:00 99.7 85 21 105/56 92 03/21/17 04:00 99.4 85 17 92/51 94 03/21/17 00:00 98.8 77 17 92/50 93 03/20/17 23:00 93 Nasal Cannula 2.00 03/20/17 20:27 88 03/20/17 20:00 99.5 100 18 111/59 94 03/20/17 19:32 94 Nasal Cannula 2.00 03/20/17 17:47 102.0 03/20/17 16:51 102.5 86 20 134/69 90 03/20/17 12:00 98.7 75 20 109/58 94 03/20/17 11:50 98.7 75 18 109/58 94 03/20/17 11:22 79 98/52 03/20/17 11:08 77 108/59 03/20/17 11:06 16 03/20/17 10:42 16 Result Diagram: 03/20/17 0545 03/20/17 0545 Imaging Studies Last 24 hours Impressions Chest X-Ray 03/21/17 0000 Signed Impressions: Service Date/Time: Tuesday, March 21, 2017 06:50 - CONCLUSION: 1. Pneumothorax on the right is slightly larger on current study. 2. Bibasilar densities. Koby Chew MD Administered Medications Medications (Trade) Dose Ordered Sig/Jaziel Route PRN Reason Start Time Stop Time Status Last Admin Dose Admin Sodium Chloride (NS Flush) 2 ml BID IV FLUSH 03/16/17 21:00 03/21/17 07:56 Acetaminophen (Tylenol) 650 mg Q4H PRN PO TEMP > 100.4 03/16/17 14:30 03/20/17 17:47 Docusate Sodium (Colace) 100 mg Q12H PO 03/16/17 14:30 03/20/17 14:29 Amlodipine Besylate (Norvasc) 5 mg DAILY PO 03/17/17 09:00 03/20/17 10:03 Bupropion HCl (Wellbutrin Sr 12 Hr) 200 mg DAILY PO 03/17/17 09:00 03/21/17 07:55 Enoxaparin Sodium (Lovenox Inj) 40 mg Q24H SQ 03/18/17 11:00 03/20/17 10:08 Oxycodone HCl (Roxicodone) 10 mg Q4H PRN PO PAIN SCALE 6 TO 10 03/19/17 09:30 03/21/17 07:56 Hydromorphone HCl (Dilaudid Pf Inj) 1 mg Q3H PRN IV BREAKTHROUGH PAIN 03/19/17 09:30 03/20/17 10:42 Oxycodone HCl (Roxicodone) 5 mg Q4H PRN PO PAIN SCALE 3 TO 5 03/19/17 09:30 03/19/17 22:16 Amylase/Lipase/ Protease (Creon 24-76-120) 4 cap TIDPC PO 03/19/17 13:30 03/21/17 07:56 Objective Remarks GENERAL: Older female, sitting up in chair at bedside in no distress. SKIN: Warm and dry. HEAD: Normocephalic. EYES: No injection or drainage. NECK: Supple, trachea midline. CARDIOVASCULAR: +S1/S2. No murmur. RESPIRATORY: Lungs clear posteriorly. Chest tube in place, R chest. GASTROINTESTINAL: Abdomen soft, non-tender, nondistended. EXTREMITIES: No cyanosis, or edema. NEUROLOGICAL: Normal speech. Moving all extremities. Assessment/Plan Assessment 67 y/o female with history of pancreatic cancer admitted with SOB and pleural effusion. Plan 1. Chest tube still with significant output, 910 ml's in last 24 hours, unable to remove chest tube at this time. 2. She will need at least another week before further chemotherapy. 3. We will see her in the [facility] office Sunday of next week. Attending Statement The exam, history, and the medical decision-making described in the above note were completed with the assistance of the mid-level provider. I reviewed and agree with the findings presented. I attest that I had a [id number] encounter with the patient on the same day, and personally performed and documented my assessment and findings in the medical record. patient looks well and no complications from procedure. She understands that she has to wait until drainage minimal before pulling tube. Will plan on treatment with chemotherapy next week and at this point little to add. Lesa Maloney March 21, 2017 10:20 Flaco Reynolds MD March 21, 2017 20:08
[2017-03-21] MEDS: ENOXAPARIN SODIUM 40 MG/0.4 ML SYRINGE SQ SCH (10:52)
--- NOTE | 2017-03-21 15:11 | HHI.PR ---
Subjective Remarks no chills, low grade fever this am no complains of pain- up and ambulated feeling better yesterday- some leaking in the chest tube site this pm- area dry Objective Vitals Vital Signs Date Time Temp Pulse Resp B/P Pulse Ox O2 Delivery O2 Flow Rate FiO2 03/21/17 12:00 102 20 89/52 91 03/21/17 10:36 92 Nasal Cannula 2.00 03/21/17 08:00 Nasal Cannula 2.00 03/21/17 08:00 83 03/21/17 08:00 99.7 85 21 105/56 92 03/21/17 04:00 99.4 85 17 92/51 94 03/21/17 00:00 98.8 77 17 92/50 93 03/20/17 23:00 93 Nasal Cannula 2.00 03/20/17 20:27 88 03/20/17 20:00 99.5 100 18 111/59 94 03/20/17 19:32 94 Nasal Cannula 2.00 03/20/17 17:47 102.0 03/20/17 16:51 102.5 86 20 134/69 90 I/O 03/20/17 03/20/17 03/20/17 03/21/17 03/21/17 03/21/17 07:00 15:00 23:00 07:00 15:00 23:00 Intake Total 480 ml 240 ml Output Total 60 ml 750 ml 100 ml Balance 480 ml 180 ml -750 ml -100 ml Intake Oral 480 ml 240 ml Chest Tube Drainage Total 60 ml 750 ml 100 ml # Voids 4 3 3 Result Diagram: 03/20/17 0545 03/20/17 0545 Imaging Last Impressions Chest X-Ray 03/21/17 0000 Signed Impressions: Service Date/Time: Tuesday, March 21, 2017 06:50 - CONCLUSION: 1. Pneumothorax on the right is slightly larger on current study. 2. Bibasilar densities. Koby Chew MD CT Angiography 03/16/17 1156 Signed Impressions: Service Date/Time: Thursday, March 16, 2017 13:05 - CONCLUSION: Large right hemithorax needle thoracentesis Either biliary air or or portal air. CT scan of the abdomen and pelvis is suggested in this patient who has had previous Whipple. Mihai Harper MD FACR Objective Remarks awake and alert, NAD anicteric decreased breath sounds and decrease vocal fremiti- left base to mid regular rhtyhm abdomen soft extremities no edema neuro exam- non focal A/P Assessment and Plan 67-year-old female with: Shortness of breath and moderate large right pleural effusion, likely malignant. Chest tube placed 03/16 Dr Coello CTS. Small Pneumothorax 5% Pancreatic cancer with metastasis to the lung, liver, stomach, Whipple procedure [address] Reynolds oncology recently restarted chemo CT Chest reviewed findings discussed with ER PA, patient. S/P Right chest tube insertion by Dr Coello CTS on 03/16/17. Improving. still with > 500 cc fluid draining - Plan for pleurodesis per CTS CXR 03/17 reviewed and discussed with the patient Small 5 mm right apical pneumothorax. Patient is satting well on nasal canula. Oxygen supplied by nasal cannula, keep oxygen saturation more than 92%. She is saturating well on 2 L nasal cannula at this time. Monitor closely. Pain medications per pain scale PO and also Dilaudid for breakthrough pain increased as patient with more pain. Change norco ro oxycodone as works better per patient. Patient is allergic to morphine. Continue Creon HTN. Restart amlodipine. Currently blood pressure is controlled at this time. Monitor blood pressure and adjust medications as needed. DVT prophylaxis SCD/teds. Hold on chemical prophylaxis at this time due to chest tube, restart as indicated by CTS Discussed with the patient, nurse Discharge plan Pending improvement. Patient will have pleurodesis today. Discharge when improved and cleared by consultants. Possible tomorrow Discharge Planning pending improvement and clearance form consultants. Plan for pleurodesis. patient up and ambulating Charlotte Sanchez MD March 21, 2017 15:11
[2017-03-21] MEDS: ACETAMINOPHEN 325 MG TAB PO PRN (20:52)
[2017-03-22] VITALS (10 sets, daily range): BP systolic 96–108; BP diastolic 51–64; PULSE 73–90; RESP 16–20; TEMP 97.8–100.9; O2SAT 89–94
[2017-03-22] MEDS: DOCUSATE SODIUM 100 MG CAP PO SCH ×2 (02:30→12:58)
[2017-03-22] MEDS: ACETAMINOPHEN 325 MG TAB PO PRN ×2 (04:16→18:41)
[2017-03-22] MEDS ORDERED: BENZONATATE 100 MG CAP PO ONE (05:00)
--- NOTE | 2017-03-22 05:35 | RADRPT ---
EXAM DATE/TIME: 03/22/2017 05:05 [facility] COMPARISON: CHEST SINGLE AP, March 21, 2017, 6:50. INDICATIONS : Shortness of breath, possible pulmonary disease. MEDICAL HISTORY : Carcinoma, pancreas. SURGICAL HISTORY : Whipple ENCOUNTER: Subsequent ACUITY: 1 week PAIN SCORE: 1/10 LOCATION: Right chest FINDINGS: A single AP erect view of the chest was obtained and now demonstrates a new area of oval high density projected over the right upper lobe consistent with a pseudotumor. The right-sided chest tube remain s in place and there is a right apical pneumothorax again identified. There is no mediastinal shift. There is patchy opacity remaining at the lung bases with blunting of both costophrenic angles. The he art size appears mildly prominent. The right-sided implantable port catheter remains in place. There are overlying electrocardiogram leads. CONCLUSION: 1. New high density masslike oval area of density projected over the right upper lobe most consistent with a pseudotumor which represents fluid which may be in the pneumothorax cavity. The right apical pneumothorax is again noted. The previously noted pleural reflection is no longer distinctly visualiz ed. The pneumothorax likely has increased in size. There is no mediastinal shift. 2. Patchy opacity remains at both lung bases with small effusions. The right-sided chest tube remains in place. Ritchie Garcia MD on March 22, 2017 at 5:30 Board Certified Radiologist. This report was verified electronically.
[2017-03-22] MEDS: amLODIPine BESYLATE 5 MG TAB PO SCH (09:00)
[2017-03-22] MEDS: LIPASE/PROTEASE/AMYLASE (24,000/76,000/120,000) CAP PO SCH ×3 (09:30→17:34)
[2017-03-22] MEDS: SODIUM CHLORIDE 0.9% FLUSH 10 ML FLUSH IV FLUSH SCH ×2 (09:46→21:00)
[2017-03-22] MEDS: buPROPion HCL 100 MG SUSTAINED RELEASE TAB PO SCH (09:46)
[2017-03-22] MEDS ORDERED: fentaNYL CITRATE 250 MCG/5 ML AMP ONE (14:32)
[2017-03-22] MEDS ORDERED: MIDAZOLAM HCL 5 MG/5 ML VIAL ONE (14:32)
[2017-03-22] MEDS ORDERED: LIDOCAINE 1%/EPINEPHrine 1:100,000 SOLN 20 ML VIAL ONE (14:33)
[2017-03-22] MEDS ORDERED: SODIUM BICARB 8.4% (PED) INJ 10 MEQ/10 ML SYR ONE (14:33)
--- NOTE | 2017-03-22 14:43 | HHI.PR ---
Subjective Remarks went for CT guided drainage- fluid reaccumulated denies any pain Objective Vitals Vital Signs Date Time Temp Pulse Resp B/P Pulse Ox O2 Delivery O2 Flow Rate FiO2 03/22/17 12:00 99.2 84 18 106/59 92 03/22/17 09:40 Nasal Cannula 2.00 Humidified 03/22/17 08:08 73 03/22/17 08:00 98.8 76 18 107/63 92 03/22/17 05:07 16 03/22/17 04:00 100.4 83 17 107/56 91 03/22/17 00:00 97.8 77 16 105/60 90 03/21/17 20:52 Nasal Cannula 2.00 Humidified 03/21/17 20:00 100.3 85 17 101/59 92 03/21/17 20:00 84 03/21/17 17:39 91 Nasal Cannula 2.00 03/21/17 16:00 99.2 84 20 111/58 92 03/21/17 15:35 91 Nasal Cannula 2.00 I/O 03/21/17 03/21/17 03/21/17 03/22/17 03/22/17 03/22/17 07:00 15:00 23:00 07:00 15:00 23:00 Intake Total 960 ml 240 ml Output Total 100 ml 370 ml Balance -100 ml 960 ml -370 ml 240 ml Intake Oral 960 ml 240 ml Chest Tube Drainage Total 100 ml 370 ml # Voids 3 2 4 Result Diagram: 03/20/17 0545 03/20/17 0545 Imaging Last Impressions Chest X-Ray 03/22/17 0000 Signed Impressions: Service Date/Time: March 05:05 - CONCLUSION: 1. New high density masslike oval area of density projected over the right upper lobe most consistent with a pseudotumor which represents fluid which may be in the pneumothorax cavity. The right apical pneumothorax is again noted. The previously noted pleural reflection is no longer distinctly visualized. The pneumothorax likely has increased in size. There is no mediastinal shift. 2. Patchy opacity remains at both lung bases with small effusions. The right- sided chest tube remains in place. Ritchie Garcia MD CT Angiography 03/16/17 1156 Signed Impressions: Service Date/Time: Thursday, March 16, 2017 13:05 - CONCLUSION: Large right hemithorax needle thoracentesis Either biliary air or or portal air. CT scan of the abdomen and pelvis is suggested in this patient who has had previous Whipple. Mihai Harper MD FACR Objective Remarks awake and alert, NAD anicteric decreased breath sounds and decrease vocal fremiti- left base to mid [address] regular rhythm abdomen soft extremities no edema neuro exam- non focal Procedures chest tube placement 03/22 A/P Assessment and Plan 67-year-old female with: Shortness of breath and moderate large right pleural effusion, likely malignant. Chest tube placed 03/16 Dr Coello CTS. Small Pneumothorax 5% Pancreatic cancer with metastasis to the lung, liver, stomach, Whipple procedure [address] Reynolds oncology recently restarted chemo CT Chest reviewed findings discussed with ER PA, patient. S/P Right chest tube insertion by Dr Coello CTS on 03/16/17. Improving. still with > 500 cc fluid draining - Plan for pleurodesis per CTS CXR 03/17 reviewed and discussed with the patient Small 5 mm right apical pneumothorax. Patient is satting well on nasal canula. Oxygen supplied by nasal cannula, keep oxygen saturation more than 92%. She is saturating well on 2 L nasal cannula at this time. Monitor closely. Pain medications per pain scale PO and also Dilaudid for breakthrough pain increased as patient with more pain. Change norco ro oxycodone as works better per patient. Patient is allergic to morphine. 03/22 - went for chest tube insertion today- more fluid on repeat CXR HTN. amlodipine. Currently blood pressure is controlled at this time. Monitor blood pressure and adjust medications as needed. DVT prophylaxis SCD/teds. Hold on chemical prophylaxis at this time due to chest tube, restart as indicated by CTS Discussed with the patient, nurse Discharge Planning pending improvement and clearance form consultants. Plan for pleurodesis. patient up and ambulating Charlotte Sanchez MD March 22, 2017 14:43
--- NOTE | 2017-03-22 15:45 | PD.CAR.PN ---
CVT Progress Note Subjective/Hospital Course: Doing well. Some fluid leaking around tube saturating the dressing. 03/18/17 Drained > 700 ml over 24 hrs. Doing well, no complaints 03/19 pain controlled, drained 110cc/ 12 hrs chest tube to suction, will plan on talc pleurodesis in am at bedside 03/20/17 talc pleurodesis at beside per Dr Yadav 03/21 cxr noted slightly larger right apical ptx 2.0cm / pt asymptomatic low grade temp last pm, pt to use IS had 350cc from chest tube / 12 hrs / serous drainage cytology pending 03/22 had 350cc drainage yesterday in chest tube/ no further drainage per nursing over the kennel hand cxr shows fluid collection in right apical pneumothorax cavity will send for CT guided drainage/ pig tail cath and remove right anterior chest tube in am Objective: GENERAL: SKIN: Warm and dry. HEAD: Normocephalic. EYES: No scleral icterus. No injection or drainage. NECK: Supple, trachea midline. No JVD or lymphadenopathy. CARDIOVASCULAR: Regular rate and rhythm without murmurs, gallops, or rubs. RESPIRATORY: diminished and coarse on right chest tube to wall suction/ no air leak , very scant drainage No accessory muscle use. GASTROINTESTINAL: Abdomen soft, non-tender, nondistended. MUSCULOSKELETAL: No cyanosis, or edema. BACK: Nontender without obvious deformity. No CVA tenderness. Vital Signs Date Time Temp Pulse Resp B/P Pulse Ox O2 Delivery O2 Flow Rate FiO2 03/22/17 15:30 99.1 90 16 96/53 89 03/22/17 12:00 99.2 84 18 106/59 92 03/22/17 09:40 Nasal Cannula 2.00 Humidified 03/22/17 08:08 73 03/22/17 08:00 98.8 76 18 107/63 92 03/22/17 05:07 16 03/22/17 04:00 100.4 83 17 107/56 91 03/22/17 00:00 97.8 77 16 105/60 90 03/21/17 20:52 Nasal Cannula 2.00 Humidified 03/21/17 20:00 100.3 85 17 101/59 92 03/21/17 20:00 84 03/21/17 17:39 91 Nasal Cannula 2.00 03/21/17 16:00 99.2 84 20 111/58 92 Result Diagram: 03/20/17 0545 03/20/17 0545 (1) 2) Pleural effusion on right/ s/p chest tube placement Plan: s/p talc pleurodesis drained 350cc/24 hrs / no drainage per nursing over kennel hand plan ct guided drainage right apical fluid collection and chest tube placement eval for right anterior chest tube removal in Karime Herrera March 22, 2017 15:45
--- NOTE | 2017-03-22 16:05 | RADRPT ---
EXAM DATE/TIME: 03/22/2017 14:19 INDICATIONS : Right pleural effusion. SEDATION TIME: 30 minutes MEDICATION(S): 1.) 2.5 mg midazolam (Versed) IV 2.) 125 mcg fentanyl (Sublimaze) IV DEVICE(S): 1.) 10 Fr Stanley FLUID: Total volume of300 cc of clear, yellow fluid was remoted. Fluid was discarded. MEDICAL HISTORY : Carcinoma, pancreas. Hypertension. SURGICAL HISTORY : Whipple ENCOUNTER: Initial ACUITY: 1 day PAIN SCORE: 0/10 LOCATION: Right chest PROCEDURE: 1.) Conscious sedation with continuous EKG and oximetry monitoring. PROCEDURE : 1. CT guided chest tube placement. 2. Conscious sedation with continuous EKG and oximetry monitoring. The risks, benefits and alternatives to the procedure were explained and verbal and written consent w as obtained. The site was prepped in sterile fashion. Full sterile technique was used, including ca p, mask, sterile gloves and gown and a large sterile sheet. Hand hygiene and 2% chlorhexidine and/or betadine/alcohol prep was utilized per protocol for cutaneous antisepsis. The skin and subcutaneous tissues were infiltrated with local anesthetic solution. Using automated exposure control and adjus tment of the mA and/or kV according to patient size, radiation dose was kept as low as reasonably ach ievable to obtain optimal diagnostic quality images. With CT guidance the chest was punctured and the prescribed catheter was placed in the lung apex. Wal l suction was applied. Post procedure images demonstrate satisfactory position of the tube. The cat heter was sutured in place and a Percu-Stay was applied. Conscious sedation was performed with the prescribed dosages and duration as above. The patient taylor ated the procedure well and there were no complications. EKG and oximetry remained stable throughout the procedure. The patient was sent to post anesthesia recovery in stable condition. CONCLUSION: Uncomplicated chest tube placement as above. Nolan Byran MD on March 22, 2017 at 16:03 Board Certified Radiologist. This report was verified electronically.
[2017-03-22] MEDS: HYDROmorphone HCL PF 1 MG/ML VIAL IV PRN (18:42)
[2017-03-22] MEDS: TEMAZEPAM 15 MG CAP PO PRN (23:43)
[2017-03-23] VITALS (9 sets, daily range): BP systolic 97–116; BP diastolic 52–59; PULSE 74–98; RESP 17–20; TEMP 97.1–101; O2SAT 91–96
[2017-03-23] MEDS: DOCUSATE SODIUM 100 MG CAP PO SCH ×2 (02:30→16:24)
[2017-03-23 06:55] LABS: AUTOMATED NEUTROPHIL # 9.6 TH/MM3 (1.8-7.7); BASOPHIL % 0.4 % (0.0-2.0); EOSINOPHIL # 0.1 TH/MM3 (0-0.4); HEMO FLAGS DIFF FINAL; LYMPH % 7.3 % (9.0-44.0); LYMPHOCYTE # 0.9 TH/MM3 (1.0-4.8); MEAN CELL VOLUME 92.2 FL (80.0-100.0); MEAN CORPUSCULAR HEMOGLOBIN 30.5 PG (27.0-34.0); MEAN CORPUSCULAR HGB CONC 33.1 % (32.0-36.0); MONO % 9.3 % (0.0-8.0); PLATELET COUNT 535 TH/MM3 (150-450); RED BLOOD COUNT 3.26 MIL/MM3 (4.00-5.30); RED CELL DISTRIBUTION WIDTH 15.2 % (11.6-17.2); WHITE BLOOD COUNT 11.7 TH/MM3 (4.0-11.0)
[2017-03-23] MEDS: amLODIPine BESYLATE 5 MG TAB PO SCH (08:24)
[2017-03-23] MEDS: buPROPion HCL 100 MG SUSTAINED RELEASE TAB PO SCH (08:26)
--- NOTE | 2017-03-23 11:01 | HHI.PR ---
Subjective Remarks patient up on chair- feeling better anterior CT pulled out this am Objective Vitals Vital Signs Date Time Temp Pulse Resp B/P Pulse Ox O2 Delivery O2 Flow Rate FiO2 03/23/17 08:49 96 Nasal Cannula 2.00 03/23/17 08:35 100.1 91 18 116/56 96 03/23/17 08:23 16 03/23/17 05:06 74 03/23/17 04:00 97.1 93 17 114/55 91 03/23/17 00:00 98.9 87 18 97/52 91 03/22/17 21:57 Nasal Cannula 2.00 Humidified 03/22/17 20:00 99.2 88 17 108/55 91 03/22/17 17:00 100.9 78 18 108/56 94 03/22/17 16:15 78 20 105/64 91 03/22/17 15:45 88 20 104/51 92 03/22/17 15:30 99.1 90 16 96/53 89 03/22/17 12:00 99.2 84 18 106/59 92 I/O 03/22/17 03/22/17 03/22/17 03/23/17 03/23/17 03/23/17 07:00 15:00 23:00 07:00 15:00 23:00 Intake Total 240 ml 0 ml 200 ml Balance 240 ml 0 ml 200 ml Intake Oral 240 ml 0 ml 200 ml # Voids 4 3 4 # Bowel Movements 0 Result Diagram: 03/23/17 0619 03/20/17 0545 Imaging Last Impressions Chest Tube Insertion 03/22/17 1435 Signed Impressions: Service Date/Time: March 14:19 - CONCLUSION: Uncomplicated chest tube placement as above. Nolan Bryan MD Chest X-Ray 03/22/17 0000 Signed Impressions: Service Date/Time: March 05:05 - CONCLUSION: 1. New high density masslike oval area of density projected over the right upper lobe most consistent with a pseudotumor which represents fluid which may be in the pneumothorax cavity. The right apical pneumothorax is again noted. The previously noted pleural reflection is no longer distinctly visualized. The pneumothorax likely has increased in size. There is no mediastinal shift. 2. Patchy opacity remains at both lung bases with small effusions. The right- sided chest tube remains in place. Ritchie Garcia MD CT Angiography 03/16/17 1156 Signed Impressions: Service Date/Time: Thursday, March 16, 2017 13:05 - CONCLUSION: Large right hemithorax needle thoracentesis Either biliary air or or portal air. CT scan of the abdomen and pelvis is suggested in this patient who has had previous Whipple. Mihai Harper MD FACR Objective Remarks awake and alert, NAD anicteric better breath sound right LD, decrease vocal fremiti CT in place right lower chest wall, regular rhythm abdomen soft extremities no edema neuro exam- non focal Procedures chest tube placement 03/22 A/P Assessment and Plan 67-year-old female with: Shortness of breath and moderate large right pleural effusion, likely malignant. Chest tube placed 03/16 Dr Coello CTS. Small Pneumothorax 5% Pancreatic cancer with metastasis to the lung, liver, stomach, Whipple procedure [address] Reynolds oncology recently restarted chemo CT Chest reviewed findings discussed with ER PA, patient. S/P Right chest tube insertion by Dr Coello CTS on 03/16/17. Improving. still with > 500 cc fluid draining - Plan for pleurodesis per CTS CXR 03/17 reviewed and discussed with the patient Small 5 mm right apical pneumothorax. Patient is satting well on nasal canula. Oxygen supplied by nasal cannula, keep oxygen saturation more than 92%. She is saturating well on 2 L nasal cannula at this time. Monitor closely. Pain medications per pain scale PO and also Dilaudid for breakthrough pain increased as patient with more pain. Change norco ro oxycodone as works better per patient. Patient is allergic to morphine. 1 chest tube removed today 03/23 another chest tube still in place HTN. amlodipine. Currently blood pressure is controlled at this time. Monitor blood pressure and adjust medications as needed. DVT prophylaxis SCD/teds. Hold on chemical prophylaxis at this time due to chest tube, restart as indicated by CTS Discussed with the patient, nurse Discharge Planning pending improvement and clearance form consultants. Plan for pleurodesis. patient up and ambulating Charlotte Sanchez MD March 23, 2017 11:01
[2017-03-23] MEDS: LIPASE/PROTEASE/AMYLASE (24,000/76,000/120,000) CAP PO SCH ×3 (12:37→18:30)
[2017-03-23] MEDS: SODIUM CHLORIDE 0.9% FLUSH 10 ML FLUSH IV FLUSH SCH ×2 (12:37→20:37)
--- NOTE | 2017-03-23 15:49 | PD.CAR.PN ---
CVT Progress Note Subjective/Hospital Course: Doing well. Some fluid leaking around tube saturating the dressing. 03/18/17 Drained > 700 ml over 24 hrs. Doing well, no complaints 03/19 pain controlled, drained 110cc/ 12 hrs chest tube to suction, will plan on talc pleurodesis in am at bedside 03/20/17 talc pleurodesis at beside per Dr Yadav 03/21 cxr noted slightly larger right apical ptx 2.0cm / pt asymptomatic low grade temp last pm, pt to use IS had 350cc from chest tube / 12 hrs / serous drainage cytology pending 03/22 had 350cc drainage yesterday in chest tube/ no further drainage per nursing over the geometry teacher cxr shows fluid collection in right apical pneumothorax cavity will send for CT guided drainage/ pig tail cath and remove right anterior chest tube in am 03/23 large bore anterior chest tube removed without difficulty Vaseline occlusive dressing applied for CXR in am / pigtail cath in place right upper chest wall/ drained 300cc serous fluid after removal Objective: GENERAL: SKIN: Warm and dry. HEAD: Normocephalic. EYES: No scleral icterus. No injection or drainage. NECK: Supple, trachea midline. No JVD or lymphadenopathy. CARDIOVASCULAR: Regular rate and rhythm without murmurs, gallops, or rubs. RESPIRATORY: diminished in right lower lobe, chest tube to wall suction, no air leak Breath sounds equal bilaterally. No accessory muscle use. GASTROINTESTINAL: Abdomen soft, non-tender, nondistended. MUSCULOSKELETAL: No cyanosis, or edema. BACK: Nontender without obvious deformity. No CVA tenderness. Vital Signs Date Time Temp Pulse Resp B/P Pulse Ox O2 Delivery O2 Flow Rate FiO2 03/23/17 12:26 99.0 86 18 111/56 93 03/23/17 08:49 96 Nasal Cannula 2.00 03/23/17 08:35 100.1 91 18 116/56 96 03/23/17 08:23 16 03/23/17 05:06 74 03/23/17 04:00 97.1 93 17 114/55 91 03/23/17 00:00 98.9 87 18 97/52 91 03/22/17 21:57 Nasal Cannula 2.00 Humidified 03/22/17 20:00 99.2 88 17 108/55 91 03/22/17 17:00 100.9 78 18 108/56 94 03/22/17 16:15 78 20 105/64 91 03/22/17 15:45 88 20 104/51 92 Labs: Laboratory Tests Test 03/23/17 06:19 White Blood Count 11.7 TH/MM3 (4.0-11.0) Red Blood Count 3.26 MIL/MM3 (4.00-5.30) Hemoglobin 9.9 GM/DL (11.6-15.3) Hematocrit 30.0 % (35.0-46.0) Mean Corpuscular Volume 92.2 FL (80.0-100.0) Mean Corpuscular Hemoglobin 30.5 PG (27.0-34.0) Mean Corpuscular Hemoglobin 33.1 % Concent (32.0-36.0) Red Cell Distribution Width 15.2 % (11.6-17.2) Platelet Count 535 TH/MM3 (150-450) Mean Platelet Volume 7.7 FL (7.0-11.0) Neutrophils (%) (Auto) 82.0 % (16.0-70.0) Lymphocytes (%) (Auto) 7.3 % (9.0-44.0) Monocytes (%) (Auto) 9.3 % (0.0-8.0) Eosinophils (%) (Auto) 1.0 % (0.0-4.0) Basophils (%) (Auto) 0.4 % (0.0-2.0) Neutrophils # (Auto) 9.6 TH/MM3 (1.8-7.7) Lymphocytes # (Auto) 0.9 TH/MM3 (1.0-4.8) Monocytes # (Auto) 1.1 TH/MM3 (0-0.9) Eosinophils # (Auto) 0.1 TH/MM3 (0-0.4) Basophils # (Auto) 0.0 TH/MM3 (0-0.2) CBC Comment DIFF FINAL Differential Comment Result Diagram: 03/23/17 0619 03/20/17 0545 (1) 2) Pleural effusion on right/ s/p chest tube placement Plan: s/p talc pleurodesis s/p ct guided drainage right apical fluid collection and chest tube placement right anterior chest tube removed this am f/u CXR in am path inconclusive for malignant cells Karime Herrera March 23, 2017 15:49
[2017-03-23] MEDS: ACETAMINOPHEN 325 MG TAB PO PRN (18:00)
[2017-03-23] MEDS ORDERED: VANCOMYCIN INJ 1,000 MG in SODIUM CHLOR 0.9% 250 ML INJ 250 ML IV ONE (20:00)
[2017-03-23 20:52] LABS: PLEURAL FLUID LYMPHS 17 %
[2017-03-23] MEDS: CHLORPHENIR/HYDROCOD LIQUID 8 MG/10 MG/5 ML CUP PO SCH (21:43)
[2017-03-24] VITALS (9 sets, daily range): BP systolic 94–115; BP diastolic 50–59; PULSE 79–86; RESP 17–18; TEMP 97.9–100.5; O2SAT 92–95
[2017-03-24] MEDS: DOCUSATE SODIUM 100 MG CAP PO SCH ×2 (02:30→12:44)
--- NOTE | 2017-03-24 06:01 | RADRPT ---
EXAM DATE/TIME: 03/24/2017 04:39 [facility] COMPARISON: CHEST SINGLE AP, March 22, 2017, 5:05. INDICATIONS : Shortness of breath, possible pulmonary disease. MEDICAL HISTORY : Carcinoma, pancreas. SURGICAL HISTORY : Whipple ENCOUNTER: Subsequent ACUITY: 2 weeks PAIN SCORE: 1/10 LOCATION: Right chest FINDINGS: Small caliber right chest tube present with marked decrease in size of previous loculated right pleur al effusion. Right [id number] in superior vena cava. Small residual right effusion remains inferio rly. Small left effusion as well. Basilar airspace disease similar to prior exam. CONCLUSION: 1. Small caliber right chest tube with decrease in size of loculated right pleural effusion. Basilar effusions and airspace disease persists. Max De La Cruz MD on March 24, 2017 at 5:59 Board Certified Radiologist. This report was verified electronically.
[2017-03-24] MEDS: LIPASE/PROTEASE/AMYLASE (24,000/76,000/120,000) CAP PO SCH ×3 (08:25→17:06)
[2017-03-24] MEDS: SODIUM CHLORIDE 0.9% FLUSH 10 ML FLUSH IV FLUSH SCH ×2 (08:26→20:58)
[2017-03-24] MEDS: buPROPion HCL 100 MG SUSTAINED RELEASE TAB PO SCH (08:26)
[2017-03-24] MEDS: CHLORPHENIR/HYDROCOD LIQUID 8 MG/10 MG/5 ML CUP PO SCH ×2 (08:35→20:57)
[2017-03-24] MEDS: amLODIPine BESYLATE 5 MG TAB PO SCH (14:49)
--- NOTE | 2017-03-24 16:08 | HHI.PR ---
Subjective Remarks patient breathing better T 101 last 24 hours coughing up better up on chair Objective Vitals Vital Signs Date Time Temp Pulse Resp B/P Pulse Ox O2 Delivery O2 Flow Rate FiO2 03/24/17 12:38 86 18 111/52 95 03/24/17 12:30 99.9 03/24/17 08:42 81 03/24/17 08:36 92 Nasal Cannula 2.00 03/24/17 08:00 100.0 80 18 110/56 92 03/24/17 04:00 99.4 85 18 114/58 93 03/24/17 00:00 97.9 79 17 94/50 93 03/23/17 20:31 93 Nasal Cannula 2.00 03/23/17 20:06 98 03/23/17 20:00 98.9 83 18 111/59 93 03/23/17 17:36 101.0 90 20 109/56 96 03/23/17 16:24 100.4 91 18 109/58 92 I/O 03/23/17 03/23/17 03/23/17 03/24/17 03/24/17 03/24/17 07:00 15:00 23:00 07:00 15:00 23:00 Intake Total 200 ml 600 ml 580 ml 620 ml Output Total 40 ml Balance 200 ml 600 ml 580 ml 580 ml Intake Oral 200 ml 600 ml 480 ml 480 ml IV Total 100 ml 140 ml Chest Tube Drainage Total 40 ml # Voids 4 3 1 1 # Bowel Movements 1 Result Diagram: 03/23/17 0619 03/20/17 0545 Imaging Last Impressions Chest X-Ray 03/24/17 0600 Signed Impressions: Service Date/Time: Friday, March 24, 2017 04:39 - CONCLUSION: 1. Small caliber right chest tube with decrease in size of loculated right pleural effusion. Basilar effusions and airspace disease persists. Max De La Cruz MD Chest Tube Insertion 03/22/17 1435 Signed Impressions: Service Date/Time: March 14:19 - CONCLUSION: Uncomplicated chest tube placement as above. Nolan Bryan MD CT Angiography 03/16/17 1156 Signed Impressions: Service Date/Time: Thursday, March 16, 2017 13:05 - CONCLUSION: Large right hemithorax needle thoracentesis Either biliary air or or portal air. CT scan of the abdomen and pelvis is suggested in this patient who has had previous Whipple. Mihai Harper MD FACR Objective Remarks awake and alert, NAD anicteric decreased breath sounds and decrease vocal fremiti- left base to mid- breath sounds better chest tubes in place regular rhythm abdomen soft extremities no edema neuro exam- non focal Procedures chest tube placement 03/22 A/P Assessment and Plan 67-year-old female with: Shortness of breath and moderate large right pleural effusion, likely malignant. Chest tube placed 03/16 Dr Coello CTS. Sepsis - possible Empyema- growing S. Aureus in pleural fluid Small Pneumothorax 5% Pancreatic cancer with metastasis to the lung, liver, stomach, Whipple procedure [address] Reynolds oncology recently restarted chemo CT Chest reviewed findings discussed with ER PA, patient. S/P Right chest tube insertion by Dr Coello CTS on 03/16/17. Improving. still with > 500 cc fluid draining - Plan for pleurodesis per CTS CXR 03/17 reviewed and discussed with the patient Small 5 mm right apical pneumothorax. Patient is satting well on nasal canula. Oxygen supplied by nasal cannula, keep oxygen saturation more than 92%. She is saturating well on 2 L nasal cannula at this time. Monitor closely. Dilaudid for breakthrough pain increased as patient with more pain. Change norco ro oxycodone as works better per patient. Patient is allergic to morphine. another chest tube still in place received x 1 Vancomycin 03/23 ID consult for recommendation- d/w ID- Continued Vancomycin. Cancel Zosyn order HTN. amlodipine. Currently blood pressure is controlled at this time. Monitor blood pressure and adjust medications as needed. DVT prophylaxis SCD/teds. Hold on chemical prophylaxis at this time due to chest tube, restart as indicated by CTS Discussed with the patient, nurse Discharge Planning pending improvement and clearance form consultants. Plan for pleurodesis. patient up and ambulating Charlotte Sanchez MD March 24, 2017 16:08 Charlotte Sanchez MD March 24, 2017 16:08
[2017-03-24] MEDS ORDERED: PIPERACIL-TAZO 3.375 GM PREMIX 50 ML IV SCH (17:00)
--- NOTE | 2017-03-24 17:51 | PD.CONS ---
History of Present Illness Service Infectious disease Consult Requested By Dr Prosper Sanchez Reason for Consult Evaluate patient with sepsis, has staph aureus Primary Care Physician Shawn Benavides MD Diagnoses: History of Present Illness Patient seen and examined. Records reviewed. Patient is a 67-year-old female, with history of pancreatic cancer, has known metastatic disease to the lung, liver and stomach, status post Whipple procedure in 2013, came in for evaluation of shortness of breath. Patient had CTA of the chest which showed evidence of right pleural effusion, and no pulmonary embolism seen. She has had some dry cough. Cardiothoracic surgery was consultative and chest tube was placed on her right. Cytology was sent and it was inconclusive for malignancy. There was no other fluid analysis done. On March 20, when the drainage started decreasing, patient underwent talc pleurodesis. Patient has been having on and off fevers since March 17, but recently the temperatures have been higher and persistent. She developed reaccumulation of the fluid, and a new chest tube was placed in the right anterior chest, on March 22, and the first chest tube was removed. Because she was having persistent fevers, cultures were done, including pleural fluid culture. This is now reported as growing staph aureus. Pleural fluid analysis revealed 1300 WBC, 70% neutrophils, and 6800 RBC. Patient was started on Zosyn yesterday, and was given 1 dose of IV vancomycin. Infectious disease consultation as per requested to evaluate the patient. Review of Systems Constitutional: COMPLAINS OF: Fever Eyes: DENIES: Eye pain Ears, nose, mouth, throat: DENIES: Nasal discharge, Oral lesions, Throat pain, Ear Pain, Sinus Pain Respiratory: COMPLAINS OF: Cough, Shortness of breath, DENIES: Sputum production Cardiovascular: DENIES: Chest pain, Palpitations, Syncope Gastrointestinal: COMPLAINS OF: Diarrhea, DENIES: Abdominal pain, Nausea, Vomiting, Difficulty Swallowing Genitourinary: DENIES: Urgency, Dysuria Musculoskeletal: DENIES: Joint pain, Joint Swelling Integumentary: DENIES: Rash Immunologic/allergic: DENIES: Urticaria Neurologic: DENIES: Headache Psychiatric: DENIES: Confusion Past Family Social History Allergies: Coded Allergies: Morphine (Verified Allergy, Severe, Rash, 03/16/17) Past Medical History Pancreatic cancer with metastasis to the lung, liver, stomach HTN Past Surgical History Whipple procedure 2014 Lower lip surgery Exploratory lap Cyst removal right buttocks Active Ordered Medications Tylenol Norvasc Creon Wellbutrin Tussionex Colace Dilaudid MOM Zofran Oxycodone Zosyn Compazine Restoril Social History No smoking No illicit drug use Alcohol abuse Physical Exam Vital Signs Vital Signs Date Time Temp Pulse Resp B/P Pulse Ox O2 Delivery O2 Flow Rate FiO2 03/24/17 16:00 100.0 86 18 110/59 92 03/24/17 12:38 86 18 111/52 95 03/24/17 12:30 99.9 03/24/17 08:42 81 03/24/17 08:36 92 Nasal Cannula 2.00 03/24/17 08:00 100.0 80 18 110/56 92 03/24/17 04:00 99.4 85 18 114/58 93 03/24/17 00:00 97.9 79 17 94/50 93 03/23/17 20:31 93 Nasal Cannula 2.00 03/23/17 20:06 98 03/23/17 20:00 98.9 83 18 111/59 93 Physical Exam GENERAL: Patient is a thin, well-developed female, awake and alert, not in respiratory distress. SKIN: Warm and dry. No generalized rash, no ecchymoses and no evidence of embolic lesions. HEAD: Atraumatic. Normocephalic. No temporal wasting, or tenderness. EYES: [place] conjunctiva. No petechia or hemorrhage. Pupils equal, round and reactive to light. Extraocular movements full and intact. No scleral icterus. No injection or drainage. EARS, NOSE AND THROAT: Nose without bleeding or purulent nasal discharge. No sinus tenderness. Mucous membranes pink and moist. No oral lesions noted. No exudate. No oral thrush. NECK: Trachea midline. Supple and not tender, no meningeal signs CARDIOVASCULAR: Regular rate and rhythm. No murmurs, rubs or gallops heard RESPIRATORY: R anterior CT in place. Port in R upper chest, not accessed, no evidence of infection. Decreased BS whole R side, clear on L. ABDOMEN: Soft, non-tender, nondistended. Has well healed abdominal incision. Bowel sounds present and normoactive. No guarding. No rebound. No organomegaly. EXTREMITIES: No clubbing, cyanosis, or edema.No joint effusion, has good ROM. No calf tenderness. Well perfused and warm. NEUROLOGICAL: Awake and alert. Cranial nerves grossly intact. Motor grossly within normal limits. PSYCHIATRIC: Normal affect, calm and cooperative. LINE: No evidence of infection Laboratory Laboratory Tests Test 03/23/17 19:30 Pleural Fluid WBC 1357 Pleural Fluid RBC 6878 Pleural Fluid Neutrophils 70 Pleural Fluid Lymphocytes 17 Pleural Fluid Monocytes 6 Pleural Fluid Eosinophils 6 Pleural Fluid Basophils 1 Date/Time Procedure Status Source Growth 03/23/17 19:30 Gram Stain - Final Resulted Fluid Pleural Fluid 03/23/17 19:30 Body Fluid Culture - Preliminary Resulted Staphylococcus Aureus 03/23/17 19:17 Aerobic Blood Culture - Preliminary Resulted Blood Peripheral NO GROWTH IN 1 DAY 03/23/17 19:17 Anaerobic Blood Culture - Preliminary Resulted Blood Peripheral NO GROWTH IN 1 DAY Result Diagram: 03/23/17 0619 03/20/17 0545 Imaging RADIOLOGY STUDIES/FILMS REVIEWED Chest X-Ray 03/24/17 0600 Signed Impressions: Service Date/Time: Friday, March 24, 2017 04:39 - CONCLUSION: 1. Small caliber right chest tube with decrease in size of loculated right pleural effusion. Basilar effusions and airspace disease persists. Max De La Cruz MD Chest Tube Insertion 03/22/17 1435 Signed Impressions: Service Date/Time: March 14:19 - CONCLUSION: Uncomplicated chest tube placement as above. Nolan Bryan MD CT Angiography 03/16/17 1156 Signed Impressions: Service Date/Time: Thursday, March 16, 2017 13:05 - CONCLUSION: Large right hemithorax needle thoracentesis Either biliary air or or portal air. CT scan of the abdomen and pelvis is suggested in this patient who has had previous Whipple. Mihai Harper MD FACR Assessment and Plan Assessment and Plan IMPRESSION Sepsis, etiology? new Admitted with R pleural effusion - cytology indeterminate for malignancy - no fluid analysis done on initial tap, underwent talc pleurodesis 03/20 - ?now infected fluid, vs infected on admission, C/S Staph aureus Pancreatic CA with mets, S/P Whipple 2013 RECOMMENDATION Will also send UA and C/S Start IV vancomycin Follow new C/S Monitor temps Follow clinically I will determine course of Rx once work-up completed and C/S finalized I will follow along with you Thank you for this consultation Discussed Condition With Explained plan to the patient D/W Sydnee Fleming MD March 24, 2017 17:51
[2017-03-24] MEDS ORDERED: Vancomycin Consult Pharmacy 1 EA OTHER SCH (18:00)
[2017-03-24] MEDS: VANCOMYCIN 1,000 MG/NS 250 ML IV SCH ×2 (20:58)
[2017-03-24] MEDS: TEMAZEPAM 15 MG CAP PO PRN (22:36)
[2017-03-25] VITALS (9 sets, daily range): BP systolic 96–120; BP diastolic 53–70; PULSE 79–91; RESP 17–22; TEMP 97.5–101.6; O2SAT 90–95
[2017-03-25 00:12] LABS: BLOOD, URINE TRACE (NEG); COMMENT (UR) CULT NOT INDICATED; CULTURE IF INDICATED CULT NOT INDICATED; GLUCOSE,URINE NEG (NEG); KETONE, URINE NEG (NEG); NITRITE,URINE NEG (NEG); PH, URINE 5.5 (5.0-8.5); SQUAMOUS EPITHELIAL CELL URINE <1 /hpf (0-5); URINE COLOR YELLOW (YELLW/STRAW)
[2017-03-25] MEDS: DOCUSATE SODIUM 100 MG CAP PO SCH ×2 (02:30→13:58)
--- NOTE | 2017-03-25 04:52 | RADRPT ---
EXAM DATE/TIME: 03/25/2017 04:06 [facility] COMPARISON: CHEST SINGLE AP, March 24, 2017, 4:39. INDICATIONS : Patient is short of breath. MEDICAL HISTORY : Carcinoma, pancreas. SURGICAL HISTORY : Whipple procedure. ENCOUNTER: Subsequent ACUITY: 1 week PAIN SCORE: 0/10 LOCATION: Bilateral chest FINDINGS: Small caliber right chest tube remains present in the lower right chest. Loculated fluid in the upper right chest is stable to slightly increased. Air space consolidation persists in the right lung base . Minimal left basilar opacity stable. No significant pneumothorax. CONCLUSION: 1. Right chest tube without significant pneumothorax. Relatively stable small right basilar pleural e ffusion. Stable to slight increase in loculated fluid upper right hemithorax. Stable right basilar ai rspace disease. Max De La Cruz MD on March 25, 2017 at 4:49 Board Certified Radiologist. This report was verified electronically.
[2017-03-25] MEDS: LIPASE/PROTEASE/AMYLASE (24,000/76,000/120,000) CAP PO SCH ×3 (08:28→18:17)
[2017-03-25] MEDS: VANCOMYCIN 1,000 MG/NS 250 ML IV SCH ×2 (08:28)
[2017-03-25] MEDS: buPROPion HCL 100 MG SUSTAINED RELEASE TAB PO SCH (08:28)
[2017-03-25] MEDS: SODIUM CHLORIDE 0.9% FLUSH 10 ML FLUSH IV FLUSH SCH ×2 (08:29→20:23)
[2017-03-25] MEDS: ACETAMINOPHEN 325 MG TAB PO PRN ×2 (08:29→16:31)
[2017-03-25] MEDS: amLODIPine BESYLATE 5 MG TAB PO SCH (08:29)
[2017-03-25] MEDS: CHLORPHENIR/HYDROCOD LIQUID 8 MG/10 MG/5 ML CUP PO SCH ×2 (08:30→20:23)
--- NOTE | 2017-03-25 13:23 | HHI.PR ---
Subjective Remarks with low grade fever feeling better good po minimal pain to chest tube site Objective Vitals Vital Signs Date Time Temp Pulse Resp B/P Pulse Ox O2 Delivery O2 Flow Rate FiO2 03/25/17 08:40 92 Nasal Cannula 3.00 03/25/17 08:34 81 03/25/17 08:00 100.5 88 22 99/53 91 03/25/17 04:00 98.8 88 18 108/70 92 03/25/17 00:00 100.3 88 17 115/58 92 03/24/17 20:52 92 Nasal Cannula 2.00 03/24/17 20:21 86 03/24/17 20:00 100.5 85 18 115/58 93 03/24/17 16:00 100.0 86 18 110/59 92 I/O 03/24/17 03/24/17 03/24/17 03/25/17 03/25/17 03/25/17 07:00 15:00 23:00 07:00 15:00 23:00 Intake Total 620 ml 1200 ml 1080 ml 780 ml 480 ml Output Total 40 ml 5 ml Balance 580 ml 1200 ml 1075 ml 780 ml 480 ml Intake Oral 480 ml 1200 ml 1080 ml 480 ml 480 ml IV Total 140 ml 300 ml Chest Tube Drainage Total 40 ml 5 ml # Voids 1 5 4 1 # Bowel Movements 1 Result Diagram: 03/23/17 0619 Imaging Last Impressions Chest X-Ray 03/25/17 0000 Signed Impressions: Service Date/Time: Saturday, March 25, 2017 04:06 - CONCLUSION: 1. Right chest tube without significant pneumothorax. Relatively stable small right basilar pleural effusion. Stable to slight increase in loculated fluid upper right hemithorax. Stable right basilar airspace disease. Max De La Cruz MD Chest Tube Insertion 03/22/17 1435 Signed Impressions: Service Date/Time: March 14:19 - CONCLUSION: Uncomplicated chest tube placement as above. Nolan Bryan MD CT Angiography 03/16/17 1156 Signed Impressions: Service Date/Time: Thursday, March 16, 2017 13:05 - CONCLUSION: Large right hemithorax needle thoracentesis Either biliary air or or portal air. CT scan of the abdomen and pelvis is suggested in this patient who has had previous Whipple. Mihai Harper MD FACR Objective Remarks awake and alert, NAD anicteric decreased breath sounds and decrease vocal fremiti- left base to mid- chest tube in place regular rhythm abdomen soft extremities no edema neuro exam- non focal Procedures chest tube placement 03/22 A/P Assessment and Plan 67-year-old female with: Shortness of breath and moderate large right pleural effusion, likely malignant. Chest tube placed 03/16 Dr Coello CTS. Sepsis - possible Empyema- growing S. Aureus in pleural fluid- final C and s not back yet Small Pneumothorax 5% s/p Talc pleurodesis 03/20 Pancreatic cancer with metastasis to the lung, liver, stomach, Whipple procedure [address] Reynolds oncology recently restarted chemo CT Chest reviewed findings discussed with ER PA, patient. S/P Right chest tube insertion by Dr Coello CTS on 03/16/17. Improving. still with > 500 cc fluid draining - Plan for pleurodesis per CTS CXR 03/17 reviewed and discussed with the patient Small 5 mm right apical pneumothorax. Patient is satting well on nasal canula. Oxygen supplied by nasal cannula, keep oxygen saturation more than 92%. She is saturating well on 2 L nasal cannula at this time. Monitor closely. Dilaudid for breakthrough pain increased as patient with more pain. Change norco ro oxycodone as works better per patient. Patient is allergic to morphine. another chest tube still in place continue on IV Vancomycin HTN. -some SBP in the 90 - will hold amlodipine. -start gentle IVF Monitor blood pressure and adjust medications as needed. DVT prophylaxis SCD/teds. Hold on chemical prophylaxis at this time due to chest tube, restart as indicated by CTS Discussed with the patient, nurse Discharge Planning pending improvement and clearance form consultants. Plan for pleurodesis. patient up and ambulating Charlotte Sanchez MD March 25, 2017 13:23
[2017-03-25] MEDS: ENOXAPARIN SODIUM 40 MG/0.4 ML SYRINGE SQ SCH (13:58)
[2017-03-25] MEDS: D5-NS + KCL 20 MEQ INJ 1,000 ML IV SCH (14:09)
[2017-03-25 14:49] LABS: AUTOMATED NEUTROPHIL # 8.4 TH/MM3 (1.8-7.7); BASOPHIL # 0.1 TH/MM3 (0-0.2); BASOPHIL % 0.5 % (0.0-2.0); EOSINOPHIL # 0.3 TH/MM3 (0-0.4); EOSINOPHIL % 2.6 % (0.0-4.0); HEMATOCRIT 29.5 % (35.0-46.0); HEMO FLAGS DIFF FINAL; LYMPH % 10.2 % (9.0-44.0); LYMPHOCYTE # 1.1 TH/MM3 (1.0-4.8); MEAN CORPUSCULAR HEMOGLOBIN 29.2 PG (27.0-34.0); MEAN CORPUSCULAR HGB CONC 31.4 % (32.0-36.0); MONO % 11.4 % (0.0-8.0); NEUT % 75.3 % (16.0-70.0); PLATELET COUNT 472 TH/MM3 (150-450); RED BLOOD COUNT 3.17 MIL/MM3 (4.00-5.30); WHITE BLOOD COUNT 11.1 TH/MM3 (4.0-11.0)
[2017-03-25 15:32] LABS: BICARBONATE 31.8 MEQ/L (21.0-32.0); POTASSIUM 4.1 MEQ/L (3.5-5.1)
--- NOTE | 2017-03-25 15:55 | HHI.IDPN ---
Subjective Subjective Remarks 67 year old female admitted for SOB. Found to have new R pleural effusion Fluid tap, cytology inconclusive for malignancy S/P talc pleurodesis Has been having fevers. Pleural fluid C/S (+) NOtes reviewed D/W RN Not much coming out of her pigtail chest catheter C/S of fluid with MSSA Coughing a lot - dry Still with fevers CXR with increase in loculated fluid, stable infiltrates No rash or itching No N/V, no diarrhea Antibiotics Vancomycin Lines PIV Port - not being used Past Medical History Pancreatic cancer with metastasis to the lung, liver, stomach HTN Past Surgical History Whipple procedure 2014 Lower lip surgery Exploratory lap Cyst removal right buttocks Allergies: Coded Allergies: Morphine (Verified Allergy, Severe, Rash, 03/16/17) Objective . Vital Signs Date Time Temp Pulse Resp B/P Pulse Ox O2 Delivery O2 Flow Rate FiO2 03/25/17 12:00 98.5 81 20 110/57 92 03/25/17 08:40 92 Nasal Cannula 3.00 03/25/17 08:34 81 03/25/17 08:00 100.5 88 22 99/53 91 03/25/17 04:00 98.8 88 18 108/70 92 03/25/17 00:00 100.3 88 17 115/58 92 03/24/17 20:52 92 Nasal Cannula 2.00 03/24/17 20:21 86 03/24/17 20:00 100.5 85 18 115/58 93 03/24/17 16:00 100.0 86 18 110/59 92 03/24/17 03/24/17 03/25/17 15:00 23:00 07:00 Intake Total 1200 ml 1080 ml 780 ml Output Total 5 ml Balance 1200 ml 1075 ml 780 ml Intake Oral 1200 ml 1080 ml 480 ml IV Total 300 ml Chest Tube Drainage Total 5 ml # Voids 5 4 1 # Bowel Movements 1 . Laboratory Tests Test 03/25/17 14:20 White Blood Count 11.1 TH/MM3 Red Blood Count 3.17 MIL/MM3 Hemoglobin 9.3 GM/DL Hematocrit 29.5 % Mean Corpuscular Volume 93.0 FL Mean Corpuscular Hemoglobin 29.2 PG Mean Corpuscular Hemoglobin 31.4 % Concent Red Cell Distribution Width 15.0 % Platelet Count 472 TH/MM3 Mean Platelet Volume 7.6 FL Neutrophils (%) (Auto) 75.3 % Lymphocytes (%) (Auto) 10.2 % Monocytes (%) (Auto) 11.4 % Eosinophils (%) (Auto) 2.6 % Basophils (%) (Auto) 0.5 % Neutrophils # (Auto) 8.4 TH/MM3 Lymphocytes # (Auto) 1.1 TH/MM3 Monocytes # (Auto) 1.3 TH/MM3 Eosinophils # (Auto) 0.3 TH/MM3 Basophils # (Auto) 0.1 TH/MM3 CBC Comment DIFF FINAL Differential Comment Laboratory Tests Test 03/25/17 14:20 Sodium Level 141 MEQ/L Potassium Level 4.1 MEQ/L Chloride Level 103 MEQ/L Carbon Dioxide Level 31.8 MEQ/L Anion Gap 6 MEQ/L Blood Urea Nitrogen 9 MG/DL Creatinine 0.41 MG/DL Estimat Glomerular Filtration 155 ML/MIN Rate Random Glucose 124 MG/DL Calcium Level 8.5 MG/DL Microbiology Date/Time Procedure Status Source Growth 03/23/17 19:07 Aerobic Blood Culture - Preliminary Resulted Blood Peripheral NO GROWTH IN 2 DAYS 03/23/17 19:07 Anaerobic Blood Culture - Preliminary Resulted Blood Peripheral NO GROWTH IN 2 DAYS 03/23/17 19:17 Aerobic Blood Culture - Preliminary Resulted Blood Peripheral NO GROWTH IN 2 DAYS 03/23/17 19:17 Anaerobic Blood Culture - Preliminary Resulted Blood Peripheral NO GROWTH IN 2 DAYS 03/23/17 19:30 Gram Stain - Final Complete Fluid Pleural Fluid 03/23/17 19:30 Body Fluid Culture - Final Complete Staphylococcus Aureus 03/25/17 14:15 Aerobic Blood Culture Received Blood Peripheral Pending 03/25/17 14:15 Anaerobic Blood Culture Received Blood Peripheral Pending 03/25/17 14:20 Aerobic Blood Culture Received Blood Peripheral Pending 03/25/17 14:20 Anaerobic Blood Culture Received Blood Peripheral Pending Imaging Chest X-Ray 03/25/17 0000 Signed Impressions: Service Date/Time: Saturday, March 25, 2017 04:06 - CONCLUSION: 1. Right chest tube without significant pneumothorax. Relatively stable small right basilar pleural effusion. Stable to slight increase in loculated fluid upper right hemithorax. Stable right basilar airspace disease. Max De La Cruz MD Chest X-Ray 03/24/17 0600 Signed Impressions: Service Date/Time: Friday, March 24, 2017 04:39 - CONCLUSION: 1. Small caliber right chest tube with decrease in size of loculated right pleural effusion. Basilar effusions and airspace disease persists. Max De La Cruz MD Physical Exam GENERAL: awake and alert, not in respiratory distress. SKIN: Warm and dry. No generalized rash HEAD: Atraumatic. Normocephalic. No temporal wasting, or tenderness. EYES: [place] conjunctiva. No petechia or hemorrhage. Pupils equal, round and reactive to light. Extraocular movements full and intact. No scleral icterus. No injection or drainage. EARS, NOSE AND THROAT: Nose without bleeding or purulent nasal discharge. No sinus tenderness. Mucous membranes pink and moist. No oral lesions noted. No exudate. No oral thrush. NECK: Trachea midline. Supple and not tender, no meningeal signs CARDIOVASCULAR: Regular rate and rhythm. No murmurs, rubs or gallops heard RESPIRATORY: R anterior CT in place. Port in R upper chest, not accessed, no evidence of infection. Decreased BS R side, but with more air movement compared to yesterday, clear on L. ABDOMEN: Soft, non-tender, nondistended. Has well healed abdominal incision. Bowel sounds present and normoactive. No guarding. No rebound. No organomegaly. EXTREMITIES: No clubbing, cyanosis, or edema.No joint effusion, has good ROM. No calf tenderness. Well perfused and warm. NEUROLOGICAL: Grossly non-focal PSYCHIATRIC: Normal affect, calm and cooperative. LINE: PIV with no evidence of infection. Port not accessed, unremarkable Assessment & Plan Remarks IMPRESSION Sepsis, etiology? new Admitted with R pleural effusion - cytology indeterminate for malignancy - no fluid analysis done on initial tap, underwent talc pleurodesis 03/20 - ?now infected fluid, vs infected on admission, C/S Staph aureus MSSA Pancreatic CA with mets, S/P Whipple 2014 RECOMMENDATION Change Vanco to Ancef ?CT chest since cath not draining much, ?reposition Follow new C/S Monitor temps Follow clinically Explained plan to patient and sister D/W Sydnee Brandon MD March 25, 2017 15:55
[2017-03-25] MEDS ORDERED: HYDROmorphone HCL PF 1 MG/ML VIAL IV PRN (16:00)
[2017-03-25] MEDS: ceFAZolin 2 GM PREMIX 50 ML IV SCH ×2 (16:30→23:42)
[2017-03-25] MEDS: TEMAZEPAM 15 MG CAP PO PRN (23:01)
[2017-03-26] VITALS (8 sets, daily range): BP systolic 96–127; BP diastolic 50–69; PULSE 70–92; RESP 16–19; TEMP 96.4–101.6; O2SAT 91–96
[2017-03-26] MEDS: DOCUSATE SODIUM 100 MG CAP PO SCH ×2 (02:30→12:33)
[2017-03-26] MEDS: ACETAMINOPHEN 325 MG TAB PO PRN ×2 (03:16→15:51)
[2017-03-26] MEDS: D5-NS + KCL 20 MEQ INJ 1,000 ML IV SCH ×2 (03:20→21:34)
[2017-03-26] MEDS ORDERED: PHARMACY ORDERED LAB ONE (07:45)
[2017-03-26] MEDS: CHLORPHENIR/HYDROCOD LIQUID 8 MG/10 MG/5 ML CUP PO SCH ×2 (08:45→21:33)
[2017-03-26] MEDS: LIPASE/PROTEASE/AMYLASE (24,000/76,000/120,000) CAP PO SCH ×3 (08:45→17:32)
[2017-03-26] MEDS: buPROPion HCL 100 MG SUSTAINED RELEASE TAB PO SCH (08:46)
[2017-03-26] MEDS: SODIUM CHLORIDE 0.9% FLUSH 10 ML FLUSH IV FLUSH SCH ×2 (08:46→21:00)
[2017-03-26] MEDS: ceFAZolin 2 GM PREMIX 50 ML IV SCH ×3 (08:46→23:53)
--- NOTE | 2017-03-26 11:36 | RADRPT ---
EXAM DATE/TIME: 03/26/2017 11:07 [facility] COMPARISON: CHEST SINGLE AP, March 22, 2017, 5:05. CT GUIDED CHEST TUBE PLACEMENT RIGHT, March 22, 2017, 14:19. [facility] SINGLE AP, March 25, 2017, 4:06. INDICATIONS : Evaluate for pneumothorax; shortness of breath. MEDICAL HISTORY : Carcinoma, pancreas. SURGICAL HISTORY : Whipple ENCOUNTER: Subsequent ACUITY: 2 weeks PAIN SCORE: 0/10 LOCATION: Bilateral chest FINDINGS: Right chest port is stable in position. Right chest pigtail thoracostomy tube is again noted. There i s apical pleural-parenchymal density which is unchanged on the right. Persistent right base infiltrat e and worsening infiltrate diffusely present in the left perihilar region and left lung base. Visuali zed cardiac contours are grossly stable. CONCLUSION: Developing diffuse left lung infiltrate. Stable findings in the right John Barba MD on March 26, 2017 at 11:32 Board Certified Radiologist. This report was verified electronically.
[2017-03-26] MEDS: ENOXAPARIN SODIUM 40 MG/0.4 ML SYRINGE SQ SCH (12:45)
--- NOTE | 2017-03-26 13:10 | HHI.PR ---
Subjective Remarks pain controlled, + flatus, good po, no nausea or vomiting + pain with deep inspiration, + cough T max 101.4 this am Objective Vitals Vital Signs Date Time Temp Pulse Resp B/P Pulse Ox O2 Delivery O2 Flow Rate FiO2 03/26/17 12:00 96.4 73 16 99/58 93 03/26/17 08:00 98.2 70 17 96/50 96 03/26/17 08:00 Nasal Cannula 3.00 03/26/17 04:00 101.5 88 19 123/69 93 03/26/17 00:00 98.7 79 17 100/59 93 03/25/17 20:27 83 03/25/17 20:20 95 Nasal Cannula 3.00 03/25/17 20:00 98.2 79 18 96/56 95 03/25/17 18:28 97.5 03/25/17 16:00 101.6 91 18 120/58 90 I/O 03/25/17 03/25/17 03/25/17 03/26/17 03/26/17 03/26/17 07:00 15:00 23:00 07:00 15:00 23:00 Intake Total 780 ml 1705 ml 1880 ml 800 ml 50 ml Output Total 0 ml 0 ml Balance 780 ml 1705 ml 1880 ml 800 ml 50 ml Intake Oral 480 ml 1440 ml 1320 ml 240 ml IV Total 300 ml 265 ml 560 ml 560 ml 50 ml Chest Tube Drainage Total 0 ml 0 ml # Voids 1 3 2 1 # Bowel Movements 1 Result Diagram: 03/25/17 1420 03/25/17 1420 Imaging Last Impressions Chest X-Ray 03/26/17 0000 Signed Impressions: Service Date/Time: Sunday, March 26, 2017 11:07 - CONCLUSION: Developing diffuse left lung infiltrate. Stable findings in the right John Barba MD Chest Tube Insertion 03/22/17 1435 Signed Impressions: Service Date/Time: March 14:19 - CONCLUSION: Uncomplicated chest tube placement as above. Nolan Bryan MD CT Angiography 03/16/17 1156 Signed Impressions: Service Date/Time: Thursday, March 16, 2017 13:05 - CONCLUSION: Large right hemithorax needle thoracentesis Either biliary air or or portal air. CT scan of the abdomen and pelvis is suggested in this patient who has had previous Whipple. Mihai Harper MD FACR Objective Remarks awake and alert, NAD anicteric decreased breath sounds and decrease vocal -left base to mid- chest tube in place regular rhythm abdomen soft extremities no edema neuro exam- non focal Procedures chest tube placement 03/22 A/P Assessment and Plan 67-year-old female with: Shortness of breath and moderate large right pleural effusion, likely malignant. Chest tube placed 03/16 Dr Coello CTS. Sepsis - possible Empyema- growing S. Aureus Small Pneumothorax 5% S/P Talc pleurodesis 03/20 Pancreatic cancer with metastasis to the lung, liver, stomach, Whipple procedure [address] Reynolds oncology recently restarted chemo Chest tubes management per CTS Oxygen supplied by nasal cannula, keep oxygen saturation more than 92%. She is saturating well on 2 L nasal cannula at this time. Monitor closely. Dilaudid for breakthrough pain increased as patient with more pain. Change norco ro oxycodone as works better per patient. Patient is allergic to morphine. On IV ancef- Dr. Traylor ff still with intermittent fever- HTN. -some SBP in the 90 - will hold amlodipine. -gentle IVF Monitor blood pressure and adjust medications as needed. DVT prophylaxis SCD/teds. Hold on chemical prophylaxis at this time due to chest tube, restart as indicated by CTS Discussed with the patient, nurse Charlotte Sanchez MD March 26, 2017 13:10
--- NOTE | 2017-03-26 14:16 | RADRPT ---
EXAM DATE/TIME: 03/26/2017 12:48 [facility] COMPARISON: CT PULMONARY ANGIOGRAM, March 16, 2017, 13:05. CHEST SINGLE AP, March 26, 2017, 11:07. INDICATIONS : Chest tube removal. MEDICAL HISTORY : Carcinoma, pancreas. SURGICAL HISTORY : chest tube, whipple surgery. ENCOUNTER: Initial ACUITY: 1 week PAIN SCORE: 0/10 LOCATION: Bilateral chest FINDINGS: Portable upright AP view of the chest demonstrates a normal-sized cardiac silhouette. Right chest wal l [id number] remains present. A right chest tube is no longer present and no pneumothorax is visua lized. There is an opacity at the apex of the right hemithorax. There is bilateral airspace consolida tion similar to the prior study. CONCLUSION: 1. Right chest tube has been removed. No pneumothorax is visualized. 2. Stable bilateral airspace consolidation. 3. Stable right apical opacity. John Bragg MD on March 26, 2017 at 14:13 Board Certified Radiologist. This report was verified electronically.
--- NOTE | 2017-03-26 15:25 | PD.CAR.PN ---
CVT Progress Note Subjective/Hospital Course: Doing well. Some fluid leaking around tube saturating the dressing. 03/18/17 Drained > 700 ml over 24 hrs. Doing well, no complaints 03/19 pain controlled, drained 110cc/ 12 hrs chest tube to suction, will plan on talc pleurodesis in am at bedside 03/20/17 talc pleurodesis at beside per Dr Yadav 03/21 cxr noted slightly larger right apical ptx 2.0cm / pt asymptomatic low grade temp last pm, pt to use IS had 350cc from chest tube / 12 hrs / serous drainage cytology pending 03/22 had 350cc drainage yesterday in chest tube/ no further drainage per nursing over the [facility] shift lead cxr shows fluid collection in right apical pneumothorax cavity will send for CT guided drainage/ pig tail cath and remove right anterior chest tube in am 03/23 large bore anterior chest tube removed without difficulty Vaseline occlusive dressing applied for CXR in am / pigtail cath in place right upper chest wall/ drained 300cc serous fluid after removal 03/26 now has small effusion on left right pig tail cath out holes from the cath where outside chest pigtail cath removed without difficulty Objective: GENERAL: SKIN: Warm and dry.incision intact from prior chest tube below right breast right upper chest tube removed without diffiuclty HEAD: Normocephalic. EYES: No scleral icterus. No injection or drainage. NECK: Supple, trachea midline. No JVD or lymphadenopathy. CARDIOVASCULAR: Regular rate and rhythm without murmurs, gallops, or rubs. RESPIRATORY: Breath sounds more diminished in right . No accessory muscle use. GASTROINTESTINAL: Abdomen soft, non-tender, nondistended. MUSCULOSKELETAL: No cyanosis, or edema. BACK: Nontender without obvious deformity. No CVA tenderness. Vital Signs Date Time Temp Pulse Resp B/P Pulse Ox O2 Delivery O2 Flow Rate FiO2 03/26/17 12:00 96.4 73 16 99/58 93 03/26/17 08:00 98.2 70 17 96/50 96 03/26/17 08:00 Nasal Cannula 3.00 03/26/17 04:00 101.5 88 19 123/69 93 03/26/17 00:00 98.7 79 17 100/59 93 03/25/17 20:27 83 03/25/17 20:20 95 Nasal Cannula 3.00 03/25/17 20:00 98.2 79 18 96/56 95 03/25/17 18:28 97.5 03/25/17 16:00 101.6 91 18 120/58 90 Result Diagram: 03/25/17 1420 03/25/17 1420 (1) 2) Pleural effusion on right/ s/p chest tube placement Plan: s/p talc pleurodesis f/u CXR in am path inconclusive for malignant cells Karime Herrera March 26, 2017 15:25
[2017-03-26] MEDS: TEMAZEPAM 15 MG CAP PO PRN (22:30)
[2017-03-27] VITALS: BP 110/65; PULSE 87; RESP 16; TEMP 99.9; O2SAT 90
[2017-03-27] MEDS: DOCUSATE SODIUM 100 MG CAP PO SCH ×3 (02:30→23:50)
[2017-03-27 05:00] VITALS: BP 116/59; PULSE 81; RESP 16; TEMP 98.9; O2SAT 90
[2017-03-27 08:00] VITALS: BP 113/62; PULSE 75; RESP 20; TEMP 98.5; O2SAT 91
[2017-03-27] MEDS: D5-NS + KCL 20 MEQ INJ 1,000 ML IV SCH ×2 (08:24→22:42)
[2017-03-27] MEDS: LIPASE/PROTEASE/AMYLASE (24,000/76,000/120,000) CAP PO SCH ×3 (08:58→18:14)
[2017-03-27] MEDS: buPROPion HCL 100 MG SUSTAINED RELEASE TAB PO SCH (08:58)
[2017-03-27] MEDS: SODIUM CHLORIDE 0.9% FLUSH 10 ML FLUSH IV FLUSH SCH ×2 (08:58→23:49)
[2017-03-27] MEDS: CHLORPHENIR/HYDROCOD LIQUID 8 MG/10 MG/5 ML CUP PO SCH ×2 (08:58→23:48)
[2017-03-27] MEDS: ceFAZolin 2 GM PREMIX 50 ML IV SCH ×3 (08:59→23:49)
--- NOTE | 2017-03-27 10:11 | HHI.IDPN ---
Subjective Subjective Remarks 67 year old female admitted for SOB. Found to have new R pleural effusion Fluid tap, cytology inconclusive for malignancy S/P talc pleurodesis 03/20 03/22 CXR showed loculated R upper lung effusion - had placement of pigtail cath Has been having fevers since 03/17, 100+; higher temp spike since 03/23 Last high fever yesterday at 4 pm Pigtail cath removed yesterday, was coming out No new complaints Not SOB Coughing seems less CXR smaller opacity in R apex, other basilar infiltrates/opacities stable BC negative Pleural fluid C/S MSSA No N/V, no diarrhea Antibiotics Ancef Lines PIV Port - not being used Past Medical History Pancreatic cancer with metastasis to the lung, liver, stomach HTN Past Surgical History Whipple procedure 2014 Lower lip surgery Exploratory lap Cyst removal right buttocks Allergies: Coded Allergies: Morphine (Verified Allergy, Severe, Rash, 03/16/17) Objective . Vital Signs Date Time Temp Pulse Resp B/P Pulse Ox O2 Delivery O2 Flow Rate FiO2 03/27/17 08:00 98.5 75 20 113/62 91 03/27/17 06:53 18 03/27/17 05:00 98.9 81 16 116/59 90 03/27/17 00:00 99.9 87 16 110/65 90 03/26/17 21:33 90 Nasal Cannula 2.00 03/26/17 21:15 99.0 82 16 109/59 91 03/26/17 20:20 79 03/26/17 19:21 98.0 03/26/17 16:00 101.6 92 16 127/59 92 03/26/17 12:00 96.4 73 16 99/58 93 03/26/17 03/26/17 03/27/17 14:59 22:59 06:59 Intake Total 1010 ml 560 ml 480 ml Balance 1010 ml 560 ml 480 ml Intake Oral 960 ml 480 ml IV Total 50 ml 560 ml # Voids 3 2 # Bowel Movements 1 . Laboratory Tests Test 03/25/17 14:20 White Blood Count 11.1 TH/MM3 Red Blood Count 3.17 MIL/MM3 Hemoglobin 9.3 GM/DL Hematocrit 29.5 % Mean Corpuscular Volume 93.0 FL Mean Corpuscular Hemoglobin 29.2 PG Mean Corpuscular Hemoglobin 31.4 % Concent Red Cell Distribution Width 15.0 % Platelet Count 472 TH/MM3 Mean Platelet Volume 7.6 FL Neutrophils (%) (Auto) 75.3 % Lymphocytes (%) (Auto) 10.2 % Monocytes (%) (Auto) 11.4 % Eosinophils (%) (Auto) 2.6 % Basophils (%) (Auto) 0.5 % Neutrophils # (Auto) 8.4 TH/MM3 Lymphocytes # (Auto) 1.1 TH/MM3 Monocytes # (Auto) 1.3 TH/MM3 Eosinophils # (Auto) 0.3 TH/MM3 Basophils # (Auto) 0.1 TH/MM3 CBC Comment DIFF FINAL Differential Comment Laboratory Tests Test 03/25/17 14:20 Sodium Level 141 MEQ/L Potassium Level 4.1 MEQ/L Chloride Level 103 MEQ/L Carbon Dioxide Level 31.8 MEQ/L Anion Gap 6 MEQ/L Blood Urea Nitrogen 9 MG/DL Creatinine 0.41 MG/DL Estimat Glomerular Filtration 155 ML/MIN Rate Random Glucose 124 MG/DL Calcium Level 8.5 MG/DL Microbiology Date/Time Procedure Status Source Growth 03/25/17 14:15 Aerobic Blood Culture - Preliminary Resulted Blood Peripheral NO GROWTH IN 1 DAY 03/25/17 14:15 Anaerobic Blood Culture - Preliminary Resulted Blood Peripheral NO GROWTH IN 1 DAY 03/25/17 14:20 Aerobic Blood Culture - Preliminary Resulted Blood Peripheral NO GROWTH IN 1 DAY 03/25/17 14:20 Anaerobic Blood Culture - Preliminary Resulted Blood Peripheral NO GROWTH IN 1 DAY Imaging Chest X-Ray 03/26/17 1300 Signed Impressions: Service Date/Time: Sunday, March 26, 2017 12:48 - CONCLUSION: 1. Right chest tube has been removed. No pneumothorax is visualized. 2. Stable bilateral airspace consolidation. 3. Stable right apical opacity. John Bragg MD Chest X-Ray 03/26/17 0000 Signed Impressions: Service Date/Time: Sunday, March 26, 2017 11:07 - CONCLUSION: Developing diffuse left lung infiltrate. Stable findings in the right John Barba MD Chest X-Ray 03/25/17 0000 Signed Impressions: Service Date/Time: Saturday, March 25, 2017 04:06 - CONCLUSION: 1. Right chest tube without significant pneumothorax. Relatively stable small right basilar pleural effusion. Stable to slight increase in loculated fluid upper right hemithorax. Stable right basilar airspace disease. Max De La Cruz MD Chest X-Ray 03/24/17 0600 Signed Impressions: Service Date/Time: Friday, March 24, 2017 04:39 - CONCLUSION: 1. Small caliber right chest tube with decrease in size of loculated right pleural effusion. Basilar effusions and airspace disease persists. Max De La Cruz MD Physical Exam GENERAL: awake and alert, not in respiratory distress. SKIN: Warm and dry. No generalized rash HEAD: Atraumatic. Normocephalic. No temporal wasting, or tenderness. EYES: [place] conjunctiva. No petechia or hemorrhage. No scleral icterus. No injection or drainage. EARS, NOSE AND THROAT: Nose without bleeding or purulent nasal discharge. Mucous membranes pink and moist. No oral lesions noted. NECK: Trachea midline. Supple and not tender, no meningeal signs CARDIOVASCULAR: Regular rate and rhythm. No murmurs, rubs or gallops heard RESPIRATORY: Scattered rales. Decreased BS at bases, and in R upper lung field. Better air movement on R side. ABDOMEN: Soft, non-tender, nondistended. Has well healed abdominal incision. Bowel sounds present and normoactive. No guarding. No rebound. No organomegaly. EXTREMITIES: No clubbing, cyanosis, or edema.No joint effusion, has good ROM. No calf tenderness. Well perfused and warm. NEUROLOGICAL: Grossly non-focal PSYCHIATRIC: Normal affect, calm and cooperative. LINE: PIV with no evidence of infection. Port not accessed, unremarkable Assessment & Plan Remarks IMPRESSION Sepsis, etiology? new Admitted with R pleural effusion - cytology indeterminate for malignancy - no fluid analysis done on initial tap, underwent talc pleurodesis 03/20 Pleural fluid from loculated R apical fluid, C/S MSSA Fevers, ?due to fluid, ?PNA (has some infiltrates now also on L side) Pancreatic CA with mets, S/P Whipple 2013 RECOMMENDATION Continue Ancef Add Levaquin Repeat CBC Monitor temps Monitor progress D/W Dr Mariana Yadav (CTS) - will do CT chest to further evaluate her effusions in light of (+) C/S and fevers; If fluid a lot, will consider retap and drainage of fluid and send for new C/S Spent about 45 minutes revieweing all her radiology films, labs and cultures, discussing care with [employer] RESEARCH ENGINEER and CTS, critical thinking and decision making Dimayuga,Sydnee G MD March 27, 2017 10:11
--- NOTE | 2017-03-27 11:56 | RADRPT ---
EXAM DATE/TIME: 03/27/2017 11:15 [facility] COMPARISON: CT GUIDED CHEST TUBE PLACEMENT RIGHT, March 22, 2017, 14:19. CT PULMONARY ANGIOGRAM, March 16, 2017, 13: 05. INDICATIONS : Evaluate Pleural Effusion. RADIATION DOSE: 3.47 CTDIvol (mGy) MEDICAL HISTORY : Hypertension. Carcinoma, pancreas. Mets, lung, liver and stomach SURGICAL HISTORY : Whipple ENCOUNTER: Initial ACUITY: 1 day PAIN SCALE: 0/10 LOCATION: TECHNIQUE: Volumetric scanning of the chest was performed. Using automated exposure control and adjustment of t he mA and/or kV according to patient size, radiation dose was kept as low as reasonably achievable to obtain optimal diagnostic quality images. FINDINGS: LUNGS: No chest tubes are present. There is a groundglass attenuation throughout most of the left upper lobe and subtle groundglass attenuation in the superior aspect of the left lower lobe. In the right lung there is groundglass attenuation as well as consolidation and/or atelectasis inferiorly. Loculated pl eural effusions are present. No pneumothorax is present. PLEURAE: There is pleural fluid present in that is loculated superiorly in the apex of the right hemithorax as well as loculated in 2-3 different locations more inferiorly. There are areas of linear high density along the pleural surface, new since the prior study. No left pleural fluid is present. MEDIASTINUM: The heart and great vessels demonstrate no acute abnormality. There is an [id number] distal tip a t the cavoatrial junction. There is no mediastinal or hilar lymphadenopathy. AXILLAE: Within normal limits. No lymphadenopathy. MUSCULOSKELETAL: There are degenerative changes of the thoracic spine. No lytic or blastic lesion is seen. MISCELLANEOUS: The visualized upper abdominal organs demonstrate no acute abnormality. CONCLUSION: 1. There are loculated pleural fluid collections in the upper, mid, and inferior right hemithorax. Th ere is new linear high density material on the pleural surface (both visceral and parietal) inferiorl y and posteriorly. This is from uncertain etiology since it was not present previously. Question whet her there has been any attempt at pleurodesis. 2. In the right lung there are areas of atelectasis as well as airspace consolidation adjacent to the pleural fluid collections. In the left lung there is groundglass opacity in the left upper and left lower lobe. John Bragg MD on March 27, 2017 at 11:48 Board Certified Radiologist. This report was verified electronically.
[2017-03-27 12:00] VITALS: BP 118/71; PULSE 84; RESP 20; TEMP 100.2; O2SAT 91
--- NOTE | 2017-03-27 13:09 | HHI.FF ---
Face to Face Verification Diagnosis: (1) Pleural effusion on right Physical Therapy Order: Evaluate and Treat, Improve ambulation Occupational Therapy Order: Evaluate and Treat, Improve ADL Home Health Nursing Order: Medical education Signs/symptoms of disease process Oxygen administration education Medication education-adverse effect Wound care and dressing changes I have seen patient Rosario Zhou on 03/27/17. My clinical findings support the need for the requested home health care services because: Ltd mobility - disease progression Patient has SOB Deconditioned w/ increased weakness Limited ability to care for self Need for psychosocial assistance I certify that my clinical findings support that this patient is homebound because: Need for psychosocial assistance Charlotte Sanchez MD March 27, 2017 13:09
[2017-03-27] MEDS: LEVOFLOXACIN 750 MG TAB PO SCH (13:49)
[2017-03-27] MEDS: ENOXAPARIN SODIUM 40 MG/0.4 ML SYRINGE SQ SCH (13:49)
[2017-03-27] MEDS: ACETAMINOPHEN 325 MG TAB PO PRN (13:49)
--- NOTE | 2017-03-27 14:08 | HHI.PR ---
Subjective Remarks up and ambulating, minimal dry cough Objective Vitals Vital Signs Date Time Temp Pulse Resp B/P Pulse Ox O2 Delivery O2 Flow Rate FiO2 03/27/17 12:00 100.2 84 20 118/71 91 03/27/17 08:00 1.00 03/27/17 08:00 98.5 75 20 113/62 91 03/27/17 06:53 18 03/27/17 05:00 98.9 81 16 116/59 90 03/27/17 00:00 99.9 87 16 110/65 90 03/26/17 21:33 90 Nasal Cannula 2.00 03/26/17 21:15 99.0 82 16 109/59 91 03/26/17 20:20 79 03/26/17 19:21 98.0 03/26/17 16:00 101.6 92 16 127/59 92 I/O 03/26/17 03/26/17 03/26/17 03/27/17 03/27/17 03/27/17 07:00 15:00 23:00 07:00 15:00 23:00 Intake Total 800 ml 1010 ml 560 ml 480 ml Output Total 0 ml Balance 800 ml 1010 ml 560 ml 480 ml Intake Oral 240 ml 960 ml 480 ml IV Total 560 ml 50 ml 560 ml Chest Tube Drainage Total 0 ml # Voids 1 3 2 # Bowel Movements 1 Result Diagram: 03/25/17 1420 03/25/17 1420 Imaging Last Impressions Chest CT 03/27/17 0000 Signed Impressions: Service Date/Time: Monday, March 27, 2017 11:15 - CONCLUSION: 1. There are loculated pleural fluid collections in the upper, mid, and inferior right hemithorax. There is new linear high density material on the pleural surface (both visceral and parietal) inferiorly and posteriorly. This is from uncertain etiology since it was not present previously. Question whether there has been any attempt at pleurodesis. 2. In the right lung there are areas of atelectasis as well as airspace consolidation adjacent to the pleural fluid collections. In the left lung there is groundglass opacity in the left upper and left lower lobe. John Bragg MD Chest X-Ray 03/26/17 1300 Signed Impressions: Service Date/Time: Sunday, March 26, 2017 12:48 - CONCLUSION: 1. Right chest tube has been removed. No pneumothorax is visualized. 2. Stable bilateral airspace consolidation. 3. Stable right apical opacity. John Bragg MD Chest Tube Insertion 03/22/17 1435 Signed Impressions: Service Date/Time: March 14:19 - CONCLUSION: Uncomplicated chest tube placement as above. Nolan Bryan MD CT Angiography 03/16/17 1156 Signed Impressions: Service Date/Time: Thursday, March 16, 2017 13:05 - CONCLUSION: Large right hemithorax needle thoracentesis Either biliary air or or portal air. CT scan of the abdomen and pelvis is suggested in this patient who has had previous Whipple. Mihai Harper MD FACR Objective Remarks awake and alert, NAD anicteric better breath sounds and decrease vocal -left base to mid- chest tube in place regular rhythm abdomen soft extremities no edema neuro exam- non focal Procedures chest tube placement 03/22 A/P Assessment and Plan 67-year-old female with: Shortness of breath and moderate large right pleural effusion, likely malignant. Chest tube placed 03/16 Dr Coello CTS. Sepsis - possible Empyema- growing S. Aureus in pleural fluid- final C and s not back yet Small Pneumothorax 5% s/p Talc pleurodesis 03/20 Pancreatic cancer with metastasis to the lung, liver, stomach, Whipple procedure [address] Reynolds oncology recently restarted chemo CT Chest reviewed findings discussed with ER PA, patient. S/P Right chest tube insertion by Dr Coello CTS on 03/16/17. Improving. still with > 500 cc fluid draining - Plan for pleurodesis per CTS CXR 03/17 reviewed and discussed with the patient Small 5 mm right apical pneumothorax. Patient is satting well on nasal canula. Oxygen supplied by nasal cannula, keep oxygen saturation more than 92%. She is saturating well on 2 L nasal cannula at this time. Monitor closely. Dilaudid for breakthrough pain increased as patient with more pain. Change norco ro oxycodone as works better per patient. Patient is allergic to morphine. chest tube removed 03/26 no chest tubes in place continue on IV Vancomycin CT of the chest resulted- will d/w with Dr Traylor HTN. -some SBP in the 90 - will hold amlodipine. -start gentle IVF Monitor blood pressure and adjust medications as needed. DVT prophylaxis SCD/teds. Hold on chemical prophylaxis at this time due to chest tube, restart as indicated by CTS Discharge Planning pending improvement and clearance form consultants. Plan for pleurodesis. patient up and ambulating Charlotte Sanchez MD March 27, 2017 14:08
--- NOTE | 2017-03-27 15:10 | PD.CAR.PN ---
CVT Progress Note Subjective/Hospital Course: Doing well. Some fluid leaking around tube saturating the dressing. 03/18/17 Drained > 700 ml over 24 hrs. Doing well, no complaints 03/19 pain controlled, drained 110cc/ 12 hrs chest tube to suction, will plan on talc pleurodesis in am at bedside 03/20/17 talc pleurodesis at beside per Dr Yadav 03/21 cxr noted slightly larger right apical ptx 2.0cm / pt asymptomatic low grade temp last pm, pt to use IS had 350cc from chest tube / 12 hrs / serous drainage cytology pending 03/22 had 350cc drainage yesterday in chest tube/ no further drainage per nursing over the awake overnight counselor cxr shows fluid collection in right apical pneumothorax cavity will send for CT guided drainage/ pig tail cath and remove right anterior chest tube in am 03/23 large bore anterior chest tube removed without difficulty Vaseline occlusive dressing applied for CXR in am / pigtail cath in place right upper chest wall/ drained 300cc serous fluid after removal 03/26 now has small effusion on left right pig tail cath out holes from the cath where outside chest pigtail cath removed without difficulty 03/27 cxr noted no PTX ID following for antibiotics ok to shower steri strip in place to right chest tube site no need for f/u in office/ will see Objective: GENERAL: SKIN: Warm and dry. incision intact right upper chest / with steri strips HEAD: Normocephalic. EYES: No scleral icterus. No injection or drainage. NECK: Supple, trachea midline. No JVD or lymphadenopathy. CARDIOVASCULAR: Regular rate and rhythm without murmurs, gallops, or rubs. RESPIRATORY: Breath sounds equal bilaterally. No accessory muscle use. GASTROINTESTINAL: Abdomen soft, non-tender, nondistended. MUSCULOSKELETAL: No cyanosis, or edema. BACK: Nontender without obvious deformity. No CVA tenderness. Vital Signs Date Time Temp Pulse Resp B/P Pulse Ox O2 Delivery O2 Flow Rate FiO2 03/27/17 12:00 100.2 84 20 118/71 91 03/27/17 08:00 1.00 03/27/17 08:00 98.5 75 20 113/62 91 03/27/17 06:53 18 03/27/17 05:00 98.9 81 16 116/59 90 03/27/17 00:00 99.9 87 16 110/65 90 03/26/17 21:33 90 Nasal Cannula 2.00 03/26/17 21:15 99.0 82 16 109/59 91 03/26/17 20:20 79 03/26/17 19:21 98.0 03/26/17 16:00 101.6 92 16 127/59 92 Result Diagram: 03/25/17 1420 03/25/17 1420 (1) 2) Pleural effusion on right/ s/p chest tube placement Plan: s/p talc pleurodesis f/u CXR neg for PTX path inconclusive for malignant cells ID following/ will see Karime Suárez March 27, 2017 15:10
[2017-03-27 16:00] VITALS: BP 97/61; PULSE 82; RESP 20; TEMP 97.7; O2SAT 93
[2017-03-27 20:45] VITALS: BP 105/57; PULSE 78; RESP 16; TEMP 99.3; O2SAT 91
[2017-03-27] MEDS: TEMAZEPAM 15 MG CAP PO PRN (23:48)
[2017-03-28] VITALS (7 sets, daily range): BP systolic 103–121; BP diastolic 56–77; PULSE 76–86; RESP 16–20; TEMP 98.1–99.8; O2SAT 90–95
[2017-03-28 06:40] LABS: AUTOMATED NEUTROPHIL # 6.9 TH/MM3 (1.8-7.7); BASOPHIL % 0.5 % (0.0-2.0); EOSINOPHIL # 0.3 TH/MM3 (0-0.4); EOSINOPHIL % 3.6 % (0.0-4.0); HEMO FLAGS DIFF FINAL; LYMPH % 12.7 % (9.0-44.0); LYMPHOCYTE # 1.2 TH/MM3 (1.0-4.8); MEAN CELL VOLUME 91.4 FL (80.0-100.0); MEAN CORPUSCULAR HEMOGLOBIN 29.8 PG (27.0-34.0); MEAN CORPUSCULAR HGB CONC 32.6 % (32.0-36.0); MONO % 10.9 % (0.0-8.0); NEUT % 72.3 % (16.0-70.0); PLATELET COUNT 532 TH/MM3 (150-450); RED BLOOD COUNT 2.95 MIL/MM3 (4.00-5.30); RED CELL DISTRIBUTION WIDTH 15.5 % (11.6-17.2); WHITE BLOOD COUNT 9.5 TH/MM3 (4.0-11.0)
[2017-03-28] MEDS: ceFAZolin 2 GM PREMIX 50 ML IV SCH (08:00)
[2017-03-28] MEDS: buPROPion HCL 100 MG SUSTAINED RELEASE TAB PO SCH (08:27)
[2017-03-28] MEDS: LEVOFLOXACIN 750 MG TAB PO SCH (08:28)
[2017-03-28] MEDS: CHLORPHENIR/HYDROCOD LIQUID 8 MG/10 MG/5 ML CUP PO SCH ×2 (08:29→20:14)
[2017-03-28] MEDS: SODIUM CHLORIDE 0.9% FLUSH 10 ML FLUSH IV FLUSH SCH ×2 (08:30→20:14)
[2017-03-28] MEDS: LIPASE/PROTEASE/AMYLASE (24,000/76,000/120,000) CAP PO SCH ×3 (09:30→17:30)
--- NOTE | 2017-03-28 11:05 | HHI.PR ---
Subjective Remarks patient feeling better still does have cough with deep inspiration- trying best effort with deep inspiration no diarrhea T down Objective Vitals Vital Signs Date Time Temp Pulse Resp B/P Pulse Ox O2 Delivery O2 Flow Rate FiO2 03/28/17 08:30 Nasal Cannula 1.00 03/28/17 07:50 98.3 80 20 121/77 90 03/28/17 05:00 99.5 77 16 119/63 91 03/28/17 01:57 18 03/28/17 00:00 99.8 86 16 113/68 92 03/27/17 23:49 Nasal Cannula 1.00 03/27/17 20:45 99.3 78 16 105/57 91 03/27/17 16:00 97.7 82 20 97/61 93 03/27/17 12:00 100.2 84 20 118/71 91 I/O 03/27/17 03/27/17 03/27/17 03/28/17 03/28/17 03/28/17 06:59 14:59 22:59 06:59 14:59 22:59 Intake Total 480 ml 960 ml 480 ml Balance 480 ml 960 ml 480 ml Intake Oral 480 ml 960 ml 480 ml # Voids 2 3 2 # Bowel Movements 1 Result Diagram: 03/28/17 0540 03/25/17 1420 Imaging Last Impressions Chest CT 03/27/17 0000 Signed Impressions: Service Date/Time: Monday, March 27, 2017 11:15 - CONCLUSION: 1. There are loculated pleural fluid collections in the upper, mid, and inferior right hemithorax. There is new linear high density material on the pleural surface (both visceral and parietal) inferiorly and posteriorly. This is from uncertain etiology since it was not present previously. Question whether there has been any attempt at pleurodesis. 2. In the right lung there are areas of atelectasis as well as airspace consolidation adjacent to the pleural fluid collections. In the left lung there is groundglass opacity in the left upper and left lower lobe. John Bragg MD Chest X-Ray 03/26/17 1300 Signed Impressions: Service Date/Time: Sunday, March 26, 2017 12:48 - CONCLUSION: 1. Right chest tube has been removed. No pneumothorax is visualized. 2. Stable bilateral airspace consolidation. 3. Stable right apical opacity. John Bragg MD Chest Tube Insertion 03/22/17 1435 Signed Impressions: Service Date/Time: March 14:19 - CONCLUSION: Uncomplicated chest tube placement as above. Nolan Bryan MD CT Angiography 03/16/17 1156 Signed Impressions: Service Date/Time: Thursday, March 16, 2017 13:05 - CONCLUSION: Large right hemithorax needle thoracentesis Either biliary air or or portal air. CT scan of the abdomen and pelvis is suggested in this patient who has had previous Whipple. Mihai Harper MD FACR Objective Remarks awake and alert, NAD anicteric better breath sounds, previous chest tube sites- dry, no erythema regular rhythm abdomen soft extremities no edema neuro exam- non focal Procedures chest tube placement 03/22 A/P Assessment and Plan 67-year-old female with: Shortness of breath and moderate large right pleural effusion, likely malignant. Chest tube placed 03/16 Dr Coello CTS. Sepsis - possible Empyema- growing S. Aureus in pleural fluid- final C and s not back yet Small Pneumothorax 5% s/p Talc pleurodesis 03/20 Pancreatic cancer with metastasis to the lung, liver, stomach, Whipple procedure [address] Reynolds oncology recently restarted chemo CT Chest reviewed findings discussed with ER PA, patient. S/P Right chest tube insertion by Dr Coello CTS on 03/16/17. Improving. still with > 500 cc fluid draining - Plan for pleurodesis per CTS CXR 03/17 reviewed and discussed with the patient Small 5 mm right apical pneumothorax. Patient is satting well on nasal canula. Oxygen supplied by nasal cannula, keep oxygen saturation more than 92%. She is saturating well on 2 L nasal cannula at this time. Monitor closely. Dilaudid for breakthrough pain increased as patient with more pain. Change norco ro oxycodone as works better per patient. Patient is allergic to morphine. chest tube removed 03/26 no chest tubes in place CT of the chest resulted-- reviewed- will d/w ID On IV ancef and po Levaquin HTN. -some SBP in the 90- better readings - will hold amlodipine. Monitor blood pressure and adjust medications as needed. DVT prophylaxis SCD/teds. Hold on chemical prophylaxis at this time due to chest tube, restart as indicated by CTS Discharge Planning pending improvement and clearance form consultants. Plan for pleurodesis. patient up and ambulating Charlotte Sanchez MD March 28, 2017 11:05
[2017-03-28] MEDS: ENOXAPARIN SODIUM 40 MG/0.4 ML SYRINGE SQ SCH (12:33)
[2017-03-28] MEDS: D5-NS + KCL 20 MEQ INJ 1,000 ML IV SCH (13:00)
--- NOTE | 2017-03-28 14:01 | HHI.IDPN ---
Subjective Subjective Remarks 67 year old female admitted for SOB. Found to have new R pleural effusion Fluid tap, cytology inconclusive for malignancy S/P talc pleurodesis 03/20 03/22 CXR showed loculated R upper lung effusion - had placement of pigtail cath Has been having fevers since 03/17, 100+; higher temp spike since 03/23 Last high fever yesterday at 4 pm Pigtail cath removed 03/26. Temps better today Low grade temp, last one 03/[address] chest with loculated multiple effusions - no gas in any of the effusions, also with ramez infiltrates Occ coughing, better No CP, not SOB No N/V No diarrhea Antibiotics Ancef Levaquin Lines PIV Port - not being used Past Medical History Pancreatic cancer with metastasis to the lung, liver, stomach HTN Past Surgical History Whipple procedure 2014 Lower lip surgery Exploratory lap Cyst removal right buttocks Allergies: Coded Allergies: Morphine (Verified Allergy, Severe, Rash, 03/16/17) Objective . Vital Signs Date Time Temp Pulse Resp B/P Pulse Ox O2 Delivery O2 Flow Rate FiO2 03/28/17 11:50 98.1 80 20 106/66 94 03/28/17 08:30 Nasal Cannula 1.00 03/28/17 07:50 98.3 80 20 121/77 90 03/28/17 05:00 99.5 77 16 119/63 91 03/28/17 01:57 18 03/28/17 00:00 99.8 86 16 113/68 92 03/27/17 23:49 Nasal Cannula 1.00 03/27/17 20:45 99.3 78 16 105/57 91 03/27/17 16:00 97.7 82 20 97/61 93 03/27/17 03/27/17 03/28/17 14:59 22:59 06:59 Intake Total 960 ml 480 ml Balance 960 ml 480 ml Intake Oral 960 ml 480 ml # Voids 3 2 # Bowel Movements 1 . Laboratory Tests Test 03/28/17 05:40 White Blood Count 9.5 TH/MM3 Red Blood Count 2.95 MIL/MM3 Hemoglobin 8.8 GM/DL Hematocrit 27.0 % Mean Corpuscular Volume 91.4 FL Mean Corpuscular Hemoglobin 29.8 PG Mean Corpuscular Hemoglobin 32.6 % Concent Red Cell Distribution Width 15.5 % Platelet Count 532 TH/MM3 Mean Platelet Volume 7.8 FL Neutrophils (%) (Auto) 72.3 % Lymphocytes (%) (Auto) 12.7 % Monocytes (%) (Auto) 10.9 % Eosinophils (%) (Auto) 3.6 % Basophils (%) (Auto) 0.5 % Neutrophils # (Auto) 6.9 TH/MM3 Lymphocytes # (Auto) 1.2 TH/MM3 Monocytes # (Auto) 1.0 TH/MM3 Eosinophils # (Auto) 0.3 TH/MM3 Basophils # (Auto) 0.0 TH/MM3 CBC Comment DIFF FINAL Differential Comment Microbiology Date/Time Procedure Status Source Growth 03/25/17 14:15 Aerobic Blood Culture - Preliminary Resulted Blood Peripheral NO GROWTH IN 3 DAYS 03/25/17 14:15 Anaerobic Blood Culture - Preliminary Resulted Blood Peripheral NO GROWTH IN 3 DAYS 03/25/17 14:20 Aerobic Blood Culture - Preliminary Resulted Blood Peripheral NO GROWTH IN 3 DAYS 03/25/17 14:20 Anaerobic Blood Culture - Preliminary Resulted Blood Peripheral NO GROWTH IN 3 DAYS Imaging Chest X-Ray 03/26/17 1300 Signed Impressions: Service Date/Time: Sunday, March 26, 2017 12:48 - CONCLUSION: 1. Right chest tube has been removed. No pneumothorax is visualized. 2. Stable bilateral airspace consolidation. 3. Stable right apical opacity. Jonh Bragg MD Chest X-Ray 03/26/17 0000 Signed Impressions: Service Date/Time: Sunday, March 26, 2017 11:07 - CONCLUSION: Developing diffuse left lung infiltrate. Stable findings in the right John aBrba MD Chest X-Ray 03/25/17 0000 Signed Impressions: Service Date/Time: Saturday, March 25, 2017 04:06 - CONCLUSION: 1. Right chest tube without significant pneumothorax. Relatively stable small right basilar pleural effusion. Stable to slight increase in loculated fluid upper right hemithorax. Stable right basilar airspace disease. Max De La Cruz MD Chest X-Ray 03/24/17 0600 Signed Impressions: Service Date/Time: Friday, March 24, 2017 04:39 - CONCLUSION: 1. Small caliber right chest tube with decrease in size of loculated right pleural effusion. Basilar effusions and airspace disease persists. aMx De La Cruz MD Physical Exam GENERAL: awake and alert, not in respiratory distress. SKIN: Warm and dry. No generalized rash HEAD: Atraumatic. Normocephalic. No temporal wasting, or tenderness. EYES: [place] conjunctiva. No petechia or hemorrhage. No scleral icterus. No injection or drainage. EARS, NOSE AND THROAT: Nose without bleeding or purulent nasal discharge. Mucous membranes pink and moist. No oral lesions noted. NECK: Trachea midline. Supple and not tender, no meningeal signs CARDIOVASCULAR: Regular rate and rhythm. No murmurs, rubs or gallops heard RESPIRATORY: Scattered rales. Decreased BS at bases, and in R upper lung field. Better air movement on R side. ABDOMEN: Soft, non-tender, nondistended. Has well healed abdominal incision. No guarding. No rebound. No organomegaly. EXTREMITIES: No clubbing, cyanosis, or edema.No joint effusion, has good ROM. No calf tenderness. Well perfused and warm. NEUROLOGICAL: Grossly non-focal PSYCHIATRIC: Normal affect, calm and cooperative. LINE: PIV with no evidence of infection. Port not accessed, unremarkable Assessment & Plan Remarks IMPRESSION Sepsis, etiology? new Admitted with R pleural effusion - cytology indeterminate for malignancy - no fluid analysis done on initial tap, underwent talc pleurodesis 03/20 Pleural fluid from loculated R apical fluid, C/S MSSA, ?significance, real? - repeat CT with multiple loculations but no air or gas seen Fevers, ?due to fluid, ?PNA (has some infiltrates now also on L side) - temps seem better since Levaquin added Pancreatic CA with mets, S/P Whipple 2014 RECOMMENDATION Stop Ancef Continue Levaquin Monitor temps - if no temps greater than 100 in next 24 hours, would be ok for D/C tomorrow and give 14 days Levaquin on D/C Monitor progress Explained plan and recommendation to the patient Sydnee Traylor MD March 28, 2017 14:01
[2017-03-28] MEDS: DOCUSATE SODIUM 100 MG CAP PO SCH (14:30)
[2017-03-28] MEDS: TEMAZEPAM 15 MG CAP PO PRN (23:45)
[2017-03-29] VITALS (7 sets, daily range): BP systolic 92–112; BP diastolic 53–67; PULSE 68–98; RESP 16–20; TEMP 97.4–98.5; O2SAT 90–96
[2017-03-29] MEDS: DOCUSATE SODIUM 100 MG CAP PO SCH ×2 (02:30→14:30)
[2017-03-29] MEDS ORDERED: PILL SPLITTER OTHER PRN (07:30)
[2017-03-29] MEDS: buPROPion HCL 100 MG SUSTAINED RELEASE TAB PO SCH (08:11)
[2017-03-29] MEDS: LEVOFLOXACIN 750 MG TAB PO SCH (08:11)
[2017-03-29] MEDS: CHLORPHENIR/HYDROCOD LIQUID 8 MG/10 MG/5 ML CUP PO SCH (08:11)
[2017-03-29] MEDS: SODIUM CHLORIDE 0.9% FLUSH 10 ML FLUSH IV FLUSH SCH (09:00)
[2017-03-29] MEDS ORDERED: amLODIPine BESYLATE 5 MG TAB PO SCH (09:00)
[2017-03-29] MEDS: LIPASE/PROTEASE/AMYLASE (24,000/76,000/120,000) CAP PO SCH ×2 (09:30→12:49)
[2017-03-29] MEDS ORDERED: OXYGENTANK NAS.CANULA (09:40)
--- NOTE | 2017-03-29 10:15 | HHI.IDPN ---
Subjective Subjective Remarks 67 year old female admitted for SOB. Found to have new R pleural effusion Fluid tap, cytology inconclusive for malignancy S/P talc pleurodesis 03/20 03/22 CXR showed loculated R upper lung effusion - had placement of pigtail cath Has been having fevers since 03/17, 100+; higher temp spike since 03/23 Last high fever yesterday at 4 pm Pigtail cath removed 03/26. Has been afebrile >24 hours Cough better Not SOB, no CP CT chest with multiple loculated effusions - no gas in any of the effusions, also with ramez infiltrates No N/V No diarrhea Antibiotics Levaquin Lines PIV Port - not being used Past Medical History Pancreatic cancer with metastasis to the lung, liver, stomach HTN Past Surgical History Whipple procedure 2014 Lower lip surgery Exploratory lap Cyst removal right buttocks Allergies: Coded Allergies: Morphine (Verified Allergy, Severe, Rash, 03/16/17) Objective . Vital Signs Date Time Temp Pulse Resp B/P Pulse Ox O2 Delivery O2 Flow Rate FiO2 03/29/17 08:37 95 Nasal Cannula 2.00 03/29/17 08:37 2.00 03/29/17 07:50 98.0 78 20 104/67 95 03/29/17 07:24 98 03/29/17 04:00 98.3 83 18 112/61 90 03/29/17 00:00 97.4 68 16 92/53 93 03/28/17 20:28 77 03/28/17 20:15 Nasal Cannula 2.00 03/28/17 20:00 98.2 76 16 103/56 95 03/28/17 15:46 99.7 79 20 106/65 94 03/28/17 11:50 98.1 80 20 106/66 94 03/28/17 03/28/17 03/29/17 15:00 23:00 07:00 Intake Total 1800 ml 720 ml 1046 ml Balance 1800 ml 720 ml 1046 ml Intake Oral 1800 ml 720 ml 1046 ml # Voids 3 # Bowel Movements 1 . Laboratory Tests Test 03/28/17 05:40 White Blood Count 9.5 TH/MM3 Red Blood Count 2.95 MIL/MM3 Hemoglobin 8.8 GM/DL Hematocrit 27.0 % Mean Corpuscular Volume 91.4 FL Mean Corpuscular Hemoglobin 29.8 PG Mean Corpuscular Hemoglobin 32.6 % Concent Red Cell Distribution Width 15.5 % Platelet Count 532 TH/MM3 Mean Platelet Volume 7.8 FL Neutrophils (%) (Auto) 72.3 % Lymphocytes (%) (Auto) 12.7 % Monocytes (%) (Auto) 10.9 % Eosinophils (%) (Auto) 3.6 % Basophils (%) (Auto) 0.5 % Neutrophils # (Auto) 6.9 TH/MM3 Lymphocytes # (Auto) 1.2 TH/MM3 Monocytes # (Auto) 1.0 TH/MM3 Eosinophils # (Auto) 0.3 TH/MM3 Basophils # (Auto) 0.0 TH/MM3 CBC Comment DIFF FINAL Differential Comment Imaging Chest X-Ray 03/26/17 1300 Signed Impressions: Service Date/Time: Sunday, March 26, 2017 12:48 - CONCLUSION: 1. Right chest tube has been removed. No pneumothorax is visualized. 2. Stable bilateral airspace consolidation. 3. Stable right apical opacity. John Bragg MD Chest X-Ray 03/26/17 0000 Signed Impressions: Service Date/Time: Sunday, March 26, 2017 11:07 - CONCLUSION: Developing diffuse left lung infiltrate. Stable findings in the right John Barba MD Chest X-Ray 03/25/17 0000 Signed Impressions: Service Date/Time: Saturday, March 25, 2017 04:06 - CONCLUSION: 1. Right chest tube without significant pneumothorax. Relatively stable small right basilar pleural effusion. Stable to slight increase in loculated fluid upper right hemithorax. Stable right basilar airspace disease. Max De La Cruz MD Chest X-Ray 03/24/17 0600 Signed Impressions: Service Date/Time: Friday, March 24, 2017 04:39 - CONCLUSION: 1. Small caliber right chest tube with decrease in size of loculated right pleural effusion. Basilar effusions and airspace disease persists. Max De La Cruz MD Physical Exam GENERAL: awake and alert, not in respiratory distress. SKIN: Warm and dry. No generalized rash HEAD: Atraumatic. Normocephalic. No temporal wasting, or tenderness. EYES: [place] conjunctiva. No petechia or hemorrhage. No scleral icterus. No injection or drainage. EARS, NOSE AND THROAT: Nose without bleeding or purulent nasal discharge. Mucous membranes pink and moist. No oral lesions noted. NECK: Trachea midline. Supple and not tender, no meningeal signs CARDIOVASCULAR: Regular rate and rhythm. No murmurs, rubs or gallops heard RESPIRATORY: Scattered rales. Decreased BS at bases, and in R upper lung field. Better air movement on R side. ABDOMEN: Soft, non-tender, nondistended. Has well healed abdominal incision. No guarding. No rebound. No organomegaly. EXTREMITIES: No clubbing, cyanosis, or edema.No joint effusion, has good ROM. No calf tenderness. Well perfused and warm. NEUROLOGICAL: Grossly non-focal PSYCHIATRIC: Normal affect, calm and cooperative. LINE: PIV with no evidence of infection. Port not accessed, unremarkable Assessment & Plan Remarks IMPRESSION Sepsis, etiology? new Admitted with R pleural effusion - cytology indeterminate for malignancy - no fluid analysis done on initial tap, underwent talc pleurodesis 03/20 Pleural fluid from loculated R apical fluid, C/S MSSA, ?significance, real? - repeat CT with multiple loculations but no air or gas seen Fevers, ?due to fluid, ?PNA (has some infiltrates now also on L side) - temps seem better since Levaquin added - likely due to PNA Pancreatic CA with mets, S/P Whipple 2013 RECOMMENDATION Continue Levaquin She is clinically doing well She can be D/C from ID standpoint and complete Rx with Levaquin - end date April 10 Explained plan and recommendation to the patient D/W Sydnee Brandon MD March 29, 2017 10:15
--- NOTE | 2017-03-29 11:29 | PD.ONC.PN ---
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 Objective Data Date Time Temp Pulse Resp B/P Pulse Ox O2 Delivery O2 Flow Rate FiO2 03/29/17 08:37 95 Nasal Cannula 2.00 03/29/17 08:37 2.00 03/29/17 07:50 98.0 78 20 104/67 95 03/29/17 07:24 98 03/29/17 04:00 98.3 83 18 112/61 90 03/29/17 00:00 97.4 68 16 92/53 93 03/28/17 20:28 77 03/28/17 20:15 Nasal Cannula 2.00 03/28/17 20:00 98.2 76 16 103/56 95 03/28/17 15:46 99.7 79 20 106/65 94 03/28/17 11:50 98.1 80 20 106/66 94 Result Diagram: 03/28/17 0540 03/25/17 1420 Administered Medications Medications (Trade) Dose Ordered Sig/Jaziel Route PRN Reason Start Time Stop Time Status Last Admin Dose Admin Sodium Chloride (NS Flush) 2 ml BID IV FLUSH 03/16/17 21:00 03/29/17 09:00 Acetaminophen (Tylenol) 650 mg Q4H PRN PO TEMP > 100.4 03/16/17 14:30 03/27/17 13:49 Docusate Sodium (Colace) 100 mg Q12H PO 03/16/17 14:30 03/25/17 13:58 Temazepam (Restoril) 15 mg HS PRN PO INSOMNIA 03/16/17 14:30 03/28/17 23:45 Bupropion HCl (Wellbutrin Sr 12 Hr) 200 mg DAILY PO 03/17/17 09:00 03/29/17 08:11 Oxycodone HCl (Roxicodone) 10 mg Q4H PRN PO PAIN SCALE 6 TO 10 03/19/17 09:30 03/29/17 06:13 Oxycodone HCl (Roxicodone) 5 mg Q4H PRN PO PAIN SCALE 3 TO 5 03/19/17 09:30 03/26/17 17:32 Amylase/Lipase/ Protease (Creon 24-76-120) 4 cap TIDPC PO 03/19/17 13:30 03/29/17 09:30 Chlorphenir/ Hydrocodone Polistirex (Tussionex Liq) 5 ml Q12HR PO 03/23/17 21:00 03/29/17 08:11 Enoxaparin Sodium 40 mg 40 mg Q24H SQ 03/25/17 14:00 03/28/17 12:33 Potassium Chloride/Dextrose/ Sod Cl (D5-NS + KCl 20 Meq Inj) 1,000 ml @ 70 mls/hr [id number] IV 03/25/17 13:30 03/28/17 13:00 Levofloxacin (Levaquin) 750 mg DAILY PO 03/27/17 10:15 04/10/17 23:00 03/29/17 08:11 Objective Remarks GENERAL: Older female, sitting up in bed in no distress. SKIN: Warm and dry. HEAD: Normocephalic. EYES: No injection or drainage. NECK: Supple, trachea midline. CARDIOVASCULAR: +S1/S2. RESPIRATORY: Crackles to RML, RLL. Clear posteriorly otherwise. On 3L NC. GASTROINTESTINAL: Abdomen soft, non-tender, nondistended. EXTREMITIES: No cyanosis, or edema. NEUROLOGICAL: No obvious focal deficit. Awake, alert, and oriented x3. Assessment/Plan Assessment 67 y/o female with history of pancreatic cancer admitted with SOB and pleural effusion. Plan 1. Pt to have walk test today; she will likely need home O2 therapy. 2. Continue Levaquin. Will not plan on chemotherapy this week. Wait until infection cleared further. (Likely Sunday of next week). 3. OK for discharge from oncology standpoint. 4. Will make appt with Dr Reynolds for followup. Lesa Maloney March 29, 2017 11:29
--- NOTE | 2017-03-29 11:55 | HHI.PR ---
Subjective Remarks patient doing very well, comfortalbe no pain, nauea or vomiting Objective Vitals Vital Signs Date Time Temp Pulse Resp B/P Pulse Ox O2 Delivery O2 Flow Rate FiO2 03/29/17 08:37 95 Nasal Cannula 2.00 03/29/17 08:37 2.00 03/29/17 07:50 98.0 78 20 104/67 95 03/29/17 07:24 98 03/29/17 04:00 98.3 83 18 112/61 90 03/29/17 00:00 97.4 68 16 92/53 93 03/28/17 20:28 77 03/28/17 20:15 Nasal Cannula 2.00 03/28/17 20:00 98.2 76 16 103/56 95 03/28/17 15:46 99.7 79 20 106/65 94 I/O 03/28/17 03/28/17 03/28/17 03/29/17 03/29/17 03/29/17 07:00 15:00 23:00 07:00 15:00 23:00 Intake Total 480 ml 1800 ml 720 ml 1046 ml Balance 480 ml 1800 ml 720 ml 1046 ml Intake Oral 480 ml 1800 ml 720 ml 1046 ml # Voids 2 3 # Bowel Movements 1 Result Diagram: 03/28/17 0540 03/25/17 1420 Imaging Last Impressions Chest CT 03/27/17 0000 Signed Impressions: Service Date/Time: Monday, March 27, 2017 11:15 - CONCLUSION: 1. There are loculated pleural fluid collections in the upper, mid, and inferior right hemithorax. There is new linear high density material on the pleural surface (both visceral and parietal) inferiorly and posteriorly. This is from uncertain etiology since it was not present previously. Question whether there has been any attempt at pleurodesis. 2. In the right lung there are areas of atelectasis as well as airspace consolidation adjacent to the pleural fluid collections. In the left lung there is groundglass opacity in the left upper and left lower lobe. John Bragg MD Chest X-Ray 03/26/17 1300 Signed Impressions: Service Date/Time: Sunday, March 26, 2017 12:48 - CONCLUSION: 1. Right chest tube has been removed. No pneumothorax is visualized. 2. Stable bilateral airspace consolidation. 3. Stable right apical opacity. John Bragg MD Chest Tube Insertion 03/22/17 1435 Signed Impressions: Service Date/Time: March 14:19 - CONCLUSION: Uncomplicated chest tube placement as above. Nolan Bryan MD CT Angiography 03/16/17 1156 Signed Impressions: Service Date/Time: Thursday, March 16, 2017 13:05 - CONCLUSION: Large right hemithorax needle thoracentesis Either biliary air or or portal air. CT scan of the abdomen and pelvis is suggested in this patient who has had previous Whipple. Mihai Harper MD FACR Objective Remarks awake and alert, NAD anicteric better breath sounds, previous chest tube sites- dry, no erythema regular rhythm abdomen soft extremities no edema neuro exam- non focal Procedures chest tube placement 03/22 A/P Assessment and Plan 67-year-old female with: Shortness of breath and moderate large right pleural effusion, likely malignant. Chest tube placed 03/16 Dr Coello CTS. Sepsis - possible Empyema- growing S. Aureus in pleural fluid- final C and s not back yet Small Pneumothorax 5% s/p Talc pleurodesis 03/20 Pancreatic cancer with metastasis to the lung, liver, stomach, Whipple procedure [address] Reynolds oncology recently restarted chemo CT Chest reviewed findings discussed with ER PA, patient. S/P Right chest tube insertion by Dr Coello CTS on 03/16/17. Improving. still with > 500 cc fluid draining - Plan for pleurodesis per CTS CXR 03/17 reviewed and discussed with the patient Small 5 mm right apical pneumothorax. Patient is satting well on nasal canula. Oxygen supplied by nasal cannula, keep oxygen saturation more than 92%. She is saturating well on 2 L nasal cannula at this time. Monitor closely. Dilaudid for breakthrough pain increased as patient with more pain. Change norco ro oxycodone as works better per patient. Patient is allergic to morphine. chest tube removed 03/26 no chest tubes in place CT of the chest resulted-- reviewed films with ID- Cleared for DC today on Levaquin till 04/10 HTN. -some SBP in the 90- better readings - we've been holding her amlodipine- d/w her to monitor BPs and hold amlodpine and ff up with PCP Monitor blood pressure and adjust medications as needed. DVT prophylaxis SCD/teds. Hold on chemical prophylaxis at this time due to chest tube, restart as indicated by CTS Discharge Planning DC today FF up with PCP FF up with CTS on Sunday FF up with [place]- Dr. Reynolds- patient will call for Charlotte Corral MD March 29, 2017 11:55
[2017-03-29] MEDS ORDERED: LEVO750T3 PO (12:00)
[2017-03-29] MEDS ORDERED: DOCU1CAP39 PO (12:02)
[2017-03-29] MEDS ORDERED: OXYC-392 PO (12:02)
--- NOTE | 2017-03-29 12:13 | HHI.DS ---
Discharge Summary Admission Date March 16, 2017 at 14:28 Discharge Date: March 29, 2017 Admitting Diagnosis right pleural effusion, pancreatic cancer with mets (1) 2) Pleural effusion on right/ s/p chest tube placement (2) Pancreatic cancer ICD Code: C25.9 (3) Pleural effusion on right ICD Code: J90 Procedures chest tube placement 03/22 Brief History - From Admission The patient is a very pleasant 69-year-old female with past medical history pancreatic cancer with metastasis to the lung, liver, stomach, Whipple procedure 2013, currently restarted with Dr. Reynolds oncology. The patient seen today by Dr. Reynolds's office who sent her here for further evaluation of breath. There is a concern lower infusion versus PE. Patient had a CTA in the emergency room shows right pleural effusion. Dr. Reynolds recommended CT surgeon for evaluation, chest tube vs thoracentesis. Patient says shortness of breath started for the past 5 days, associated lower extremity edema for the past 3 days. She has some shortness of breath with ambulation and she feels tired. She has constant right back pain. The pain is worse when lying down and with certain movements. She has a non-productive cough. Denies fever or chills. Denies headaches, lightheadedness, chest pain, palpitations, diaphoresis. No nausea or vomiting. Has normal bowel movements. Says she takes Creon. No urinary complaints. No bladder or bowel incontinence. No motor or sensory deficit. CBC/BMP: 03/28/17 0540 03/25/17 1420 Significant Findings Laboratory Tests Test 03/28/17 05:40 Red Blood Count 2.95 MIL/MM3 (4.00-5.30) Hemoglobin 8.8 GM/DL (11.6-15.3) Hematocrit 27.0 % (35.0-46.0) Platelet Count 532 TH/MM3 (150-450) Neutrophils (%) (Auto) 72.3 % (16.0-70.0) Monocytes (%) (Auto) 10.9 % (0.0-8.0) Monocytes # (Auto) 1.0 TH/MM3 (0-0.9) Imaging Last Impressions Chest CT 03/27/17 0000 Signed Impressions: Service Date/Time: Monday, March 27, 2017 11:15 - CONCLUSION: 1. There are loculated pleural fluid collections in the upper, mid, and inferior right hemithorax. There is new linear high density material on the pleural surface (both visceral and parietal) inferiorly and posteriorly. This is from uncertain etiology since it was not present previously. Question whether there has been any attempt at pleurodesis. 2. In the right lung there are areas of atelectasis as well as airspace consolidation adjacent to the pleural fluid collections. In the left lung there is groundglass opacity in the left upper and left lower lobe. John Bragg MD Chest X-Ray 03/26/17 1300 Signed Impressions: Service Date/Time: Sunday, March 26, 2017 12:48 - CONCLUSION: 1. Right chest tube has been removed. No pneumothorax is visualized. 2. Stable bilateral airspace consolidation. 3. Stable right apical opacity. John Bragg MD Chest Tube Insertion 03/22/17 1435 Signed Impressions: Service Date/Time: March 14:19 - CONCLUSION: Uncomplicated chest tube placement as above. Nolan Bryan MD CT Angiography 03/16/17 1156 Signed Impressions: Service Date/Time: Thursday, March 16, 2017 13:05 - CONCLUSION: Large right hemithorax needle thoracentesis Either biliary air or or portal air. CT scan of the abdomen and pelvis is suggested in this patient who has had previous Whipple. Mihai Harper MD FACR PE at Discharge awake and alert, NAD, good sats at 2LNC- patient wualified for home 02 anicteric better breath sounds, previous chest tube sites- dry, no erythema regular rhythm abdomen soft extremities no edema neuro exam- non focal Pt update on day of discharge awake and alert, comfortalbe, on 02 NC- good sats no leg swelling pain controlled Hospital Course 67-year-old female with: Shortness of breath and moderate large right pleural effusion, likely malignant. Chest tube placed 03/16 Dr Coello CTS. Sepsis - possible Empyema- growing S. Aureus in pleural fluid- final C and s not back yet Small Pneumothorax 5% s/p [place] pleurodesis 03/20 Pancreatic cancer with metastasis to the lung, liver, stomach, Whipple procedure [address] Reynolds oncology recently restarted chemo CT Chest reviewed findings discussed with ER PA, patient. S/P Right chest tube insertion by Dr Coello CTS on 03/16/17. Improving. still with > 500 cc fluid draining - Plan for pleurodesis per CTS CXR 03/17 reviewed and discussed with the patient Small 5 mm right apical pneumothorax. Patient is satting well on nasal canula. Oxygen supplied by nasal cannula, keep oxygen saturation more than 92%. She is saturating well on 2 L nasal cannula at this time. Monitor closely. Dilaudid for breakthrough pain increased as patient with more pain. Change norco ro oxycodone as works better per patient. Patient is allergic to morphine. chest tube removed 03/26 no chest tubes in place CT of the chest resulted-- reviewed films with ID- Cleared for DC today on Levaquin till 04/10 HTN. -some SBP in the 90- better readings - we've been holding her amlodipine- d/w her to monitor BPs and hold amlodpine and ff up with PCP Monitor blood pressure and adjust medications as needed. DVT prophylaxis SCD/teds. Hold on chemical prophylaxis at this time due to chest tube, restart as indicated by CTS Discharge Planning DC today FF up with PCP FF up with CTS on Sunday FF up with [place]- Dr. Reynolds- patient will call for appt Pt Condition on Discharge: Stable Discharge Disposition: Disch w/ Home Health Serv Discharge Time: <= 30 minutes Discharge Instructions DIET: Follow Instructions for: As Tolerated, No Restrictions, Heart Healthy Diet Speech Therapy-Diet Recommends: Regular Activities you can perform: Weight Bearing as Deangelo Activities to Avoid: Strenuous Activity Follow up Referrals: Oncology - 3-5 Days with alisa PCP Follow-up - 3-5 Days with [facility] - 2 Weeks with Emily Yaadv MD New Medications: Oxygen tank (Oxygen tank) 1 Ea Tank 2 LITER JANNETTE.CANULA CONTINUOUS Oxygen Concentrator Portable Gaseous 2 L/min via Nasal Cannula Continuous For 99 months HYPOXEMIA PREVENTION #2 CYLINDER Docusate Sodium (Dok) 100 Mg Cap 100 MG PO Q12H constip #20 CAP Levofloxacin (Levofloxacin) 750 Mg Tablet 750 MG PO DAILY Infection Days 11 Ref 0 TAB Oxycodone (Oxycodone) 5 Mg Tab 10 MG PO Q6HR PRN PAIN SCALE 6 TO 10 #30 Ref 0 TAB Continued Medications: Bupropion HCl ER 24 HR (Wellbutrin Xl 24 HR) 150 Mg Tab 200 MG PO DAILY Control Depression Ref 0 TAB Pancrelipase (Creon) 24,000-76,000-120,000 Units Cap 4 CAP PO TIDPC Digestive Aid #90 Ref 0 CAP Discontinued Medications: Amlodipine (Norvasc) 5 Mg Tab 5 MG PO DAILY Blood Pressure Management #30 Ref 0 TAB Charlotte Sanchez MD March 29, 2017 12:13
[2017-03-29] MEDS: ENOXAPARIN SODIUM 40 MG/0.4 ML SYRINGE SQ SCH (14:00)
--- NOTE | 2017-04-24 12:00 | PQ ---
Physician Query Response Document PATIENT: LOVE ANGULO : 1950 ADMIT DATE: 03/16/2017 2:28 PM DISCH DATE: 03/29/2017 6:32 PM RESPONDING PROVIDER #: Renny QUERY TEXT: Pneumonia Specificity Pneumonia is documented in the Medical Record. Please specify the type of pneumonia and the causative organism (includes probable or suspected) Such as: Type: -- Aspiration pneumonia (please also specify the aspirate) - Homer (please specify cause) - Please indicate if the aspiration is postprocedure -- Bacterial (please document suspected or probable organism) -- Bronchopneumonia (please document suspected or probable organism) -- Interstitial pneumonia -- Organizing pneumonia / BOOP -- Pneumonia with influenza, manuel flu, or H1N1 flu -- RSV -- Tuberculosis, pulmonary -- Viral -- Other, please specify If you have any additional questions/comments and/or concerns, please do not hesitate to reach out to the CDI/Coding Hotline, Ext. [phone]. The patient's Clinical Indicators include: Discharge Summary under Hospital Course: CT of the chest resulted-- reviewed films with ID- Cleared for DC today on Levaquin till 04/10 ID Progress Note of 03/29/17: Fevers, ?due to fluid, ?PNA (has some infiltrates now also on L side) - temps seem better since Levaquin added - likely due to PNA Sepsis first documented in 03/24/17 Progress note. Sepsis - possible Empyema- growing S. Aureus in pleural fluid. Query created by: Oliva Mayer on 04/03/2017 9:02 AM RESPONSE TEXT: S. Aureus empyema Electronically signed by: Charlotte Sanchez MD 04/24/2017 11:56 AM
== END 2017-03-29 18:32 | disposition home health service (06) | DRG 186 ==
LOC: NEPE 11:41 → NEDA 14:28 → HOCB 16:31
PROVIDERS: ADMIT Internal Medicine; ATTEND Internal Medicine
PROC: 0W9930Z Drainage of Right Pleural Cavity with Drainage Device, Percutaneous Approach (ICD-10-PCS; 2017-03-16)
PROC: 3E0L3GC Introduction of Other Therapeutic Substance into Pleural Cavity, Percutaneous Approach (ICD-10-PCS; principal; 2017-03-20)
PROC: 0W9930Z Drainage of Right Pleural Cavity with Drainage Device, Percutaneous Approach (ICD-10-PCS; 2017-03-22)
DX: J90 Pleural effusion, not elsewhere classified (principal); A41.01 Sepsis due to Methicillin susceptible Staphylococcus aureus; J86.9 Pyothorax without fistula; C78.00 Secondary malignant neoplasm of unspecified lung; C25.9 Malignant neoplasm of pancreas, unspecified; C78.89 Secondary malignant neoplasm of other digestive organs; C78.7 Secondary malignant neoplasm of liver and intrahepatic bile duct; K86.89 Other specified diseases of pancreas; J93.9 Pneumothorax, unspecified; B95.61 Methicillin susceptible Staphylococcus aureus infection as the cause of diseases classified elsewhere; I10 Essential (primary) hypertension; Z92.21 Personal history of antineoplastic chemotherapy; F32.9 Major depressive disorder, single episode, unspecified; E87.6 Hypokalemia; Z88.5 Allergy status to narcotic agent
CPT/HCPCS: 32557; 36415; 71010; 71250; 71275; 80048; 81001; 83735; 83880; 84100; 85007; 85025; 85027; 85610; 85730; 86403; 87040; 87070; 87147; 87186; 87205; 88112; 88305; 89051; 94150; 94620; 99212; 99215; C1729; G0463; J0690; J1170; J1650; J2250; J2543; J3010; J3370; J3480; J7050; Q9967